=== PATIENT | male | born 1925 | race Caucasian/White ===

== ENCOUNTER 2016-12-26 11:50 | Inpatient (IN) | payer MEDICARE, OTHER ==
[2016-12-26] VITALS (29 sets, daily range): BP systolic 107–173; BP diastolic 56–147; PULSE 49–108; RESP 20; TEMP 93.5
[~2016-12-26] VITALS: Ht 157.5 cm; Wt 65.0 kg
[~2016-12-26 11:50] MED LIST: EPINEPHrine 0.1 MG/ML SYG ONE
[2016-12-26] MEDS ORDERED: VECURONIUM 100 MG in DEXTROSE 5% 100 ML IV ONE (11:54)
[2016-12-26] MEDS ORDERED: SODIUM CHLORIDE 0.9% 500 ML BAG IV* STA (11:54)
[2016-12-26] MEDS ORDERED: SOD CHLORIDE 0.9% 1,000 ML IV STA ×2 (11:54)
[2016-12-26] MEDS ORDERED: CEFEPIME 2GM/50 ML (PMX) 50 ML IVPB STA (11:54)
[2016-12-26] MEDS ORDERED: PROPOFOL 100 ML IV STA (11:54)
[2016-12-26] MEDS ORDERED: VECURONIUM 10 MG VIAL IV ONE (12:00)
[2016-12-26] MEDS ORDERED: VANCOMYCIN 1 GM (PMX) 250 ML IVPB ONE (12:00)
[2016-12-26] MEDS ORDERED: ASPIRIN 300 MG SUPP PR ONE (12:30)
[2016-12-26 12:36] LABS: WHITE BLOOD COUNT 13.1 10^3/ul (4.8-10.8)
[2016-12-26 12:37] LABS: ABNORMAL IP MESSAGE 1; BASOPHILS % 0.2 % (0.0-2.0); EOSINOPHILS # 0.2 10^3/ul (0.0-0.5); EOSINOPHILS % 1.3 % (0.0-7.0); HEMATOCRIT 36.7 % (42.0-52.0); HEMOGLOBIN 10.7 g/dl (14.0-18.0); LYMPHOCYTES % 30.5 % (15.0-51.0); MEAN CORPUSCULAR HEMOGLOBIN 29.6 pg (29.0-33.0); MEAN CORPUSCULAR HGB CONC 29.2 g/dl (32.0-37.0); MEAN CORPUSCULAR VOLUME 101.7 fl (82.0-101.0); MEAN PLATELET VOLUME 11.5 fl (7.4-10.4); MONOCYTE # 0.6 10^3/ul (0.3-0.9); MONOCYTES % 4.4 % (0.0-11.0); NEUTROPHIL # 7.5 10^3/ul (1.6-7.5); PLATELET COUNT 179 10^3/UL (140-415); POSITIVE DIFF @See below; RED BLOOD COUNT 3.61 10^6/ul (4.70-6.10)
[2016-12-26 12:52] LABS: INR 1.14; PROTIME 14.6 Sec (12.2-14.2); PT RATIO 1.1
[2016-12-26 12:53] LABS: PARTIAL THROMBOPLASTIN TIME 30.9 Sec (25.0-35.0)
[2016-12-26 12:57] LABS: ALANINE AMINOTRANSFERASE 55 IU/L (13-69); ALKALINE PHOSPHATASE 120 IU/L (42-121); ANION GAP 21 (8-16); ASPARTATE AMINO TRANSFERASE 71 IU/L (15-46); BILIRUBIN,INDIRECT 0.3 mg/dl (0-1.1); BILIRUBIN,TOTAL 0.3 mg/dl (0.2-1.3); BLOOD UREA NITROGEN 18 mg/dl (7-20); CALCIUM 8.1 mg/dl (8.4-10.2); CARBON DIOXIDE 22 mmol/L (21-31); CHLORIDE 104 mmol/L (97-110); CREATININE 1.07 mg/dl (0.61-1.24); GLUCOSE 270 mg/dl (70-220); PHOSPHORUS 7.6 mg/dl (2.5-4.9); SODIUM 143 mmol/L (135-144)
--- NOTE | 2016-12-26 13:00 | RADRPT ---
PROCEDURE: XR Chest 1 View. CLINICAL INDICATION: Chest pain, status post cardiac arrest. TECHNIQUE: AP view of the chest was obtained. COMPARISON: None. FINDINGS: The heart size is within normal limits. Calcified atherosclerosis is noted in the aorta. Endotrache al tube has its tip approximately 4.4 cm above the june. Mild central pulmonary vascular congestio n and interstitial prominence is seen in both lungs. Scattered atelectasis is noted in the bilateral lower lungs. No consolidations are identified. No pneumothorax is seen. Skin folds are seen over t he lateral left mid chest. The osseous structures appear grossly intact. IMPRESSION: Calcified atherosclerosis in the aorta. Endotracheal tube with its tip approximately 4.4 cm above the june. Mild central pulmonary vascular congestion and interstitial prominence in both lungs. Scattered atelectasis in the bilateral lower lungs. RPTAT: AA .Jr Andrade MD, Date Time Electronically viewed and signed by .Jr Andrade MD, on 12/26/2016 12:59 .P/
[2016-12-26 13:08] LABS: TROPONIN-I < 0.012 ng/ml (0.00-0.12)
--- NOTE | 2016-12-26 13:56 | ERD ---
ER Documentation Chief Complaint Chief Complaint cardiac arrest PEA in route, epi x2 given HPI Patient is an 89-year-old male who was brought in in full cardiac arrest. Please note the history and physical exam is limited given the patient's mental status. The patient was brought in by ambulance. He had a cardiac arrest at a nursing facility. He was given 2 epinephrine and was intubated in the field. End-tidal CO2 was within normal limits. When he arrived he was still receiving CPR by paramedics. I cannot obtain history otherwise. ROS All systems reviewed and are negative except as per history of present illness. Medications Home Meds Unable to Obtain Active Prescriptions or Reported Meds Allergies Allergies: Coded Allergies: Unknown: Unable to obtain (Unverified , 12/26/16) PMhx/Soc Medical and Surgical Hx: Unable to obtain Hx Alcohol Use: No Hx Substance Use: No Hx Tobacco Use: No Smoking Status: Unknown if ever smoked FmHx Unable to obtain Physical Exam Vitals Vital Signs Date Time Temp Pulse Resp B/P Pulse Ox O2 Delivery O2 Flow Rate FiO2 12/26/16 13:29 93.6 100 20 120/80 100 Room Air 12/26/16 12:26 20 100 100 12/26/16 12:09 96.4 12/26/16 11:54 96.4 45 19 92/58 97 Mechanical Ventilator 15.0 Physical Exam Const: [] Head: Atraumatic Eyes: Normal Conjunctiva ENT: Normal External Ears, Nose and Mouth. Neck: Full range of motion..~ No meningismus. Resp: Clear to auscultation bilaterally Cardio: Regular rate and rhythm, no murmurs Abd: Soft, non tender, non distended. Normal bowel sounds Skin: No petechiae or rashes Back: No midline or flank tenderness Ext: No cyanosis, or edema Neur: Awake and alert Psych: Normal Mood and Affect Result Diagram: 12/26/16 1220 12/26/16 1220 Results 24 hrs Laboratory Tests Test 12/26/16 12:20 White Blood Count 13.110^3/ul Red Blood Count 3.6110^6/ul Hemoglobin 10.7g/dl Hematocrit 36.7% Mean Corpuscular Volume 101.7fl Mean Corpuscular Hemoglobin 29.6pg Mean Corpuscular Hemoglobin Concent 29.2g/dl Red Cell Distribution Width 14.0% Platelet Count 12472^3/UL Mean Platelet Volume 11.5fl Neutrophils % 57.0% Lymphocytes % 30.5% Monocytes % 4.4% Eosinophils % 1.3% Basophils % 0.2% Nucleated Red Blood Cells % 0.0/100WBC Neutrophils # 7.510^3/ul Lymphocytes # 4.010^3/ul Monocytes # 0.610^3/ul Eosinophils # 0.210^3/ul Basophils # 0.010^3/ul Nucleated Red Blood Cells # 0.010^3/ul Prothrombin Time 14.6Sec Prothrombin Time Ratio 1.1 INR International Normalized Ratio 1.14 Activated Partial Thromboplast Time 30.9Sec Sodium Level 143mmol/L Potassium Level 4.0mmol/L Chloride Level 104mmol/L Carbon Dioxide Level 22mmol/L Anion Gap 21 Blood Urea Nitrogen 18mg/dl Creatinine 1.07mg/dl Glucose Level 270mg/dl Lactic Acid Level 9.5mmol/L Calcium Level 8.1mg/dl Phosphorus Level 7.6mg/dl Magnesium Level 2.0mg/dl Total Bilirubin 0.3mg/dl Direct Bilirubin 0.00mg/dl Indirect Bilirubin 0.3mg/dl Aspartate Amino Transf (AST/SGOT) 71IU/L Alanine Aminotransferase (ALT/SGPT) 55IU/L Alkaline Phosphatase 120IU/L Troponin I < 0.012ng/ml Total Protein 6.0g/dl Albumin 3.0g/dl Globulin 3.00g/dl Albumin/Globulin Ratio 1.00 Current Medications Medications (Trade) Dose Ordered Sig/[place] Route PRN Reason Start Time Stop Time Status Last Admin Dose Admin Cefepime HCl 50 ml @ 100 mls/hr ONCE STAT IVPB 12/26/16 11:54 12/26/16 12:23 DC Vancomycin HCl 250 ml @ 125 mls/hr ONCE ONCE IVPB 12/26/16 12:00 12/26/16 13:59 Sodium Chloride 1,000 ml @ 1,000 mls/hr Q1H STAT IV 12/26/16 11:54 12/26/16 12:53 DC 12/26/16 11:54 Sodium Chloride (NS) 1,000 ml @ 1,000 mls/hr Q1H STAT IV 12/26/16 11:54 12/26/16 12:53 DC 12/26/16 12:10 Sodium Chloride 500 ml 500 ml ONCE STAT IV* 12/26/16 11:54 12/26/16 11:58 DC 12/26/16 12:30 Propofol (Diprivan) 100 ml @ 0 mls/hr ONCE STAT IV 12/26/16 11:54 12/26/16 11:58 DC 12/26/16 12:15 Vecuronium [place] 10 mg 10 mg ONCE ONCE IV 12/26/16 12:00 12/26/16 12:01 DC 12/26/16 13:26 Vecuronium [place]/Dextrose (Norcuron/D5W) 100 ml @ 0 mls/hr Q0M ONCE IV 12/26/16 11:54 12/26/16 11:58 DC Aspirin (Aspirin) 300 mg ONCE ONCE [place] 12/26/16 12:30 12/26/16 12:31 DC 12/26/16 13:26 Procedures/MDM CT brain/chest/abdomen/pelvis pending at this time. EKG #1 read by me: Rate/Rhythm: Atrial fibrillation Intervals: Normal Impression: Atrial fibrillation without ST elevations or depressions EKG #2 read by me: Rate/Rhythm: Atrial fibrillation Intervals: Normal Impression: Atrial fibrillation without ST elevations or depressions Central Line Placement by me: Consent implied, sterilely draped, full prep, gown, glove, mask, time out performed. Anesthesia: 1% lidocaine locally Location: I initially tried left subclavian and was unsuccessful in placing the central line as I felt resistance, switched to right femoral Device: Multiple lumen Technique: Seldinger technique. Secured with suture. Results: Venous return from all ports with easy saline flush. No complications. Guide wire retrieved and disposed of. Chest x-ray post subclavian central line attempt shows no pneumothorax per radiology. ED Ultrasound: Central line placed by me using concurrent ultrasound guidance. Real time image archived in the medical record confirms vascular anatomy. PROCEDURE: XR Chest 1 View. CLINICAL INDICATION: Chest pain, status post cardiac arrest. TECHNIQUE: AP view of the chest was obtained. COMPARISON: None. FINDINGS: The heart size is within normal limits. Calcified atherosclerosis is noted in the aorta. Endotracheal tube has its tip approximately 4.4 cm above the june. Mild central pulmonary vascular congestion and interstitial prominence is seen in both lungs. Scattered atelectasis is noted in the bilateral lower lungs. No consolidations are identified. No pneumothorax is seen. Skin folds are seen over the lateral left mid chest. The osseous structures appear grossly intact. IMPRESSION: Calcified atherosclerosis in the aorta. Endotracheal tube with its tip approximately 4.4 cm above the june. Mild central pulmonary vascular congestion and interstitial prominence in both lungs. Scattered atelectasis in the bilateral lower lungs. RPTAT: AA .Jr Andrade MD, MD Date Time Electronically viewed and signed by .Jr Andrade MD, on 12/26/2016 12:59 Admit MDM: Patient's infectious symptoms have not stabilized and the patient is at risk of rapid decompensation. The patient will be admitted for careful hydration, antibiotic therapy, and infectious source control. Severe Sepsis criteria: Infectious source: Unclear source at this time End organ damage indicated by: Lactate greater than 2 Sepsis Management: Time of recognition of sepsis: 1220 Within 3 hours of recognition: Blood cultures x 2 before broad-spectrum antibiotics: Yes 30 ml/kg NS bolus Completed Initial lactate 9.5 Repeat lactate pending Time of recognition of septic shock: 1220 Septic Shock Assessment: Any lactic acid > 4.0 yes Persistent hypotension (SBP < 90 or 40 mmHg drop, MAP < 65) despite 30 mL/kg IV fluid bolus No Volume Re-assessment for Septic Shock (post 30 ml/kg bolus): Temp 93.6, BP 120/80, HR 100, RR 20, Pox 100% Heart tachycardic rate Lungs No crackles Skin Warm & dry Cap Refill Less than 2 seconds Peripheral pulses Radially present Persistent Hypotension Treatment: Comfort care No Central line right femoral line placed Vasopressor started Not required I considered further perfusion assessment with CVP measurement, SCVO2, bedside ultrasound volume assessment, passive leg raise, trial of further fluid bolus. And proceeded with 30 ml/kg fluid bolus of NSS, broad spectrum antibiotics, and admission. Hypothermia protocol was started as well as the patient had a cardiac arrest in the field and is still comatose. The patient was given aspirin per rectum given the cardiac arrest. At this point there was no sign of ventricular fibrillation or ventricular tachycardia. There was no ST elevations on the EKGs that were done. The patient's prognosis is poor given his age and discussion with family regarding goals of care may be appropriate. CT scans are pending at this time. Accepting Care Team Current data and ongoing care discussed. Admitting Physician: Dr. Bentley from the panel team for admission to the ICU Drill Press Operator Helper(s): Dr. Lopez from cardiology was called at 1154 and came to the bedside at approximately 1210 and decided that the patient would not be a candidate for cardiac catheterization emergently Outstanding Data: Culture results and repeat lactic acid Critical Care: Critical care time 55 minutes excluding all billable procedures Emergent fluid management while maintaining close respiratory support. Provision of immediate and broad-spectrum antibiotic therapy. Simultaneous assessment for possible sources in order to direct targeted therapy. Consideration for invasive and chemical support to prevent cardiopulmonary collapse. Departure Diagnosis: Primary Impression: Septic shock Additional Impressions: Cardiac arrest Anemia Anemia type: unspecified type Qualified Code: D64.9 - Anemia, unspecified type Hyperglycemia Condition: Critical MAJOR ROBIN MD Dec 26, 2016 13:56
[2016-12-26] MEDS ORDERED: SOD CHLORIDE 0.9% 100 ML ONE (14:00)
[2016-12-26] MEDS ORDERED: IOHEXOL 350MG/ML 50 ML BTL ONE (14:00)
[2016-12-26] MEDS ORDERED: IOHEXOL 100 ML ONE (14:00)
[2016-12-26 14:15] LABS: AADO2 Arterial 204.8 mmHg (7.0-24.0); Allen Test ACCEPTAB; Arterial Base Excess -8.8 mmol/L (-3.0-3); Arterial COHb 0.3 % (0.0-3.0); Arterial Fraction of Oxyhgb 98.9 % (93.0-99.0); Arterial HCO3 20.4 mmol/L (22.0-26.0); Arterial MetHb 0.4 % (0.0-1.5); Arterial Total Hemglobin 13.2 g/dl (12.0-18.0); MODE VENT - AC
--- NOTE | 2016-12-26 14:20 | RADRPT ---
PROCEDURE: CT HEAD NON CONTRAST CLINICAL INDICATION: Sepsis TECHNIQUE: Utilizing the multi-slice spiral CT scanner, multiple images were obtained through the b rain without intravenous contrast. Automatic exposure control was utilized as dose lowering techniqu e One of more of the following dose reduction techniques were utilized: -automatic exposure control.-a djustment of the mA and/or kV according to patient size. -Use of iterative reconstruction technique. Radiation Dose: CTDI is 43.05 mGy. DLP is 720.23 mGy-cm. COMPARISON: None FINDINGS: Ventricular system demonstrates dilated body of lateral ventricles, frontal and occipital horns. The temporal horns and fourth ventricle are small in size. Third ventricle is also enlarged. Minimal pe riventricular low density area suggestive of deep white matter ischemic changes. Proportionate overl norberto brain atrophy noted. No abnormal calcifications noted. Opacification of the ethmoid air cells n oted. The globe, retrobulbar area appears unremarkable. Calcification intracranial ICA noted at the level of cavernous sinus. Decreased aeration right mastoid air cells noted. IMPRESSION: Dilated lateral ventricles with occipital horns, rule out aqueductal stenosis. NO ACUTE INTRACRANIAL BLEED NOTED. RPTAT: AAOO Physician Rubens Date Time Electronically viewed and signed by Physician Rubens on 12/26/2016 14:20 MB/
--- NOTE | 2016-12-26 15:00 | RADRPT ---
PROCEDURE: CTA Chest and abdomen/pelvis. CLINICAL INDICATION: Chest pain and shortness of breath. TECHNIQUE: CT scan of the chest and CT pulmonary angiogram was performed on a multidetector high-r esolution CT scanner. High-resolution thin slice coronal and sagittal imaging was obtained from the axial source images. 3-D volumetric rendered post processing was performed as well. The images wer e reviewed on a PACS workstation. The total exam CTDI equals 57 mGy, and the total exam DLP equals 8 50 mGy-cm. One or more of the following dose reduction techniques were used: Automated exposure control. Adjustment of the mA and/or kV according to patient size. Use of iterative reconstruction technique. COMPARISON: No priors for comparison FINDINGS: CT chest: The trachea is midline. Tracheostomy tube in situ. No significant axillary lymphadenopathy. The thyr oid gland is unremarkable. No significant axillary lymphadenopathy. No significant mediastinal lymph adenopathy. The aorta is within limits. No aneurysmal dilatation or dissection. Pulmonary arterial trunk is norm al size. No abnormal enhancement artery and its segmental branches. Heart size is enlarged. There is no significant pericardial effusion. Right upper lobe focal opacification and left upper lobe apical focal opacification is noted. There are bilateral ground-glass opacities. There is a small right middle and lower lobe pneumothorax, wit h pleural separation measuring up to 1.6 cm. Airways are patent. Hepatic morphology is within limits. No gross masses or lesions. Gallbladder is unremarkable. No yuniel dence of intrahepatic or extrahepatic biliary dilatation. The spleen is decreased in size. Pancreas is within normal limits. Both adrenal glands are within normal limits. There is a horseshoe kidney. No evidence of obstruction or hydronephrosis. The visualized GI tract demonstrates distension fluid-filled of the stomach. Fluid-filled loops of s mall bowel identified, which a mildly dilated without gross transition point. No obstruction. The ap pendix is within limits. Fluid-filled loops of large bowel noted as well. The aorta demonstrates atherosclerotic calcification and tortuosity. No aneurysmal dilatation or dis section. CT pelvis: A Mares catheters noted within the bladder. Prostate was normal size. The rectosigmoid colon demonst rate diverticulosis. No significant free fluid. No significant pelvic lymphadenopathy. There are fat -containing bilateral inguinal hernias. A right-sided central venous catheter is identified distal t ip within the right internal iliac vein. The visualized osseous structures demonstrates multilevel degenerative disease of the spine. IMPRESSION: 1. No evidence of aortic aneurysm or dissection. No evidence of acute pulmonary emboli. 2. SMALL RIGHT-SIDED PNEUMOTHORAX DOWN WITHIN THE RIGHT MIDDLE AND LOWER LOBE ANTERIORLY, WITH PLEUR AL SEPARATION MEASURING UP TO 1.6 CM. 3. Nonspecific mediastinal lymph nodes. 4. Bilateral ground-glass opacities probably edema. 5. Focal right upper lobe and left lower lobe opacities, probably focal atelectasis. 6. No evidence of bowel obstruction. Multiple fluid-filled loops of small bowel, which are mildly di stended and fluid filled stomach which is distended. No evidence of transition point. Findings are s uggestive of ileus and gastroparesis. 7. The appendix is within normal limits. 8. No evidence of intra-abdominal/pelvic aorta dissection or periaortic fluid. 9. Sigmoid colon diverticulosis. 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 No obstruction hydronephrosis. Findings were discussed with Dr. Hinton on December 26, 2016 at 3 o'clock p.m. RPTAT: AAPP Physician Amalia Date Time Electronically viewed and signed by Physician Amalia on 12/26/2016 15:00 CINDY/
[2016-12-26] MEDS ORDERED: SOD CHLORIDE 0.9% 1,000 ML IV ONE ×2 (15:30)
--- NOTE | 2016-12-26 17:16 | RADRPT ---
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 Physician: MAJOR ROBIN Quality: Technically Difficult Study Procedures: Transthoracic echocardiogram with complete 2D, M-Mode, and doppler examination. Indications: Cardiac Arrest. 2D/M Mode Doppler Measurement Value Normal Ranges Measurement Value Normal Ranges LVIDd 2D 3.6 3.5 - 5.6 cm AV Peak Mark 0.9 m/sec LVIDs 2D 3.0 2.1 - 4.1 cm AV Peak PG 3.1 mmHg LVPWd 2D 1.5 0.6 - 1.1 cm AI Peak PG 31.0 mmHg IVSd 2D 1.5 0.6 - 1.1 cm AI Peak Mark 2.8 m/sec AoR Diam 2D 3.2 2.0 - 3.7 cm AI PHT 555.9 msec EDV 2D 53.1 cm3 LVOT Peak Mark 0.7 m/sec ESV 2D 26.4 cm3 LVOT Peak PG 2.0 mmHg LA Dimen 2D 2.9 2.3 - 4.0 cm MV E Peak Mark 0.4 m/sec MV A Peak Mark 0.7 m/sec MV E/A 0.6 MV Decel Time 244 msec MV Decel [place] 2 MV E/A 0.6 TR Peak Mark 3.3 m/sec TR Peak PG 43.0 mmHg RVSP 53.0 mmHg Findings Left Ventricle: Lower limits of normal systolic function. Normal left ventricular cavity size. Moderate concentric left ventricular hypertrophy. Paradoxical septal motion consistent with IVCD or bundle branch block. Ejection fraction is visually estimated at 50 %. Tissue Doppler/Mitral Doppler indices are consistent with impaired relaxation (Stage I diastolic dysfunction). Multiple segmental wall motion abnormalities. Right Ventricle: Normal right ventricular size. Normal right ventricular systolic function. Left Atrium: The left atrium is normal in size. Right Atrium: The right atrium is normal in size. Mitral Valve: Mild mitral leaflet calcification. Mild mitral annular calcification. Trace mitral regurgitation. Aortic Valve: Normal appearance of the aortic valve. No significant aortic stenosis or insufficiency. Aortic cusps appear mildly calcified. Mild to moderate aortic valve regurgitation. Tricuspid Valve: Normal appearance of the tricuspid valve. Estimated peak PA systolic pressure 53 mmHg. There is mild tricuspid regurgitation. Pulmonic Valve: Pulmonic valve not well visualized. There is trace pulmonic regurgitation. Pericardium: Normal pericardium with no significant pericardial effusion. Aorta: Normal aortic root. IVC: Normal IVC with poor respiratory collapse, however patient on ventilator. Conclusions 1.Lower limits of normal systolic function. Normal left ventricular cavity size. Moderate concentric left ventricular hypertrophy. Paradoxical septal motion consistent with IVCD or bundle branch block. Ejection fraction is visually estimated at 50 %. Tissue Doppler/Mitral Doppler indices are consistent with impaired relaxation (Stage I diastolic dysfunction). Multiple segmental wall motion abnormalities. 2.Mild mitral leaflet calcification. Mild mitral annular calcification. Trace mitral regurgitation. 3.Normal appearance of the aortic valve. No significant aortic stenosis or insufficiency. Aortic cusps appear mildly calcified. Mild to moderate aortic valve regurgitation. 4.Normal IVC with poor respiratory collapse, however patient on ventilator. Electronically Signed By: Ar Lopez 26-Dec-2016 17:15:39 -0700 Patient Name: JAYCEE BUI Study Date: 26-Dec-2016 [id number]
[2016-12-26] MEDS ORDERED: VANCOMYCIN IV PER PHARMACY XX SCH (17:30)
--- NOTE | 2016-12-26 17:37 | HP ---
Date/Time of Note Date/Time of Note DATE: 12/26/16 TIME: 17:21 Assessment/Plan VTE Prophylaxis VTE Prophylaxis Intervention: LMWH Assessment/Plan Chief Complaint/Hosp Course 89 yo male with unknown medical history preventing after PEA arrest, now with ROSC undergoing hypothermia protocol, small pneumothorax also present s/p PEA arrest: - Hypothermia protocol - Will work to obtain collateral regarding possible advanced directives Respiratory failure: - Continue mechanical ventilation via ETT Pneumothorax: - Likely from attempted IJ CVL, serial XR to ICU 40 minutes ICU time Problems: HPI/ROS Admit Date/Time Admit Date/Time Hx of Present Illness 89 yo male long term resident with unclear medical history who presented after found with PEA arrest at CT. EMS there initiated ACLS. Intubated in field. Received 2 rounds of epinephrine in the field. Available strips show junctional rhythm, here patient in NSR. He has been started on hypothermia protocol. No further history able to be obtained PMH/Family/Social Past Medical History Medical History: no pertinent history Social History Smoking Status: Unknown if ever smoked Exam/Review of Systems Vital Signs Vitals Vital Signs Date Time Temp Pulse Resp B/P Pulse Ox O2 Delivery O2 Flow Rate FiO2 12/26/16 16:45 92.7 68 20 148/97 100 12/26/16 15:45 Mechanical Ventilator 12/26/16 14:51 100 12/26/16 11:54 15.0 Exam Exam Intubated, sedated No pupillary response. No gag No response to noxious stimuli throughout Heart sounds regular Lungs clear No edema Constitutional: alert, distress, frail, non-verbal, oriented, other, well developed Psych: nl mood/affect, no complaints Head: atraumatic, normocephalic Eyes: EOMI, PERRL, nl conjunctiva, nl lids, nl sclera ENMT: nl external ears & nose, nl lips & teeth, nl nasal mucosa & septum Neck: non-tender, supple Respiratory: clear to auscultation, normal air movement Cardiovascular: nl pulses, regular rate and rhythm Gastrointestinal: nl liver, spleen, non-tender, soft Musculoskeletal: nl extremities to inspection Extremities: normal pulses Neurological: HOME DAY CARE PROVIDER II-XII intact, nl mental status, nl speech, nl strength Skin: nl turgor, No rash or lesions Lymph: nl lymph nodes Labs Result Diagram: 12/26/16 1220 12/26/16 1220 Medications Medications Current Medications Cefepime HCl (Maxipime 2gm/50 ml (Pmx)) 50 ml @ 100 mls/hr Q12 IVPB ; Start at 21:00; Status MIGUEL ANGEL BURTON MD Dec 26, 2016 17:31
[2016-12-26] MEDS ORDERED: ACETAMINOPHEN 650 MG SUPP PR PRN (18:00)
[2016-12-26] MEDS: OCULAR LUBRICANT 3.5 GM OPH OINT BOTH EYES SCH (18:00)
[2016-12-26] MEDS ORDERED: MEPERIDINE 25 MG INJ IV PRN ×2 (18:00)
[2016-12-26] MEDS: ARTIFICIAL TEARS 15 ML OPH BOTH EYES SCH (18:00)
[2016-12-26] MEDS ORDERED: ACETAMINOPHEN 650MG/20.3ML CUP PO PRN (18:00)
--- NOTE | 2016-12-26 19:34 | CONS ---
Date/Time of Note Date/Time of Note DATE: 12/26/16 TIME: 19:23 Assessment/Plan Assessment/Plan Chief Complaint/Hosp Course 1. cardiopulmonary arrest: appears probably related to pulm arrest 2. abnormal ECG 3. Likely anoxic brain injury 4. sepsis 5. severe lactic acidosis 6. hx dementia. 7. short P afib post arrest 8. small pneumothorax 9. hypoxemic resp failure: intubated now. Recommendations: Patient has been placed on hypothermia protocol. We will continue and complete the hypothermia protocol. IV fluid has been given. Lactate is decreasing. Patient will be admitted to ICU for close monitoring. CODE STATUS discussed with the patient daughter and ex-. At this point at least they want the patient to be full code. It was explained to them the poor prognosis. Especially neurological recovery At this point I do not believe the patient would be benefited from emergent cardiac catheterization. His EF is preserved there was no report of chest pain. Troponin is negative already. And patient has severe neurological unresponsiveness. We will repeat the cardiac enzymes tomorrow morning to monitor. When support respiratory care will be continued as well. Pulmonary has been already been consulted to evaluate the patient. Continue with ICU care. More than 45 minutes of critical care time was spent management treatment on this critically ill patient excluding any procedures. Thank you for his referral. We will continue to follow along with you. MARYA SAUER MD [facility] Problems: Consultation Date/Type/Reason Admit Date/Time Date of Consultation: Dec 26, 2016 Type of Consultation: interventional cardiology Reason for Consultation cardiac arrest. Referring Provider: MAJOR ROBIN MD Hx of Present Illness Emergent Interventional cardiology consultation CC: cardiac arrest HPI: Given his referral. History was obtained from discussion multiple physicians including ER physician as well as discussion with the family patient's daughter and patient's ex-. Patient apparently has history of dementia. He lives in a [facility]. The patient was brought in by ambulance. He had a cardiac arrest at [facility]. He was given 2 epinephrine and was intubated in the field. When he arrived he was still receiving CPR by paramedics since then he has regained his pulse and blood pressure. Patient remained unresponsive and had to be placed on hypothermia protocol. Eligibility Consultant EKG during the cold has shown idioventricular rhythm. Rhythm strip now shows normal sinus rhythm. According to the family patient has had bronchitis over the past few days. Family says that the patient has never had any cardiac history. Past medical history only dementia according to the family Allergies: No known drug allergies Medications were reviewed Social history patient lives in a boarding care. He has 1 daughter. He has ex- who is currently at the bedside. Family history: No reported early coronary artery disease. Review of system: As above only the basic was obtained. Psychological: nl mood/affect, no complaints Past Medical History Medical History: no pertinent history Social History Smoking Status: Unknown if ever smoked Exam/Review of Systems Vital Signs Vitals Vital Signs Date Time Temp Pulse Resp B/P Pulse Ox O2 Delivery O2 Flow Rate FiO2 12/26/16 18:30 91.0 51 20 151/93 100 12/26/16 18:19 100 12/26/16 15:45 Mechanical Ventilator 12/26/16 11:54 15.0 Exam General: s/p intubation on vent and non responsive. HEENT: NC/AT. pupils are . round. NECK: no stridor. CV: RRR. systolic murmur; no gallop or rubs. PULM: + diffuse rhonchi. GI: SOFT, NT, ND, no rebound or guarding Extremity: trace B/L LE edema. no clubbing. neuro: non responsive Psych: unable to assess rectal: deferred : normal male ECG as above echo personally reviewed: 1. Lower limits of normal systolic function. Normal left ventricular cavity size. Moderate concentric left ventricular hypertrophy. Paradoxical septal motion consistent with IVCD or bundle branch block. Ejection fraction is visually estimated at 50 %. Tissue Doppler/Mitral Doppler indices are consistent with impaired relaxation (Stage I diastolic dysfunction). Multiple segmental wall motion abnormalities. 2. Mild mitral leaflet calcification. Mild mitral annular calcification. Trace mitral regurgitation. 3. Normal appearance of the aortic valve. No significant aortic stenosis or insufficiency. Aortic cusps appear mildly calcified. Mild to moderate aortic valve regurgitation. 4. Normal IVC with poor respiratory collapse, however patient on ventilator. CT Chest results reviewed. CXR reviewed. Results Result Diagram: 12/26/16 1220 12/26/16 1220 Results 24 hrs Laboratory Tests Test 12/26/16 11:54 12/26/16 12:20 12/26/16 14:02 12/26/16 16:43 Blood Gas Specimen Source Blood arterial Arterial Blood Date Drawn 12/26/2016 2:00:45 PM Arterial Blood pH (Temp corrected) 7.161 *L Arterial Blood pCO2 (Temp correct) 58.4 H Arterial Blood pO2 (Temp corrected) 449.8 H Arterial Blood HCO3 20.4 L Arterial Blood Base Excess -8.8 L Arterial Blood Oxygen Saturation 99.6 Abdoulaye Test ACCEPTAB Arterial Blood Gas Puncture Site Right Radial Arterial Blood Carboxyhemoglobin 0.3 Arterial Blood Methemoglobin 0.4 Blood Gas A-a O2 Differential 204.8 H Oxyhemoglobin Percent 98.9 Total Hemoglobin 13.2 Blood Gas Temperature 37.0 Blood Gas Respiration Rate 20.0 Blood Gas Actual Respiration Rate 20 Blood Gas Modality VENT - AC FiO2 100.0 Blood Gas Tidal Volume 450.0 Blood Gas Low PEEP Setting 5.0 Blood Gas Critical Value Read Back DR LOBITO Rod Blood Gas Notified Whom CINDYD Blood Gas Notified Time 12/26/2016 2:15:36 PM White Blood Count 13.1 H Red Blood Count 3.61 L Hemoglobin 10.7 L Hematocrit 36.7 L Mean Corpuscular Volume 101.7 H Mean Corpuscular Hemoglobin 29.6 Mean Corpuscular Hemoglobin Concent 29.2 L Red Cell Distribution Width 14.0 Platelet Count 179 Mean Platelet Volume 11.5 H Neutrophils % 57.0 Lymphocytes % 30.5 Monocytes % 4.4 Eosinophils % 1.3 Basophils % 0.2 Nucleated Red Blood Cells % 0.0 Neutrophils # 7.5 Lymphocytes # 4.0 H Monocytes # 0.6 Eosinophils # 0.2 Basophils # 0.0 Nucleated Red Blood Cells # 0.0 Prothrombin Time 14.6 H Prothrombin Time Ratio 1.1 INR International Normalized Ratio 1.14 Activated Partial Thromboplast Time 30.9 Sodium Level 143 Potassium Level 4.0 Chloride Level 104 Carbon Dioxide Level 22 Anion Gap 21 H Blood Urea Nitrogen 18 Creatinine 1.07 Glucose Level 270 H Lactic Acid Level 9.5 *H 4.6 *H 3.8 *H Calcium Level 8.1 L Phosphorus Level 7.6 H Magnesium Level 2.0 Total Bilirubin 0.3 Direct Bilirubin 0.00 Indirect Bilirubin 0.3 Aspartate Amino Transf (AST/SGOT) 71 H Alanine Aminotransferase (ALT/SGPT) 55 Alkaline Phosphatase 120 Troponin I < 0.012 Total Protein 6.0 L Albumin 3.0 L Globulin 3.00 Albumin/Globulin Ratio 1.00 Medications Medications Current Medications Acetaminophen (Tylenol Supp) 650 mg Q4H PRN [place] TEMP > 37C; Start 12/26/16 at 18 :00 Acetaminophen (Tylenol Liquid) 650 mg Q4H PRN PO TEMP > 37C; Start 12/26/16 at 18:00 Acetaminophen (Tylenol Supp) 500 mg Q6H [place] ; Start 12/27/16 at 18:00 Acetaminophen (Tylenol Liquid) 500 mg Q6H PO ; Start 12/27/16 at 18:00 Meperidine HCl (Demerol) 12.5 mg Q4H PRN IV POST OPERATIVE SHIVERING; Start at 18:00 Meperidine HCl (Demerol) 25 mg Q4H PRN IV POST OPERATIVE SHIVERING; Start 12/26 at 18:00 Eye Lubricant (Akwa Oint) 1 applic Q6 BOTH EYES ; Start 12/26/16 at 18:00 Eye Lubricant 2 drop 2 drop Q6 BOTH EYES ; Start 12/26/16 at 18:00 Dextrose/Sodium Chloride (D5-1/2ns) 1,000 ml @ 100 mls/hr Q10H IV ; Start 12/26 at 18:00 MARYA SAUER MD Dec 26, 2016 19:34
[2016-12-26 20:17] LABS: CK-MB 4.47 ng/ml (0.0-2.4)
[2016-12-26 20:19] LABS: TROPONIN-I 0.129 ng/ml (0.00-0.12)
[2016-12-26 20:27] LABS: AADO2 Arterial 596.5 mmHg (7.0-24.0); Allen Test ACCEPTAB; Arterial Base Excess -6.1 mmol/L (-3.0-3); Arterial COHb 0.3 % (0.0-3.0); Arterial Fraction of Oxyhgb 92.9 % (93.0-99.0); Arterial HCO3 20.7 mmol/L (22.0-26.0); Arterial MetHb 0.2 % (0.0-1.5); Arterial Total Hemglobin 13.8 g/dl (12.0-18.0); MODE VENT - AC
[2016-12-26] MEDS ORDERED: CEFEPIME 2GM/50 ML (PMX) 50 ML IVPB SCH (21:00)
[2016-12-26 21:41] LABS: ABNORMAL IP MESSAGE 1; HEMATOCRIT 40.6 % (42.0-52.0); HEMOGLOBIN 12.7 g/dl (14.0-18.0); MEAN CORPUSCULAR HEMOGLOBIN 30.5 pg (29.0-33.0); MEAN CORPUSCULAR HGB CONC 31.3 g/dl (32.0-37.0); MEAN CORPUSCULAR VOLUME 97.6 fl (82.0-101.0); MEAN PLATELET VOLUME 10.9 fl (7.4-10.4); PLATELET COUNT 160 10^3/UL (140-415); POSITIVE DIFF @See below; RED BLOOD COUNT 4.16 10^6/ul (4.70-6.10); RED CELL DISTRIBUTION WIDTH 13.8 % (11.5-14.5); WHITE BLOOD COUNT 5.6 10^3/ul (4.8-10.8)
[2016-12-26] MEDS ORDERED: ATROPINE 1 MG/10 ML SYRINGE IV PRN (22:00)
[2016-12-26 22:13] LABS: INR 1.11; PARTIAL THROMBOPLASTIN TIME 29.5 Sec (25.0-35.0); PROTIME 14.3 Sec (12.2-14.2); PT RATIO 1.1
[2016-12-26 22:24] LABS: CALCIUM 7.9 mg/dl (8.4-10.2); MAGNESIUM 1.7 mg/dl (1.7-2.5); PHOSPHORUS 3.2 mg/dl (2.5-4.9)
[2016-12-26] MEDS ORDERED: PROPOFOL 100 ML ONE (23:06)
[2016-12-26 23:18] LABS: LYMPHOCYTES # 0.6 10^3/ul (0.8-2.9); MONOCYTE # 0.3 10^3/ul (0.3-0.9); MONOCYTES % (M) 6 % (0-11)
[2016-12-26 23:19] LABS: BURR CELLS 2+
[2016-12-26] MEDS ORDERED: VECURONIUM 100 MG in DEXTROSE 5% 100 ML IV SCH (23:30)
[2016-12-26] MEDS ORDERED: DEXTROSE 50% 50 ML SYRINGE IV PRN ×2 (23:30)
[2016-12-26] MEDS: PROPOFOL 100 ML IV SCH (23:47)
[2016-12-26] MEDS: ACCU-CHEK XX SCH (23:48)
[2016-12-26] MEDS: DEXTROSE 5%-0.45% NACL 1,000 ML IV SCH (23:48)
[2016-12-27] VITALS (85 sets, daily range): BP systolic 90–145; BP diastolic 51–87; PULSE 57–96; RESP 17–30; Ht 157.5 cm; Wt 65.0 kg
[2016-12-27] MEDS: ACCU-CHEK XX SCH ×22 (00:48→23:13)
[2016-12-27] MEDS: INSULIN HUMAN REGULAR 100 UNIT in SOD CHLORIDE 0.9% 99 ML IV SCH (00:53)
[2016-12-27] MEDS: OCULAR LUBRICANT 3.5 GM OPH OINT BOTH EYES SCH ×4 (00:56→17:47)
[2016-12-27] MEDS: ARTIFICIAL TEARS 15 ML OPH BOTH EYES SCH ×4 (00:56→17:47)
[2016-12-27 01:25] LABS: INR 1.11; PROTIME 14.3 Sec (12.2-14.2); PT RATIO 1.1
[2016-12-27 01:32] LABS: CALCIUM 7.9 mg/dl (8.4-10.2); CREATININE 0.63 mg/dl (0.61-1.24); POTASSIUM 3.4 mmol/L (3.5-5.1)
[2016-12-27 01:41] LABS: BILIRUBIN,INDIRECT 0.1 mg/dl (0-1.1); CALCIUM 7.9 mg/dl (8.4-10.2); CREATININE 0.64 mg/dl (0.61-1.24); MAGNESIUM 1.7 mg/dl (1.7-2.5); POTASSIUM 3.2 mmol/L (3.5-5.1)
[2016-12-27 01:42] LABS: ALBUMIN 3.2 g/dl (3.3-4.9); ALBUMIN/GLOBULIN RATIO 0.94; BILIRUBIN,TOTAL 0.1 mg/dl (0.2-1.3); TOTAL PROTEIN 6.6 g/dl (6.1-8.1)
[2016-12-27 01:49] LABS: TROPONIN-I 0.118 ng/ml (0.00-0.12)
[2016-12-27 02:45] LABS: AADO2 Arterial 214.6 mmHg (7.0-24.0); Allen Test ACCEPTAB; Arterial Base Excess -11.4 mmol/L (-3.0-3); Arterial COHb 0 % (0.0-3.0); Arterial Fraction of Oxyhgb 96.1 % (93.0-99.0); Arterial HCO3 15.9 mmol/L (22.0-26.0); Arterial MetHb 0.2 % (0.0-1.5); Arterial Total Hemglobin 12.6 g/dl (12.0-18.0); MODE VENT - AC
[2016-12-27] MEDS ORDERED: VANCOMYCIN IV PER PHARMACY XX SCH ×2 (03:00)
[2016-12-27 03:53] LABS: AADO2 Arterial 239.6 mmHg (7.0-24.0); Allen Test ACCEPTAB; Arterial Base Excess -7.3 mmol/L (-3.0-3); Arterial COHb 0.1 % (0.0-3.0); Arterial Fraction of Oxyhgb 96.3 % (93.0-99.0); Arterial HCO3 20.2 mmol/L (22.0-26.0); Arterial MetHb 0.3 % (0.0-1.5); Arterial Total Hemglobin 14.3 g/dl (12.0-18.0); MODE VENT - AC
[2016-12-27] MEDS: DEXTROSE 5%-0.45% NACL 1,000 ML IV SCH ×3 (04:00→23:11)
--- NOTE | 2016-12-27 04:09 | CONS ---
DATE OF ADMISSION: 12/26/2016 DATE OF CONSULTATION: TYPE OF CONSULTATION: Pulmonary. REASON FOR CONSULTATION: Cardiac arrest and hypothermia protocol. HISTORY OF PRESENT ILLNESS: This is an 89-year-old gentleman transferred [facility] where he was found unresponsive in full arrest, received ACLS protocol with return of circulatio n, brought to the emergency room on mechanical ventilation requiring initiation of hypothermia elsie col. Few further details are available. At this point, no family members are present. PAST MEDICAL HISTORY: Unknown. MEDICATIONS PRIOR TO ADMISSION: Unknown. PHYSICAL EXAMINATION: GENERAL: Elderly-appearing gentleman, intubated on mechanical ventilation, appears comfortable at r est following hypothermia protocol. VITAL SIGNS: Temperature is 92, pulse 68, blood pressure 148/97, O2 saturation 96% on FiO2 of 100%, orally intubated. HEENT: Dry mucous membranes. Pupils are sluggish. CARDIAC: S1, S2, no added sounds or murmurs. CHEST: Diminished air entry bilaterally. ABDOMEN: Soft, nontender. No guarding or rebound. EXTREMITIES: No cyanosis, clubbing, 1+ edema. NEUROLOGIC: Unable to assess. LABORATORY DATA: White count 13.1, hemoglobin 10.7, platelets 176. Lactic acid initially 9.5, now 4.6, BUN 18, creatinine 1.07. Initial arterial blood gas pH 7.16 with a bicarbonate of 20. Repeat blood gas is pending. DIAGNOSTIC DATA: Chest x-ray was reviewed, showed mild increased vascular congestion. CT angiogram was performed and demonstrated no aortic dissection, no pulmonary embolus, small right pneumothorax , likely iatrogenic following attempted subclavian line placement. Focal right upper lobe opacity n oted. IMPRESSION: 1. Cardiopulmonary arrest. 2. Possible aspiration pneumonia. 3. Likely iatrogenic right pneumothorax. 4. Hypoxemic respiratory failure. 5. Incomplete data. PLAN: 1. Continue hypothermia protocol. 2. Broad-spectrum antibiotics for possible aspiration pneumonia. 3. Fluid resuscitation. 4. Serial chest x-ray and chest tube placement if needed. 5. Obtain all records from [facility]. 6. Contact family. Discuss goals of care. Dictated By: REJI KWAN/MICHAEL Conf#: [id number] DID#: [id number]
[2016-12-27 04:35] LABS: HEMATOCRIT 41.7 % (42.0-52.0); HEMOGLOBIN 12.7 g/dl (14.0-18.0); MEAN CORPUSCULAR HEMOGLOBIN 29.9 pg (29.0-33.0); MEAN CORPUSCULAR VOLUME 98.1 fl (82.0-101.0); RED BLOOD COUNT 4.25 10^6/ul (4.70-6.10); WHITE BLOOD COUNT 3.8 10^3/ul (4.8-10.8)
[2016-12-27 04:36] LABS: MEAN CORPUSCULAR HGB CONC 30.5 g/dl (32.0-37.0); MEAN PLATELET VOLUME 11.2 fl (7.4-10.4); PLATELET COUNT 141 10^3/UL (140-440); RED CELL DISTRIBUTION WIDTH 14.2 % (11.5-14.5)
[2016-12-27 05:22] LABS: GIANT THROMBO% (M) 3 % (0-0); METAMYELOCYTES %M 3 % (0-0); MONOCYTES % (M) 2 % (0-11); MYELOCYTES % (M) 2 % (0-0); PLATELET ESTIMATE DECREASED; POIKILOCYTOSIS 3+ (0-0); PROMYELOCYTES % (M) 2 % (0-0); REACTIVE LYMPHOCYTES% (M) 1 % (0-0)
[2016-12-27 06:09] LABS: ABNORMAL IP MESSAGE 1; BASOPHILS % 0.3 % (0.0-2.0); HEMATOCRIT 41.8 % (42.0-52.0); HEMOGLOBIN 12.8 g/dl (14.0-18.0); LYMPHOCYTES # 0.3 10^3/ul (0.8-2.9); LYMPHOCYTES % 9.7 % (15.0-51.0); MEAN CORPUSCULAR HEMOGLOBIN 30.5 pg (29.0-33.0); MEAN CORPUSCULAR HGB CONC 30.6 g/dl (32.0-37.0); MEAN CORPUSCULAR VOLUME 99.5 fl (82.0-101.0); MEAN PLATELET VOLUME 10.7 fl (7.4-10.4); MONOCYTE # 0.2 10^3/ul (0.3-0.9); MONOCYTES % 6.6 % (0.0-11.0); NEUTROPHIL # 2.9 10^3/ul (1.6-7.5); NEUTROPHILS % 83.1 % (39.0-77.0); PLATELET COUNT 146 10^3/UL (140-415); POSITIVE DIFF @See below; RED CELL DISTRIBUTION WIDTH 13.9 % (11.5-14.5); WHITE BLOOD COUNT 3.5 10^3/ul (4.8-10.8)
[2016-12-27 06:15] LABS: AADO2 Arterial 233.9 mmHg (7.0-24.0); Allen Test ACCEPTAB; Arterial COHb 0.3 % (0.0-3.0); Arterial Fraction of Oxyhgb 96.7 % (93.0-99.0); Arterial MetHb 0.2 % (0.0-1.5); MODE VENT - AC
[2016-12-27 06:30] LABS: INR 1.13; PARTIAL THROMBOPLASTIN TIME 30.3 Sec (25.0-35.0); PROTIME 14.5 Sec (12.2-14.2); PT RATIO 1.1
[2016-12-27 06:42] LABS: ALBUMIN 2.7 g/dl (3.3-4.9); ALBUMIN/GLOBULIN RATIO 0.84; BILIRUBIN,INDIRECT 0.1 mg/dl (0-1.1); BILIRUBIN,TOTAL 0.1 mg/dl (0.2-1.3); CALCIUM 7.8 mg/dl (8.4-10.2); CREATININE 0.68 mg/dl (0.61-1.24); MAGNESIUM 1.6 mg/dl (1.7-2.5); PHOSPHORUS 2.4 mg/dl (2.5-4.9); TOTAL PROTEIN 5.9 g/dl (6.1-8.1)
[2016-12-27 06:50] LABS: TROPONIN-I 0.103 ng/ml (0.00-0.12)
[2016-12-27 06:51] LABS: POTASSIUM 2.7 mmol/L (3.5-5.1)
[2016-12-27 06:52] LABS: CK-MB 8.22 ng/ml (0.0-2.4); TROPONIN-I 0.119 ng/ml (0.00-0.12)
[2016-12-27] MEDS ORDERED: POTASSIUM CHLORIDE 250 ML ONE (06:55)
[2016-12-27] MEDS: POTASSIUM CHLORIDE 250 ML IVPB SCH ×2 (07:02→10:39)
--- NOTE | 2016-12-27 07:45 | RADRPT ---
PROCEDURE: XR Chest. CLINICAL INDICATION: resp failure TECHNIQUE: Single portable view of the chest was obtained COMPARISON: Chest plain film 12/26/2016, CTA chest 12/27/2016. FINDINGS: Endotracheal tube terminates 2.9 cm above the june. Nasogastric tube extends below the left hemidi aphragm. Cardiomediastinal silhouette is stable in size and configuration. Thoracic aortic degenerat jairon changes are present. A small right-sided pneumothorax demonstrated on CT chest of reference is n ot conspicuous. Again demonstrated are airspace opacities within the right upper and left mid lung. Healed right 6 posterior rib fracture is noted. IMPRESSION: 1. Known small right-sided pneumothorax per CTA chest of reference is not conspicuous. 2. Unchanged right upper and left mid lung airspace opacities. 3. Support lines and tubes in satisfactory position. RPTAT: HRSR Physician Raúl Date Time Electronically viewed and signed by Physician Raúl on 12/27/2016 07:44 RR/
[2016-12-27 09:39] LABS: ACANTHOCYTES 1+ (0-0); ANISOCYTOSIS 1+ (0-0); BURR CELLS 2+ (0-0); GIANT THROMBO% (M) 5 % (0-0); METAMYELOCYTES %M 1 % (0-0); MONOCYTES % (M) 6 % (0-11); MYELOCYTES % (M) 1 % (0-0); OVALOCYTES 1+ (0-0); PLASMAC%(M) 1 % (0); PLATELET ESTIMATE DECREASED; POIKILOCYTOSIS 3+ (0-0)
[2016-12-27] MEDS ORDERED: VECURONIUM 100 MG in DEXTROSE 5% 100 ML IV SCH ×2 (10:00→14:30)
[2016-12-27] MEDS: PROPOFOL 100 ML IV SCH ×3 (11:30→18:31)
[2016-12-27] MEDS: VANCOMYCIN 1 GM in NS 250 ML IVPB SCH (11:48)
--- NOTE | 2016-12-27 12:02 | CONS ---
Date/Time of Note Date/Time of Note DATE: 12/27/16 TIME: 11:57 Consult Date/Type/Reason Admit Date/Time Dec 26, 2016 at 12:45 Initial Consult Date 12/26/16 Type of Consultation: Pulm/CCM Ordering Provider: MAJOR ROBIN MD Subjective On hypothermia protocol. Sedated and on NMB. Objective Vital Signs Date Time Temp Pulse Resp B/P Pulse Ox O2 Delivery O2 Flow Rate FiO2 12/27/16 11:30 91.6 24 93/55 100 12/27/16 11:00 67 Mechanical Ventilator 12/27/16 08:00 50 12/26/16 11:54 15.0 Intake and Output 12/26/16 12/26/16 12/27/16 15:00 23:00 07:00 Intake Total 767.64 ml Output Total 370 ml Balance 397.64 ml Exam HEENT: ET Tube in place CARDIAC: S1, S2, no added sounds or murmurs. CHEST: Diminished air entry bilaterally. ABDOMEN: Soft, nontender. No guarding or rebound. EXTREMITIES: No cyanosis, clubbing, 1+ edema. NEUROLOGIC: Unable to assess. Results/Medications Result Diagram: 12/27/16 0455 12/27/16 0455 Results 24 hrs Laboratory Tests Test 12/26/16 12:20 12/26/16 14:02 12/26/16 16:43 12/26/16 18:00 White Blood Count 13.1 H Red Blood Count 3.61 L Hemoglobin 10.7 L Hematocrit 36.7 L Mean Corpuscular Volume 101.7 H Mean Corpuscular Hemoglobin 29.6 Mean Corpuscular Hemoglobin Concent 29.2 L Red Cell Distribution Width 14.0 Platelet Count 179 Mean Platelet Volume 11.5 H Neutrophils % 57.0 Lymphocytes % 30.5 Monocytes % 4.4 Eosinophils % 1.3 Basophils % 0.2 Nucleated Red Blood Cells % 0.0 Neutrophils # 7.5 Lymphocytes # 4.0 H Monocytes # 0.6 Eosinophils # 0.2 Basophils # 0.0 Nucleated Red Blood Cells # 0.0 Prothrombin Time 14.6 H Prothrombin Time Ratio 1.1 INR International Normalized Ratio 1.14 Activated Partial Thromboplast Time 30.9 Sodium Level 143 Potassium Level 4.0 Chloride Level 104 Carbon Dioxide Level 22 Anion Gap 21 H Blood Urea Nitrogen 18 Creatinine 1.07 Glucose Level 270 H Lactic Acid Level 9.5 *H 4.6 *H 3.8 *H Calcium Level 8.1 L Phosphorus Level 7.6 H Magnesium Level 2.0 Total Bilirubin 0.3 Direct Bilirubin 0.00 Indirect Bilirubin 0.3 Aspartate Amino Transf (AST/SGOT) 71 H Alanine Aminotransferase (ALT/SGPT) 55 Alkaline Phosphatase 120 Troponin I < 0.012 Total Protein 6.0 L Albumin 3.0 L Globulin 3.00 Albumin/Globulin Ratio 1.00 Blood Gas Specimen Source Blood arterial Arterial Blood Date Drawn 12/26/2016 8:10:54 PM Arterial Blood pH (Temp corrected) 7.274 *L Arterial Blood pCO2 (Temp correct) 45.8 H Arterial Blood pO2 (Temp corrected) 70.7 L Arterial Blood HCO3 20.7 L Arterial Blood Base Excess -6.1 L Arterial Blood Oxygen Saturation 93.4 L Abdoulaye Test ACCEPTAB Arterial Blood Gas Puncture Site Right Radial Arterial Blood Carboxyhemoglobin 0.3 Arterial Blood Methemoglobin 0.2 Blood Gas A-a O2 Differential 596.5 H Oxyhemoglobin Percent 92.9 L Total Hemoglobin 13.8 Blood Gas Temperature 37.0 Blood Gas Respiration Rate 20.0 Blood Gas Actual Respiration Rate 20 Blood Gas Modality VENT - AC FiO2 100.0 Blood Gas Tidal Volume 450.0 Blood Gas Low PEEP Setting 5.0 Blood Gas Critical Value Read Back MERLY VIVAR Blood Gas Notified Whom SUSHANT Blood Gas Notified Time 12/26/2016 8:26:57 PM Test 12/26/16 18:12 12/26/16 21:10 12/26/16 21:57 12/26/16 23:05 Creatine Kinase 102 Creatine Kinase Index 4.4 Creatinine Kinase MB (Mass) 4.47 H Troponin I 0.129 *H White Blood Count 5.6 # Red Blood Count 4.16 L Hemoglobin 12.7 L Hematocrit 40.6 L Mean Corpuscular Volume 97.6 Mean Corpuscular Hemoglobin 30.5 Mean Corpuscular Hemoglobin Concent 31.3 L Red Cell Distribution Width 13.8 Platelet Count 160 Mean Platelet Volume 10.9 H Neutrophils % Segmented Neutrophils % (Manual) 65 Band Neutrophils % (Manual) 19 H Lymphocytes % (Manual) 10 L Monocytes % (Manual) 6 Eosinophils % Nucleated Red Blood Cells % 0.0 Neutrophils # Neutrophils # (Manual) 3.7 Band Neutrophils # 1.0 H Absolute Lymphocytes (Manual) 0.5 L Lymphocytes # 0.6 L Monocytes # 0.3 Absolute Monocytes (Manual) 0.3 Eosinophils # Prothrombin Time 14.3 H Prothrombin Time Ratio 1.1 INR International Normalized Ratio 1.11 Activated Partial Thromboplast Time 29.5 Fibrinogen 533.0 H Calcium Level 7.9 L Phosphorus Level 3.2 # Magnesium Level 1.7 Amylase Level 191 H Lipase 38 Thyroid Stimulating Hormone (TSH) 0.784 Bedside Glucose 158 230 H Test 12/27/16 00:00 12/27/16 00:38 12/27/16 00:51 12/27/16 02:25 Blood Gas Specimen Source Blood arterial Arterial Blood Date Drawn 12/27/2016 12:20:06 AM Arterial Blood pH (Temp corrected) 7.208 *L Arterial Blood pCO2 (Temp correct) 40.8 Arterial Blood pO2 (Temp corrected) 96.0 H Arterial Blood HCO3 15.9 L Arterial Blood Base Excess -11.4 L Arterial Blood Oxygen Saturation 96.3 Abdoulaye Test ACCEPTAB Arterial Blood Gas Puncture Site Right Radial Arterial Blood Carboxyhemoglobin 0 Arterial Blood Methemoglobin 0.2 Blood Gas A-a O2 Differential 214.6 H Oxyhemoglobin Percent 96.1 Total Hemoglobin 12.6 Blood Gas Temperature 37.0 Blood Gas Respiration Rate 20.0 Blood Gas Actual Respiration Rate 20 Blood Gas Modality VENT - AC FiO2 50.0 Blood Gas Tidal Volume 450.0 Blood Gas Low PEEP Setting 5.0 Blood Gas Inspiratory Pressure 36.0 Blood Gas Critical Value Read Back IZABELLARN Blood Gas Notified Whom BR Blood Gas Notified Time 12/27/2016 12:28:56 AM White Blood Count 3.8 #L Red Blood Count 4.25 L Hemoglobin 12.7 L Hematocrit 41.7 L Mean Corpuscular Volume 98.1 Mean Corpuscular Hemoglobin 29.9 Mean Corpuscular Hemoglobin Concent 30.5 L Red Cell Distribution Width 14.2 Platelet Count 141 Mean Platelet Volume 11.2 H Segmented Neutrophils % (Manual) 42 Band Neutrophils % (Manual) 40 H Lymphocytes % (Manual) 8 L Reactive Lymphocytes % (Manual) 1 H Monocytes % (Manual) 2 Metamyelocytes % (manual) 3 H Myelocytes % (Manual) 2 H Promyelocytes % (Manual) 2 H Neutrophils # (Manual) 1.7 Band Neutrophils # 1.5 H Absolute Lymphocytes (Manual) 0.3 L Reactive Lymphocytes # 0.0 Absolute Monocytes (Manual) 0.0 L Metamyelocytes # 0.1 H Myelocytes # 0.0 Promyelocytes # 0.0 Platelet Estimate DECREASED Giant Platelets 3 H Poikilocytosis 3+ Prothrombin Time 14.3 H Prothrombin Time Ratio 1.1 INR International Normalized Ratio 1.11 Activated Partial Thromboplast Time 27.0 Fibrinogen 533.0 H Sodium Level 146 H Potassium Level 3.4 L Chloride Level 110 Carbon Dioxide Level 22 Anion Gap 17 H Blood Urea Nitrogen 21 H Creatinine 0.63 Glucose Level 210 Calcium Level 7.9 L Phosphorus Level 3.0 Magnesium Level 1.7 Total Bilirubin 0.1 L Direct Bilirubin 0.00 Indirect Bilirubin 0.1 Aspartate Amino Transf (AST/SGOT) 68 H Alanine Aminotransferase (ALT/SGPT) 65 Alkaline Phosphatase 154 H Troponin I 0.118 Total Protein 6.6 Albumin 3.2 L Globulin 3.40 H Albumin/Globulin Ratio 0.94 Amylase Level 230 H Lipase 25 Bedside Glucose 246 H 230 H Test 12/27/16 03:22 12/27/16 03:30 12/27/16 04:32 12/27/16 04:55 Bedside Glucose 187 167 Blood Gas Specimen Source Blood arterial Arterial Blood Date Drawn 12/27/2016 3:40:58 AM Arterial Blood pH (Temp corrected) 7.292 *L Arterial Blood pCO2 (Temp correct) 40.8 Arterial Blood pO2 (Temp corrected) 75.5 L Arterial Blood HCO3 20.2 L Arterial Blood Base Excess -7.3 L Arterial Blood Oxygen Saturation 96.7 Abdoulaye Test ACCEPTAB Arterial Blood Gas Puncture Site Right Radial Arterial Blood Carboxyhemoglobin 0.1 Arterial Blood Methemoglobin 0.3 Blood Gas A-a O2 Differential 239.6 H Oxyhemoglobin Percent 96.3 Total Hemoglobin 14.3 Blood Gas Temperature 33.2 Blood Gas Respiration Rate 24.0 Blood Gas Actual Respiration Rate 24 Blood Gas Modality VENT - AC FiO2 50.0 Blood Gas Tidal Volume 450.0 Blood Gas Low PEEP Setting 5.0 Blood Gas Inspiratory Pressure 36.0 Blood Gas Critical Value Read Back Kiran MARTIN RN Blood Gas Notified Whom MG Blood Gas Notified Time 12/27/2016 3:52:52 AM White Blood Count 3.5 L Red Blood Count 4.20 L Hemoglobin 12.8 L Hematocrit 41.8 L Mean Corpuscular Volume 99.5 Mean Corpuscular Hemoglobin 30.5 Mean Corpuscular Hemoglobin Concent 30.6 L Red Cell Distribution Width 13.9 Platelet Count 146 Mean Platelet Volume 10.7 H Neutrophils % 83.1 H Segmented Neutrophils % (Manual) 34 L Band Neutrophils % (Manual) 44 H Lymphocytes % 9.7 L Lymphocytes % (Manual) 13 L Monocytes % 6.6 Monocytes % (Manual) 6 Eosinophils % 0.0 Basophils % 0.3 Metamyelocytes % (manual) 1 H Myelocytes % (Manual) 1 H Plasma Cells % (manual) 1 Nucleated Red Blood Cells % 0.0 Neutrophils # 2.9 Neutrophils # (Manual) 1.2 L Band Neutrophils # 1.5 H Absolute Lymphocytes (Manual) 0.4 L Lymphocytes # 0.3 L Monocytes # 0.2 L Absolute Monocytes (Manual) 0.2 L Eosinophils # 0.0 Basophils # 0.0 Metamyelocytes # 0.0 Myelocytes # 0.0 Plasma Cells # (manual) 0.0 Nucleated Red Blood Cells # 0.0 Platelet Estimate DECREASED Giant Platelets 5 H Platelet Morphology Comment @See below Poikilocytosis 3+ Anisocytosis 1+ Macrocytosis 1+ Ovalocytes 1+ Acanthocytes 1+ Prothrombin Time 14.5 H Prothrombin Time Ratio 1.1 INR International Normalized Ratio 1.13 Activated Partial Thromboplast Time 30.3 Fibrinogen 556.0 #H Sodium Level 146 H Potassium Level 2.7 *L Chloride Level 111 H Carbon Dioxide Level 24 Anion Gap 14 Blood Urea Nitrogen 20 Creatinine 0.68 Glucose Level 137 # Calcium Level 7.8 L Phosphorus Level 2.4 L Magnesium Level 1.6 L Total Bilirubin 0.1 L Direct Bilirubin 0.00 Indirect Bilirubin 0.1 Aspartate Amino Transf (AST/SGOT) 57 H Alanine Aminotransferase (ALT/SGPT) 65 Alkaline Phosphatase 139 H Creatine Kinase 121 Creatine Kinase Index 6.8 Creatinine Kinase MB (Mass) 8.22 H Troponin I 0.103 Total Protein 5.9 L Albumin 2.7 L Globulin 3.20 Albumin/Globulin Ratio 0.84 Amylase Level 383 #H Lipase 37 Test 12/27/16 06:00 12/27/16 06:10 12/27/16 07:14 12/27/16 08:17 Blood Gas Specimen Source Blood arterial Arterial Blood Date Drawn 12/27/2016 6:00:10 AM Arterial Blood pH (Temp corrected) 7.254 *L Arterial Blood pCO2 (Temp correct) 39.4 Arterial Blood pO2 (Temp corrected) 83.0 Arterial Blood HCO3 18.0 L Arterial Blood Base Excess -10.0 L Arterial Blood Oxygen Saturation 97.2 Abdoulaye Test ACCEPTAB Arterial Blood Gas Puncture Site Left Radial Arterial Blood Carboxyhemoglobin 0.3 Arterial Blood Methemoglobin 0.2 Blood Gas A-a O2 Differential 233.9 H Oxyhemoglobin Percent 96.7 Total Hemoglobin 14.0 Blood Gas Temperature 32.9 Blood Gas Respiration Rate 24.0 Blood Gas Actual Respiration Rate 24 Blood Gas Modality VENT - AC FiO2 50.0 Blood Gas Tidal Volume 550.0 Blood Gas Low PEEP Setting 5.0 Blood Gas Critical Value Read Back JACKSON VIVAR Blood Gas Notified Whom MA Blood Gas Notified Time 12/27/2016 6:15:41 AM Bedside Glucose 133 181 154 Test 12/27/16 09:01 12/27/16 10:54 Bedside Glucose 239 H 130 Medications Current Medications Acetaminophen (Tylenol Supp) 650 mg Q4H PRN [place] TEMP > 37C; Start 12/26/16 at 18 :00 Acetaminophen (Tylenol Liquid) 650 mg Q4H PRN PO TEMP > 37C; Start 12/26/16 at 18:00 Acetaminophen (Tylenol Supp) 500 mg Q6H [place] ; Start 12/27/16 at 18:00 Acetaminophen (Tylenol Liquid) 500 mg Q6H PO ; Start 12/27/16 at 18:00 Meperidine HCl (Demerol) 12.5 mg Q4H PRN IV POST OPERATIVE SHIVERING; Start at 18:00 Meperidine HCl (Demerol) 25 mg Q4H PRN IV POST OPERATIVE SHIVERING; Start 12/26 at 18:00 Eye Lubricant (Akwa Oint) 1 applic Q6 BOTH EYES Last administered on 12/27/16 11:44; Admin Dose 1 APPLIC; Start 12/26/16 at 18:00 Eye Lubricant 2 drop 2 drop Q6 BOTH EYES Last administered on 12/27/16 11:44; Admin Dose 2 DROP; Start 12/26/16 at 18:00 Dextrose/Sodium Chloride (D5-1/2ns) 1,000 ml @ 100 mls/hr Q10H IV Last administered on 12/27/16 10:27; Admin Dose 100 MLS/HR; Start 12/26/16 at 18:00 Atropine Sulfate 0.5 mg 0.5 mg PRN PRN IV DECREASED HEART RATE; Start 12/26/16 at 22:00 Propofol 100 ml @ 1.86 mls/hr Q12H IV Last administered on 12/26/16 23:47; Admin Dose 7.44 MLS/HR; Start 12/26/16 at 23:30 Vecuronium Frederica/Dextrose (Norcuron/D5W) 100 ml @ 3.1 mls/hr TITRATE IV ; Start 12/26/16 at 23:30 Diagnostic Test (Pha) (Accu-Chek) 1 ea Q1H XX Last administered on 12/27/16 11 :42; Admin Dose 1 EA; Start 12/26/16 at 23:30 Dextrose (D50w Syringe) 25 ml Q15M PRN IV Till BS 80 mg/dL or above x2; Start 12/26/16 at 23:30 Dextrose 50 ml 50 ml Q15M PRN IV Till BS 80 mg/dL or above x2; Start 12/26/16 at 23:30 Vancomycin HCl 250 ml @ 125 mls/hr Q24H IVPB Last administered on 12/27/16 11 :48; Admin Dose 125 MLS/HR; Start 12/27/16 at 12:00 Potassium Chloride (KCl 40 MEQ/250 ML NS) 250 ml @ 62.5 mls/hr Q4H IVPB Last administered on 12/27/16 10:39; Admin Dose 62.5 MLS/HR; Start 12/27/16 at 07:00 ; Stop 12/27/16 at 14:59 Assessment/Plan Additional Assessment/Plan IMP: 1. s/p Cardiopulmonary arrest. 2. Possible aspiration pneumonia/mucus plugging 3. Small right PTX 4. Hypoxemic respiratory failure. 5. HypoK+ PLAN: 1. Continue hypothermia protocol 2. Broad-spectrum antibiotics 3. Fluid resuscitation. 4. Serial chest x-ray and chest tube placement if needed. 5. Will need to discuss goals of care with family 6. Will reassess neuro status once off hypothermia protocol 7. Replete K+ and Mg 35 min cc time NAIDA RODRIGUEZ MD Dec 27, 2016 12:02
[2016-12-27 12:35] LABS: ABNORMAL IP MESSAGE 1; HEMATOCRIT 39.2 % (42.0-52.0); HEMOGLOBIN 12.2 g/dl (14.0-18.0); MEAN CORPUSCULAR HGB CONC 31.1 g/dl (32.0-37.0); MEAN CORPUSCULAR VOLUME 99.5 fl (82.0-101.0); MEAN PLATELET VOLUME 11.4 fl (7.4-10.4); PLATELET COUNT 151 10^3/UL (140-415); POSITIVE DIFF @See below; RED BLOOD COUNT 3.94 10^6/ul (4.70-6.10); RED CELL DISTRIBUTION WIDTH 13.9 % (11.5-14.5)
--- NOTE | 2016-12-27 12:49 | PN ---
Date/Time of Note Date/Time of Note DATE: 12/27/16 TIME: 12:48 Assessment/Plan VTE Prophylaxis VTE Prophylaxis Intervention: LMWH Lines/Catheters IV Catheter Type (from Nrs): Saline Lock Urinary Cath still in place: Yes Reason Cath still needed: urinary retention Assessment/Plan Chief Complaint/Hosp Course 89 yo male with unknown medical history preventing after PEA arrest, now with ROSC undergoing hypothermia protocol, small pneumothorax also present s/p PEA arrest: - Hypothermia protocol - Will work to obtain collateral regarding possible advanced directives, left message this AM for daughter to call me Respiratory failure: - Continue mechanical ventilation via ETT - Abx for possible pneumonia Pneumothorax: - Likely from attempted IJ CVL, serial XR 35 minutes ICU time Problems: Subjective 24 Hr Interval Summary Free Text/Dictation Continuing hypothermia protocol. Attempted to discuss [facility] marco bueno, I left her a voicemail Exam/Review of Systems Vital Signs Vitals Vital Signs Date Time Temp Pulse Resp B/P Pulse Ox O2 Delivery O2 Flow Rate FiO2 12/27/16 12:30 91.6 24 110/65 100 12/27/16 12:00 69 Mechanical Ventilator 12/27/16 08:00 50 12/26/16 11:54 15.0 Intake and Output 12/26/16 12/26/16 12/27/16 15:00 23:00 07:00 Intake Total 767.64 ml Output Total 370 ml Balance 397.64 ml Results Result Diagram: 12/27/16 1154 12/27/16 0455 Results 24 hrs Laboratory Tests Test 12/26/16 14:02 12/26/16 16:43 12/26/16 18:00 12/26/16 18:12 Lactic Acid Level 4.6 *H 3.8 *H Blood Gas Specimen Source Blood arterial Arterial Blood Date Drawn 12/26/2016 8:10:54 PM Arterial Blood pH (Temp corrected) 7.274 *L Arterial Blood pCO2 (Temp correct) 45.8 H Arterial Blood pO2 (Temp corrected) 70.7 L Arterial Blood HCO3 20.7 L Arterial Blood Base Excess -6.1 L Arterial Blood Oxygen Saturation 93.4 L Abdoulaye Test ACCEPTAB Arterial Blood Gas Puncture Site Right Radial Arterial Blood Carboxyhemoglobin 0.3 Arterial Blood Methemoglobin 0.2 Blood Gas A-a O2 Differential 596.5 H Oxyhemoglobin Percent 92.9 L Total Hemoglobin 13.8 Blood Gas Temperature 37.0 Blood Gas Respiration Rate 20.0 Blood Gas Actual Respiration Rate 20 Blood Gas Modality VENT - AC FiO2 100.0 Blood Gas Tidal Volume 450.0 Blood Gas Low PEEP Setting 5.0 Blood Gas Critical Value Read Back MERLY VIVAR Blood Gas Notified Whom SUSHANT Blood Gas Notified Time 12/26/2016 8:26:57 PM Creatine Kinase 102 Creatine Kinase Index 4.4 Creatinine Kinase MB (Mass) 4.47 H Troponin I 0.129 *H Test 12/26/16 21:10 12/26/16 21:57 12/26/16 23:05 12/27/16 00:00 White Blood Count 5.6 # Red Blood Count 4.16 L Hemoglobin 12.7 L Hematocrit 40.6 L Mean Corpuscular Volume 97.6 Mean Corpuscular Hemoglobin 30.5 Mean Corpuscular Hemoglobin Concent 31.3 L Red Cell Distribution Width 13.8 Platelet Count 160 Mean Platelet Volume 10.9 H Neutrophils % Segmented Neutrophils % (Manual) 65 Band Neutrophils % (Manual) 19 H Lymphocytes % (Manual) 10 L Monocytes % (Manual) 6 Eosinophils % Nucleated Red Blood Cells % 0.0 Neutrophils # Neutrophils # (Manual) 3.7 Band Neutrophils # 1.0 H Absolute Lymphocytes (Manual) 0.5 L Lymphocytes # 0.6 L Monocytes # 0.3 Absolute Monocytes (Manual) 0.3 Eosinophils # Prothrombin Time 14.3 H Prothrombin Time Ratio 1.1 INR International Normalized Ratio 1.11 Activated Partial Thromboplast Time 29.5 Fibrinogen 533.0 H Calcium Level 7.9 L Phosphorus Level 3.2 # Magnesium Level 1.7 Amylase Level 191 H Lipase 38 Thyroid Stimulating Hormone (TSH) 0.784 Bedside Glucose 158 230 H Blood Gas Specimen Source Blood arterial Arterial Blood Date Drawn 12/27/2016 12:20:06 AM Arterial Blood pH (Temp corrected) 7.208 *L Arterial Blood pCO2 (Temp correct) 40.8 Arterial Blood pO2 (Temp corrected) 96.0 H Arterial Blood HCO3 15.9 L Arterial Blood Base Excess -11.4 L Arterial Blood Oxygen Saturation 96.3 Abdoulaye Test ACCEPTAB Arterial Blood Gas Puncture Site Right Radial Arterial Blood Carboxyhemoglobin 0 Arterial Blood Methemoglobin 0.2 Blood Gas A-a O2 Differential 214.6 H Oxyhemoglobin Percent 96.1 Total Hemoglobin 12.6 Blood Gas Temperature 37.0 Blood Gas Respiration Rate 20.0 Blood Gas Actual Respiration Rate 20 Blood Gas Modality VENT - AC FiO2 50.0 Blood Gas Tidal Volume 450.0 Blood Gas Low PEEP Setting 5.0 Blood Gas Inspiratory Pressure 36.0 Blood Gas Critical Value Read Back CB PAREKH Blood Gas Notified Whom BR Blood Gas Notified Time 12/27/2016 12:28:56 AM Test 12/27/16 00:38 12/27/16 00:51 12/27/16 02:25 12/27/16 03:22 White Blood Count 3.8 #L Red Blood Count 4.25 L Hemoglobin 12.7 L Hematocrit 41.7 L Mean Corpuscular Volume 98.1 Mean Corpuscular Hemoglobin 29.9 Mean Corpuscular Hemoglobin Concent 30.5 L Red Cell Distribution Width 14.2 Platelet Count 141 Mean Platelet Volume 11.2 H Segmented Neutrophils % (Manual) 42 Band Neutrophils % (Manual) 40 H Lymphocytes % (Manual) 8 L Reactive Lymphocytes % (Manual) 1 H Monocytes % (Manual) 2 Metamyelocytes % (manual) 3 H Myelocytes % (Manual) 2 H Promyelocytes % (Manual) 2 H Neutrophils # (Manual) 1.7 Band Neutrophils # 1.5 H Absolute Lymphocytes (Manual) 0.3 L Reactive Lymphocytes # 0.0 Absolute Monocytes (Manual) 0.0 L Metamyelocytes # 0.1 H Myelocytes # 0.0 Promyelocytes # 0.0 Platelet Estimate DECREASED Giant Platelets 3 H Poikilocytosis 3+ Prothrombin Time 14.3 H Prothrombin Time Ratio 1.1 INR International Normalized Ratio 1.11 Activated Partial Thromboplast Time 27.0 Fibrinogen 533.0 H Sodium Level 146 H Potassium Level 3.4 L Chloride Level 110 Carbon Dioxide Level 22 Anion Gap 17 H Blood Urea Nitrogen 21 H Creatinine 0.63 Glucose Level 210 Calcium Level 7.9 L Phosphorus Level 3.0 Magnesium Level 1.7 Total Bilirubin 0.1 L Direct Bilirubin 0.00 Indirect Bilirubin 0.1 Aspartate Amino Transf (AST/SGOT) 68 H Alanine Aminotransferase (ALT/SGPT) 65 Alkaline Phosphatase 154 H Troponin I 0.118 Total Protein 6.6 Albumin 3.2 L Globulin 3.40 H Albumin/Globulin Ratio 0.94 Amylase Level 230 H Lipase 25 Bedside Glucose 246 H 230 H 187 Test 12/27/16 03:30 12/27/16 04:32 12/27/16 04:55 12/27/16 06:00 Blood Gas Specimen Source Blood arterial Blood arterial Arterial Blood Date Drawn 12/27/2016 3:40:58 AM 12/27/2016 6:00:10 AM Arterial Blood pH (Temp corrected) 7.292 *L 7.254 *L Arterial Blood pCO2 (Temp correct) 40.8 39.4 Arterial Blood pO2 (Temp corrected) 75.5 L 83.0 Arterial Blood HCO3 20.2 L 18.0 L Arterial Blood Base Excess -7.3 L -10.0 L Arterial Blood Oxygen Saturation 96.7 97.2 Abdoulaye Test ACCEPTAB ACCEPTAB Arterial Blood Gas Puncture Site Right Radial Left Radial Arterial Blood Carboxyhemoglobin 0.1 0.3 Arterial Blood Methemoglobin 0.3 0.2 Blood Gas A-a O2 Differential 239.6 H 233.9 H Oxyhemoglobin Percent 96.3 96.7 Total Hemoglobin 14.3 14.0 Blood Gas Temperature 33.2 32.9 Blood Gas Respiration Rate 24.0 24.0 Blood Gas Actual Respiration Rate 24 24 Blood Gas Modality VENT - AC VENT - AC FiO2 50.0 50.0 Blood Gas Tidal Volume 450.0 550.0 Blood Gas Low PEEP Setting 5.0 5.0 Blood Gas Inspiratory Pressure 36.0 Blood Gas Critical Value Read Back CB LUCAS RN Blood Gas Notified Whom MG MA Blood Gas Notified Time 12/27/2016 3:52:52 AM 12/27/2016 6:15:41 AM Bedside Glucose 167 White Blood Count 3.5 L Red Blood Count 4.20 L Hemoglobin 12.8 L Hematocrit 41.8 L Mean Corpuscular Volume 99.5 Mean Corpuscular Hemoglobin 30.5 Mean Corpuscular Hemoglobin Concent 30.6 L Red Cell Distribution Width 13.9 Platelet Count 146 Mean Platelet Volume 10.7 H Neutrophils % 83.1 H Segmented Neutrophils % (Manual) 34 L Band Neutrophils % (Manual) 44 H Lymphocytes % 9.7 L Lymphocytes % (Manual) 13 L Monocytes % 6.6 Monocytes % (Manual) 6 Eosinophils % 0.0 Basophils % 0.3 Metamyelocytes % (manual) 1 H Myelocytes % (Manual) 1 H Plasma Cells % (manual) 1 Nucleated Red Blood Cells % 0.0 Neutrophils # 2.9 Neutrophils # (Manual) 1.2 L Band Neutrophils # 1.5 H Absolute Lymphocytes (Manual) 0.4 L Lymphocytes # 0.3 L Monocytes # 0.2 L Absolute Monocytes (Manual) 0.2 L Eosinophils # 0.0 Basophils # 0.0 Metamyelocytes # 0.0 Myelocytes # 0.0 Plasma Cells # (manual) 0.0 Nucleated Red Blood Cells # 0.0 Platelet Estimate DECREASED Giant Platelets 5 H Platelet Morphology Comment @See below Poikilocytosis 3+ Anisocytosis 1+ Macrocytosis 1+ Ovalocytes 1+ Acanthocytes 1+ Prothrombin Time 14.5 H Prothrombin Time Ratio 1.1 INR International Normalized Ratio 1.13 Activated Partial Thromboplast Time 30.3 Fibrinogen 556.0 #H Sodium Level 146 H Potassium Level 2.7 *L Chloride Level 111 H Carbon Dioxide Level 24 Anion Gap 14 Blood Urea Nitrogen 20 Creatinine 0.68 Glucose Level 137 # Calcium Level 7.8 L Phosphorus Level 2.4 L Magnesium Level 1.6 L Total Bilirubin 0.1 L Direct Bilirubin 0.00 Indirect Bilirubin 0.1 Aspartate Amino Transf (AST/SGOT) 57 H Alanine Aminotransferase (ALT/SGPT) 65 Alkaline Phosphatase 139 H Creatine Kinase 121 Creatine Kinase Index 6.8 Creatinine Kinase MB (Mass) 8.22 H Troponin I 0.103 Total Protein 5.9 L Albumin 2.7 L Globulin 3.20 Albumin/Globulin Ratio 0.84 Amylase Level 383 #H Lipase 37 Test 12/27/16 06:10 12/27/16 07:14 12/27/16 08:17 12/27/16 09:01 Bedside Glucose 133 181 154 239 H Test 12/27/16 10:54 12/27/16 11:54 12/27/16 12:02 Bedside Glucose 130 73 White Blood Count 5.0 # Red Blood Count 3.94 L Hemoglobin 12.2 L Hematocrit 39.2 L Mean Corpuscular Volume 99.5 Mean Corpuscular Hemoglobin 31.0 Mean Corpuscular Hemoglobin Concent 31.1 L Red Cell Distribution Width 13.9 Platelet Count 151 Mean Platelet Volume 11.4 H Neutrophils % Lymphocytes % Monocytes % Eosinophils % Basophils % Nucleated Red Blood Cells % 0.0 Neutrophils # Lymphocytes # Monocytes # Eosinophils # Basophils # Nucleated Red Blood Cells # Medications Medications Current Medications Acetaminophen (Tylenol Supp) 650 mg Q4H PRN AL TEMP > 37C; Start 12/26/16 at 18 :00 Acetaminophen (Tylenol Liquid) 650 mg Q4H PRN PO TEMP > 37C; Start 12/26/16 at 18:00 Acetaminophen (Tylenol Supp) 500 mg Q6H AL ; Start 12/27/16 at 18:00 Acetaminophen (Tylenol Liquid) 500 mg Q6H PO ; Start 12/27/16 at 18:00 Meperidine HCl (Demerol) 12.5 mg Q4H PRN IV POST OPERATIVE SHIVERING; Start at 18:00 Meperidine HCl (Demerol) 25 mg Q4H PRN IV POST OPERATIVE SHIVERING; Start 12/26 at 18:00 Eye Lubricant (Akwa Oint) 1 applic Q6 BOTH EYES Last administered on 12/27/16 11:44; Admin Dose 1 APPLIC; Start 12/26/16 at 18:00 Eye Lubricant 2 drop 2 drop Q6 BOTH EYES Last administered on 12/27/16 11:44; Admin Dose 2 DROP; Start 12/26/16 at 18:00 Dextrose/Sodium Chloride (D5-1/2ns) 1,000 ml @ 100 mls/hr Q10H IV Last administered on 12/27/16 10:27; Admin Dose 100 MLS/HR; Start 12/26/16 at 18:00 Atropine Sulfate 0.5 mg 0.5 mg PRN PRN IV DECREASED HEART RATE; Start 12/26/16 at 22:00 Propofol 100 ml @ 1.86 mls/hr Q12H IV Last administered on 12/26/16 23:47; Admin Dose 7.44 MLS/HR; Start 12/26/16 at 23:30 Vecuronium Jackson/Dextrose (Norcuron/D5W) 100 ml @ 3.1 mls/hr TITRATE IV ; Start 12/26/16 at 23:30 Diagnostic Test (Pha) (Accu-Chek) 1 ea Q1H XX Last administered on 12/27/16 12 :03; Admin Dose 1 EA; Start 12/26/16 at 23:30 Dextrose (D50w Syringe) 25 ml Q15M PRN IV Till BS 80 mg/dL or above x2; Start 12/26/16 at 23:30 Dextrose 50 ml 50 ml Q15M PRN IV Till BS 80 mg/dL or above x2; Start 12/26/16 at 23:30 Vancomycin HCl 250 ml @ 125 mls/hr Q24H IVPB Last administered on 12/27/16 11 :48; Admin Dose 125 MLS/HR; Start 12/27/16 at 12:00 Potassium Chloride (KCl 40 MEQ/250 ML NS) 250 ml @ 62.5 mls/hr Q4H IVPB Last administered on 12/27/16 10:39; Admin Dose 62.5 MLS/HR; Start 12/27/16 at 07:00 ; Stop 12/27/16 at 14:59 MIGUEL ANGEL GARSIA MD Dec 27, 2016 12:49
[2016-12-27 12:59] LABS: INR 1.14; PROTIME 14.6 Sec (12.2-14.2); PT RATIO 1.1
[2016-12-27 13:00] LABS: PARTIAL THROMBOPLASTIN TIME 30.3 Sec (25.0-35.0)
[2016-12-27 13:09] LABS: AADO2 Arterial 229.4 mmHg (7.0-24.0); Allen Test ACCEPTAB; Arterial Base Excess -12.1 mmol/L (-3.0-3); Arterial COHb 0.3 % (0.0-3.0); Arterial Fraction of Oxyhgb 96.9 % (93.0-99.0); Arterial HCO3 16.3 mmol/L (22.0-26.0); Arterial MetHb 0.2 % (0.0-1.5); Arterial Total Hemglobin 13.6 g/dl (12.0-18.0); MODE VENT - AC
[2016-12-27 13:18] LABS: ALBUMIN 2.8 g/dl (3.3-4.9); ALBUMIN/GLOBULIN RATIO 0.87; BILIRUBIN,INDIRECT 0.1 mg/dl (0-1.1); BILIRUBIN,TOTAL 0.1 mg/dl (0.2-1.3); CALCIUM 7.7 mg/dl (8.4-10.2); CREATININE 0.63 mg/dl (0.61-1.24); MAGNESIUM 1.7 mg/dl (1.7-2.5); PHOSPHORUS 2.1 mg/dl (2.5-4.9); POTASSIUM 3.4 mmol/L (3.5-5.1)
[2016-12-27 13:20] LABS: CALCIUM 7.7 mg/dl (8.4-10.2); CREATININE 0.6 mg/dl (0.61-1.24); POTASSIUM 3.4 mmol/L (3.5-5.1)
[2016-12-27 13:23] LABS: ACANTHOCYTES 1+ (0-0); ANISOCYTOSIS 1+ (0-0); BURR CELLS 2+ (0-0); EOSINOPHILS % (M) 2 % (0-7); GIANT THROMBO% (M) 2 % (0-0); METAMYELOCYTES %M 3 % (0-0); MONOCYTES % (M) 9 % (0-11); MYELOCYTES % (M) 2 % (0-0); PLATELET ESTIMATE NORMAL; POIKILOCYTOSIS 3+ (0-0); REACTIVE LYMPHOCYTES% (M) 2 % (0-0)
[2016-12-27 13:28] LABS: TROPONIN-I 0.072 ng/ml (0.00-0.12)
[2016-12-27 14:22] LABS: AADO2 Arterial 229.4 mmHg (7.0-24.0); Allen Test ACCEPTAB; Arterial Base Excess -12.1 mmol/L (-3.0-3); Arterial COHb 0.3 % (0.0-3.0); Arterial Fraction of Oxyhgb 96.9 % (93.0-99.0); Arterial HCO3 16.3 mmol/L (22.0-26.0); Arterial MetHb 0.2 % (0.0-1.5); Arterial Total Hemglobin 13.6 g/dl (12.0-18.0); MODE VENT - AC
--- NOTE | 2016-12-27 15:37 | PN ---
Date/Time of Note Date/Time of Note DATE: 12/27/16 TIME: 15:35 Assessment/Plan VTE Prophylaxis VTE Prophylaxis Intervention: SCD's Lines/Catheters IV Catheter Type (from Nrs): Saline Lock Urinary Cath still in place: Yes Reason Cath still needed: urinary retention Assessment/Plan Assessment/Plan 1. cardiopulmonary arrest: appears probably related to pulm arrest 2. abnormal ECG 3. Likely anoxic brain injury 4. sepsis 5. severe lactic acidosis 6. hx dementia. 7. short P afib post arrest 8. small pneumothorax 9. hypoxemic resp failure: intubated now. Recommendations: Patient has been placed on hypothermia protocol. We will continue and complete the hypothermia protocol. IV fluid has been given. Lactate is decreasing. ICU for close monitoring. Normal EF When support respiratory care will be continued as well. Pulmonary has been already been consulted to evaluate the patient. Subjective 24 Hr Interval Summary Free Text/Dictation The patient with no cahnge Exam/Review of Systems Vital Signs Vitals Vital Signs Date Time Temp Pulse Resp B/P Pulse Ox O2 Delivery O2 Flow Rate FiO2 12/27/16 15:15 91.3 28 93/54 100 12/27/16 15:00 62 12/27/16 14:00 Mechanical Ventilator 12/27/16 13:30 50 12/26/16 11:54 15.0 Intake and Output 12/26/16 12/26/16 12/27/16 15:00 23:00 07:00 Intake Total 767.64 ml Output Total 370 ml Balance 397.64 ml Results Result Diagram: 12/27/16 1154 12/27/16 1154 Results 24 hrs Laboratory Tests Test 12/26/16 16:43 12/26/16 18:00 12/26/16 18:12 12/26/16 21:10 Lactic Acid Level 3.8 *H Blood Gas Specimen Source Blood arterial Arterial Blood Date Drawn 12/26/2016 8:10:54 PM Arterial Blood pH (Temp corrected) 7.274 *L Arterial Blood pCO2 (Temp correct) 45.8 H Arterial Blood pO2 (Temp corrected) 70.7 L Arterial Blood HCO3 20.7 L Arterial Blood Base Excess -6.1 L Arterial Blood Oxygen Saturation 93.4 L Abdoulaye Test ACCEPTAB Arterial Blood Gas Puncture Site Right Radial Arterial Blood Carboxyhemoglobin 0.3 Arterial Blood Methemoglobin 0.2 Blood Gas A-a O2 Differential 596.5 H Oxyhemoglobin Percent 92.9 L Total Hemoglobin 13.8 Blood Gas Temperature 37.0 Blood Gas Respiration Rate 20.0 Blood Gas Actual Respiration Rate 20 Blood Gas Modality VENT - AC FiO2 100.0 Blood Gas Tidal Volume 450.0 Blood Gas Low PEEP Setting 5.0 Blood Gas Critical Value Read Back MERLY VIVAR Blood Gas Notified Whom MA Blood Gas Notified Time 12/26/2016 8:26:57 PM Creatine Kinase 102 Creatine Kinase Index 4.4 Creatinine Kinase MB (Mass) 4.47 H Troponin I 0.129 *H White Blood Count 5.6 # Red Blood Count 4.16 L Hemoglobin 12.7 L Hematocrit 40.6 L Mean Corpuscular Volume 97.6 Mean Corpuscular Hemoglobin 30.5 Mean Corpuscular Hemoglobin Concent 31.3 L Red Cell Distribution Width 13.8 Platelet Count 160 Mean Platelet Volume 10.9 H Neutrophils % Segmented Neutrophils % (Manual) 65 Band Neutrophils % (Manual) 19 H Lymphocytes % (Manual) 10 L Monocytes % (Manual) 6 Eosinophils % Nucleated Red Blood Cells % 0.0 Neutrophils # Neutrophils # (Manual) 3.7 Band Neutrophils # 1.0 H Absolute Lymphocytes (Manual) 0.5 L Lymphocytes # 0.6 L Monocytes # 0.3 Absolute Monocytes (Manual) 0.3 Eosinophils # Prothrombin Time 14.3 H Prothrombin Time Ratio 1.1 INR International Normalized Ratio 1.11 Activated Partial Thromboplast Time 29.5 Fibrinogen 533.0 H Calcium Level 7.9 L Phosphorus Level 3.2 # Magnesium Level 1.7 Amylase Level 191 H Lipase 38 Thyroid Stimulating Hormone (TSH) 0.784 Test 12/26/16 21:57 12/26/16 23:05 12/27/16 00:00 12/27/16 00:38 Bedside Glucose 158 230 H Blood Gas Specimen Source Blood arterial Arterial Blood Date Drawn 12/27/2016 12:20:06 AM Arterial Blood pH (Temp corrected) 7.208 *L Arterial Blood pCO2 (Temp correct) 40.8 Arterial Blood pO2 (Temp corrected) 96.0 H Arterial Blood HCO3 15.9 L Arterial Blood Base Excess -11.4 L Arterial Blood Oxygen Saturation 96.3 Abdoulaye Test ACCEPTAB Arterial Blood Gas Puncture Site Right Radial Arterial Blood Carboxyhemoglobin 0 Arterial Blood Methemoglobin 0.2 Blood Gas A-a O2 Differential 214.6 H Oxyhemoglobin Percent 96.1 Total Hemoglobin 12.6 Blood Gas Temperature 37.0 Blood Gas Respiration Rate 20.0 Blood Gas Actual Respiration Rate 20 Blood Gas Modality VENT - AC FiO2 50.0 Blood Gas Tidal Volume 450.0 Blood Gas Low PEEP Setting 5.0 Blood Gas Inspiratory Pressure 36.0 Blood Gas Critical Value Read Back CB PAREKH Blood Gas Notified Whom BR Blood Gas Notified Time 12/27/2016 12:28:56 AM White Blood Count 3.8 #L Red Blood Count 4.25 L Hemoglobin 12.7 L Hematocrit 41.7 L Mean Corpuscular Volume 98.1 Mean Corpuscular Hemoglobin 29.9 Mean Corpuscular Hemoglobin Concent 30.5 L Red Cell Distribution Width 14.2 Platelet Count 141 Mean Platelet Volume 11.2 H Segmented Neutrophils % (Manual) 42 Band Neutrophils % (Manual) 40 H Lymphocytes % (Manual) 8 L Reactive Lymphocytes % (Manual) 1 H Monocytes % (Manual) 2 Metamyelocytes % (manual) 3 H Myelocytes % (Manual) 2 H Promyelocytes % (Manual) 2 H Neutrophils # (Manual) 1.7 Band Neutrophils # 1.5 H Absolute Lymphocytes (Manual) 0.3 L Reactive Lymphocytes # 0.0 Absolute Monocytes (Manual) 0.0 L Metamyelocytes # 0.1 H Myelocytes # 0.0 Promyelocytes # 0.0 Platelet Estimate DECREASED Giant Platelets 3 H Poikilocytosis 3+ Prothrombin Time 14.3 H Prothrombin Time Ratio 1.1 INR International Normalized Ratio 1.11 Activated Partial Thromboplast Time 27.0 Fibrinogen 533.0 H Sodium Level 146 H Potassium Level 3.4 L Chloride Level 110 Carbon Dioxide Level 22 Anion Gap 17 H Blood Urea Nitrogen 21 H Creatinine 0.63 Glucose Level 210 Calcium Level 7.9 L Phosphorus Level 3.0 Magnesium Level 1.7 Total Bilirubin 0.1 L Direct Bilirubin 0.00 Indirect Bilirubin 0.1 Aspartate Amino Transf (AST/SGOT) 68 H Alanine Aminotransferase (ALT/SGPT) 65 Alkaline Phosphatase 154 H Troponin I 0.118 Total Protein 6.6 Albumin 3.2 L Globulin 3.40 H Albumin/Globulin Ratio 0.94 Amylase Level 230 H Lipase 25 Test 12/27/16 00:51 12/27/16 02:25 12/27/16 03:22 12/27/16 03:30 Bedside Glucose 246 H 230 H 187 Blood Gas Specimen Source Blood arterial Arterial Blood Date Drawn 12/27/2016 3:40:58 AM Arterial Blood pH (Temp corrected) 7.292 *L Arterial Blood pCO2 (Temp correct) 40.8 Arterial Blood pO2 (Temp corrected) 75.5 L Arterial Blood HCO3 20.2 L Arterial Blood Base Excess -7.3 L Arterial Blood Oxygen Saturation 96.7 Abdoulaye Test ACCEPTAB Arterial Blood Gas Puncture Site Right Radial Arterial Blood Carboxyhemoglobin 0.1 Arterial Blood Methemoglobin 0.3 Blood Gas A-a O2 Differential 239.6 H Oxyhemoglobin Percent 96.3 Total Hemoglobin 14.3 Blood Gas Temperature 33.2 Blood Gas Respiration Rate 24.0 Blood Gas Actual Respiration Rate 24 Blood Gas Modality VENT - AC FiO2 50.0 Blood Gas Tidal Volume 450.0 Blood Gas Low PEEP Setting 5.0 Blood Gas Inspiratory Pressure 36.0 Blood Gas Critical Value Read Back Kiran MARTIN RN Blood Gas Notified Whom MG Blood Gas Notified Time 12/27/2016 3:52:52 AM Test 12/27/16 04:32 12/27/16 04:55 12/27/16 06:00 12/27/16 06:10 Bedside Glucose 167 133 White Blood Count 3.5 L Red Blood Count 4.20 L Hemoglobin 12.8 L Hematocrit 41.8 L Mean Corpuscular Volume 99.5 Mean Corpuscular Hemoglobin 30.5 Mean Corpuscular Hemoglobin Concent 30.6 L Red Cell Distribution Width 13.9 Platelet Count 146 Mean Platelet Volume 10.7 H Neutrophils % 83.1 H Segmented Neutrophils % (Manual) 34 L Band Neutrophils % (Manual) 44 H Lymphocytes % 9.7 L Lymphocytes % (Manual) 13 L Monocytes % 6.6 Monocytes % (Manual) 6 Eosinophils % 0.0 Basophils % 0.3 Metamyelocytes % (manual) 1 H Myelocytes % (Manual) 1 H Plasma Cells % (manual) 1 Nucleated Red Blood Cells % 0.0 Neutrophils # 2.9 Neutrophils # (Manual) 1.2 L Band Neutrophils # 1.5 H Absolute Lymphocytes (Manual) 0.4 L Lymphocytes # 0.3 L Monocytes # 0.2 L Absolute Monocytes (Manual) 0.2 L Eosinophils # 0.0 Basophils # 0.0 Metamyelocytes # 0.0 Myelocytes # 0.0 Plasma Cells # (manual) 0.0 Nucleated Red Blood Cells # 0.0 Platelet Estimate DECREASED Giant Platelets 5 H Platelet Morphology Comment @See below Poikilocytosis 3+ Anisocytosis 1+ Macrocytosis 1+ Ovalocytes 1+ Acanthocytes 1+ Prothrombin Time 14.5 H Prothrombin Time Ratio 1.1 INR International Normalized Ratio 1.13 Activated Partial Thromboplast Time 30.3 Fibrinogen 556.0 #H Sodium Level 146 H Potassium Level 2.7 *L Chloride Level 111 H Carbon Dioxide Level 24 Anion Gap 14 Blood Urea Nitrogen 20 Creatinine 0.68 Glucose Level 137 # Calcium Level 7.8 L Phosphorus Level 2.4 L Magnesium Level 1.6 L Total Bilirubin 0.1 L Direct Bilirubin 0.00 Indirect Bilirubin 0.1 Aspartate Amino Transf (AST/SGOT) 57 H Alanine Aminotransferase (ALT/SGPT) 65 Alkaline Phosphatase 139 H Creatine Kinase 121 Creatine Kinase Index 6.8 Creatinine Kinase MB (Mass) 8.22 H Troponin I 0.103 Total Protein 5.9 L Albumin 2.7 L Globulin 3.20 Albumin/Globulin Ratio 0.84 Amylase Level 383 #H Lipase 37 Blood Gas Specimen Source Blood arterial Arterial Blood Date Drawn 12/27/2016 6:00:10 AM Arterial Blood pH (Temp corrected) 7.254 *L Arterial Blood pCO2 (Temp correct) 39.4 Arterial Blood pO2 (Temp corrected) 83.0 Arterial Blood HCO3 18.0 L Arterial Blood Base Excess -10.0 L Arterial Blood Oxygen Saturation 97.2 Abdoulaye Test ACCEPTAB Arterial Blood Gas Puncture Site Left Radial Arterial Blood Carboxyhemoglobin 0.3 Arterial Blood Methemoglobin 0.2 Blood Gas A-a O2 Differential 233.9 H Oxyhemoglobin Percent 96.7 Total Hemoglobin 14.0 Blood Gas Temperature 32.9 Blood Gas Respiration Rate 24.0 Blood Gas Actual Respiration Rate 24 Blood Gas Modality VENT - AC FiO2 50.0 Blood Gas Tidal Volume 550.0 Blood Gas Low PEEP Setting 5.0 Blood Gas Critical Value Read Back JACKSON VIVAR Blood Gas Notified Whom SUSHANT Blood Gas Notified Time 12/27/2016 6:15:41 AM Test 12/27/16 07:14 12/27/16 08:17 12/27/16 09:01 12/27/16 10:54 Bedside Glucose 181 154 239 H 130 Test 12/27/16 11:54 12/27/16 12:00 12/27/16 12:02 12/27/16 12:48 White Blood Count 5.0 # Red Blood Count 3.94 L Hemoglobin 12.2 L Hematocrit 39.2 L Mean Corpuscular Volume 99.5 Mean Corpuscular Hemoglobin 31.0 Mean Corpuscular Hemoglobin Concent 31.1 L Red Cell Distribution Width 13.9 Platelet Count 151 Mean Platelet Volume 11.4 H Neutrophils % Segmented Neutrophils % (Manual) 42 Band Neutrophils % (Manual) 35 H Lymphocytes % Lymphocytes % (Manual) 5 L Reactive Lymphocytes % (Manual) 2 H Monocytes % Monocytes % (Manual) 9 Eosinophils % Eosinophils % (Manual) 2 Basophils % Metamyelocytes % (manual) 3 H Myelocytes % (Manual) 2 H Nucleated Red Blood Cells % 0.0 Neutrophils # Neutrophils # (Manual) 2.2 Band Neutrophils # 1.7 H Absolute Lymphocytes (Manual) 0.2 L Lymphocytes # Reactive Lymphocytes # 0.1 H Monocytes # Absolute Monocytes (Manual) 0.4 Eosinophils # Basophils # Metamyelocytes # 0.1 H Myelocytes # 0.1 H Nucleated Red Blood Cells # Platelet Estimate NORMAL Giant Platelets 2 H Poikilocytosis 3+ Anisocytosis 1+ Macrocytosis 1+ Acanthocytes 1+ Prothrombin Time 14.6 H Prothrombin Time Ratio 1.1 INR International Normalized Ratio 1.14 Activated Partial Thromboplast Time 30.3 Fibrinogen 527.0 #H Sodium Level 144 Potassium Level 3.4 L Chloride Level 113 H Carbon Dioxide Level 17 L Anion Gap 17 H Blood Urea Nitrogen 19 Creatinine 0.60 L Glucose Level 118 Calcium Level 7.7 L Phosphorus Level 2.1 L Magnesium Level 1.7 Total Bilirubin 0.1 L Direct Bilirubin 0.00 Indirect Bilirubin 0.1 Aspartate Amino Transf (AST/SGOT) 51 H Alanine Aminotransferase (ALT/SGPT) 57 Alkaline Phosphatase 127 H Troponin I 0.072 Total Protein 6.0 L Albumin 2.8 L Globulin 3.20 Albumin/Globulin Ratio 0.87 Amylase Level 472 H Lipase 21 L Blood Gas Specimen Source Blood arterial Arterial Blood Date Drawn 12/27/2016 1:00:00 PM Arterial Blood pH (Temp corrected) 7.215 *L Arterial Blood pCO2 (Temp correct) 39.2 Arterial Blood pO2 (Temp corrected) 87.7 Arterial Blood HCO3 16.3 L Arterial Blood Base Excess -12.1 L Arterial Blood Oxygen Saturation 97.4 Abdoulaye Test ACCEPTAB Arterial Blood Gas Puncture Site Right Radial Arterial Blood Carboxyhemoglobin 0.3 Arterial Blood Methemoglobin 0.2 Blood Gas A-a O2 Differential 229.4 H Oxyhemoglobin Percent 96.9 Total Hemoglobin 13.6 Blood Gas Temperature 33.0 Blood Gas Respiration Rate 24.0 Blood Gas Actual Respiration Rate 24 Blood Gas Modality VENT - AC FiO2 50.0 Blood Gas Tidal Volume 450.0 Blood Gas Low PEEP Setting 5.0 Blood Gas Critical Value Read Back DR. RODRIGUEZ Blood Gas Notified Whom RT Blood Gas Notified Time 12/27/2016 1:09:00 PM Bedside Glucose 73 147 Test 12/27/16 13:58 Bedside Glucose 119 Medications Medications Current Medications Acetaminophen (Tylenol Supp) 650 mg Q4H PRN [place] TEMP > 37C; Start 12/26/16 at 18 :00 Acetaminophen (Tylenol Liquid) 650 mg Q4H PRN PO TEMP > 37C; Start 12/26/16 at 18:00 Acetaminophen (Tylenol Supp) 500 mg Q6H NH ; Start 12/27/16 at 18:00 Acetaminophen (Tylenol Liquid) 500 mg Q6H PO ; Start 12/27/16 at 18:00 Meperidine HCl (Demerol) 12.5 mg Q4H PRN IV POST OPERATIVE SHIVERING; Start at 18:00 Meperidine HCl (Demerol) 25 mg Q4H PRN IV POST OPERATIVE SHIVERING; Start 12/26 at 18:00 Eye Lubricant (Akwa Oint) 1 applic Q6 BOTH EYES Last administered on 12/27/16 11:44; Admin Dose 1 APPLIC; Start 12/26/16 at 18:00 Eye Lubricant 2 drop 2 drop Q6 BOTH EYES Last administered on 12/27/16 11:44; Admin Dose 2 DROP; Start 12/26/16 at 18:00 Dextrose/Sodium Chloride (D5-1/2ns) 1,000 ml @ 100 mls/hr Q10H IV Last administered on 12/27/16 10:27; Admin Dose 100 MLS/HR; Start 12/26/16 at 18:00 Atropine Sulfate (Atropine (Syringe)) 0.5 mg PRN PRN IV DECREASED HEART RATE; Start 12/26/16 at 22:00 Diagnostic Test (Pha) (Accu-Chek) 1 ea Q1H XX Last administered on 12/27/16 14 :43; Admin Dose 1 EA; Start 12/26/16 at 23:30 Dextrose (D50w Syringe) 25 ml Q15M PRN IV Till BS 80 mg/dL or above x2; Start 12/26/16 at 23:30 Dextrose 50 ml 50 ml Q15M PRN IV Till BS 80 mg/dL or above x2; Start 12/26/16 at 23:30 Vancomycin HCl 250 ml @ 125 mls/hr Q24H IVPB Last administered on 12/27/16 11 :48; Admin Dose 125 MLS/HR; Start 12/27/16 at 12:00 Propofol 100 ml @ 1.86 mls/hr Q12H IV ; Start 12/27/16 at 23:30 Vecuronium Shaniko/Dextrose (Norcuron/D5W) 100 ml @ 3.1 mls/hr TITRATE IV Last administered on 12/27/16 15:31; Admin Dose 0.62 MLS/HR; Start 12/27/16 at 14:30 WANDA OLVERA MD Dec 27, 2016 15:37
[2016-12-27 17:46] LABS: ABNORMAL IP MESSAGE 1; HEMATOCRIT 37.1 % (42.0-52.0); HEMOGLOBIN 11.8 g/dl (14.0-18.0); MEAN CORPUSCULAR HEMOGLOBIN 30.8 pg (29.0-33.0); MEAN CORPUSCULAR HGB CONC 31.8 g/dl (32.0-37.0); MEAN CORPUSCULAR VOLUME 96.9 fl (82.0-101.0); MEAN PLATELET VOLUME 10.9 fl (7.4-10.4); PLATELET COUNT 148 10^3/UL (140-415); POSITIVE DIFF @See below; RED BLOOD COUNT 3.83 10^6/ul (4.70-6.10); WHITE BLOOD COUNT 4.8 10^3/ul (4.8-10.8)
[2016-12-27] MEDS: ACETAMINOPHEN 650 MG SUPP PR SCH (17:56)
[2016-12-27] MEDS: ACETAMINOPHEN 650MG/20.3ML CUP PO SCH (17:59)
[2016-12-27 18:03] LABS: INR 1.24; PROTIME 15.7 Sec (12.2-14.2); PT RATIO 1.2
[2016-12-27 18:04] LABS: ALBUMIN 2.7 g/dl (3.3-4.9); ALBUMIN/GLOBULIN RATIO 0.87; BILIRUBIN,INDIRECT 0.1 mg/dl (0-1.1); BILIRUBIN,TOTAL 0.1 mg/dl (0.2-1.3); CALCIUM 7.4 mg/dl (8.4-10.2); CREATININE 0.58 mg/dl (0.61-1.24); MAGNESIUM 1.6 mg/dl (1.7-2.5); PARTIAL THROMBOPLASTIN TIME 32.2 Sec (25.0-35.0); PHOSPHORUS 2.2 mg/dl (2.5-4.9); POTASSIUM 3.4 mmol/L (3.5-5.1); TOTAL PROTEIN 5.8 g/dl (6.1-8.1)
[2016-12-27 18:16] LABS: TROPONIN-I 0.063 ng/ml (0.00-0.12)
[2016-12-27 18:21] LABS: ANISOCYTOSIS 1+ (0-0); BURR CELLS 2+ (0-0); METAMYELOCYTES %M 5 % (0-0); MONOCYTES % (M) 15 % (0-11); PLATELET ESTIMATE NORMAL; POIKILOCYTOSIS 2+ (0-0); POLYCHROMASIA 1+ (0-0)
[2016-12-27] MEDS ORDERED: PROPOFOL 100 ML ONE (18:29)
[2016-12-27] MEDS ORDERED: LORAZEPAM 2 MG INJ ONE (23:50)
[2016-12-28] VITALS (58 sets, daily range): BP systolic 84–109; BP diastolic 52–70; PULSE 75–89; RESP 25–30
[2016-12-28] MEDS ORDERED: LORAZEPAM 2 MG INJ IV ONE
[2016-12-28] MEDS: ACCU-CHEK XX SCH ×9 (00:30→09:04)
[2016-12-28 01:17] LABS: ABNORMAL IP MESSAGE 1; BASOPHILS % 0.2 % (0.0-2.0); HEMATOCRIT 34.5 % (42.0-52.0); HEMOGLOBIN 10.9 g/dl (14.0-18.0); LYMPHOCYTES # 0.4 10^3/ul (0.8-2.9); LYMPHOCYTES % 9.8 % (15.0-51.0); MEAN CORPUSCULAR HEMOGLOBIN 30.8 pg (29.0-33.0); MEAN CORPUSCULAR HGB CONC 31.6 g/dl (32.0-37.0); MEAN CORPUSCULAR VOLUME 97.5 fl (82.0-101.0); MEAN PLATELET VOLUME 11.5 fl (7.4-10.4); MONOCYTE # 0.5 10^3/ul (0.3-0.9); NEUTROPHIL # 3.4 10^3/ul (1.6-7.5); NEUTROPHILS % 78.8 % (39.0-77.0); PLATELET COUNT 142 10^3/UL (140-415); POSITIVE DIFF @See below; RED BLOOD COUNT 3.54 10^6/ul (4.70-6.10); RED CELL DISTRIBUTION WIDTH 14.1 % (11.5-14.5); WHITE BLOOD COUNT 4.3 10^3/ul (4.8-10.8)
[2016-12-28] MEDS: ARTIFICIAL TEARS 15 ML OPH BOTH EYES SCH ×4 (01:33→17:50)
[2016-12-28 01:34] LABS: INR 1.38; PARTIAL THROMBOPLASTIN TIME 31.4 Sec (25.0-35.0); PT RATIO 1.3
[2016-12-28] MEDS: OCULAR LUBRICANT 3.5 GM OPH OINT BOTH EYES SCH ×4 (01:34→17:51)
[2016-12-28] MEDS: INSULIN HUMAN REGULAR 100 UNIT in SOD CHLORIDE 0.9% 99 ML IV SCH (01:35)
[2016-12-28 01:38] LABS: ALBUMIN 2.4 g/dl (3.3-4.9); ALBUMIN/GLOBULIN RATIO 0.75; CALCIUM 7.5 mg/dl (8.4-10.2); CREATININE 0.59 mg/dl (0.61-1.24); MAGNESIUM 1.6 mg/dl (1.7-2.5); PHOSPHORUS 3.1 mg/dl (2.5-4.9); TOTAL PROTEIN 5.6 g/dl (6.1-8.1)
[2016-12-28 01:48] LABS: TROPONIN-I 0.061 ng/ml (0.00-0.12)
[2016-12-28 02:30] LABS: AADO2 Arterial 196.7 mmHg (7.0-24.0); Allen Test ACCEPTAB; Arterial Base Excess -4.9 mmol/L (-3.0-3); Arterial COHb 0.3 % (0.0-3.0); Arterial Fraction of Oxyhgb 97.9 % (93.0-99.0); Arterial HCO3 20.4 mmol/L (22.0-26.0); Arterial MetHb 0.2 % (0.0-1.5); Arterial Total Hemglobin 13.1 g/dl (12.0-18.0); MODE VENT - AC
[2016-12-28] MEDS ORDERED: MAGNESIUM SULFATE 2 GM/50 ML 50 ML IVPB ONE (03:30)
[2016-12-28 04:30] LABS: ABNORMAL IP MESSAGE 1; HEMATOCRIT 33.1 % (42.0-52.0); HEMOGLOBIN 10.7 g/dl (14.0-18.0); MEAN CORPUSCULAR HEMOGLOBIN 30.7 pg (29.0-33.0); MEAN CORPUSCULAR HGB CONC 32.3 g/dl (32.0-37.0); MEAN CORPUSCULAR VOLUME 94.8 fl (82.0-101.0); MEAN PLATELET VOLUME 11.4 fl (7.4-10.4); PLATELET COUNT 143 10^3/UL (140-415); POSITIVE DIFF @See below; RED BLOOD COUNT 3.49 10^6/ul (4.70-6.10); RED CELL DISTRIBUTION WIDTH 14.1 % (11.5-14.5); WHITE BLOOD COUNT 5.9 10^3/ul (4.8-10.8)
[2016-12-28 04:47] LABS: INR 1.37; PARTIAL THROMBOPLASTIN TIME 33.1 Sec (25.0-35.0); PROTIME 16.9 Sec (12.2-14.2); PT RATIO 1.3
[2016-12-28 04:56] LABS: ALBUMIN 2.3 g/dl (3.3-4.9); ALBUMIN/GLOBULIN RATIO 0.71; CALCIUM 7.5 mg/dl (8.4-10.2); CREATININE 0.64 mg/dl (0.61-1.24); MAGNESIUM 1.6 mg/dl (1.7-2.5); PHOSPHORUS 2.8 mg/dl (2.5-4.9); POTASSIUM 4.1 mmol/L (3.5-5.1); TOTAL PROTEIN 5.5 g/dl (6.1-8.1)
[2016-12-28 05:06] LABS: TROPONIN-I 0.056 ng/ml (0.00-0.12)
[2016-12-28] MEDS: ACETAMINOPHEN 650 MG SUPP PR SCH ×4 (06:00→17:51)
[2016-12-28] MEDS: ACETAMINOPHEN 650MG/20.3ML CUP PO SCH ×4 (06:00→17:51)
[2016-12-28 08:43] LABS: ANISOCYTOSIS 1+ (0-0); EOSINOPHILS % (M) 1 % (0-7); GIANT THROMBO% (M) 5 % (0-0); MONOCYTES % (M) 14 % (0-11); PLATELET ESTIMATE NORMAL; POIKILOCYTOSIS 2+ (0-0); REACTIVE LYMPHOCYTES% (M) 2 % (0-0)
[2016-12-28 08:44] LABS: AADO2 Arterial 191.5 mmHg (7.0-24.0); Allen Test ACCEPTAB; Arterial Base Excess -2.7 mmol/L (-3.0-3); Arterial COHb 0.3 % (0.0-3.0); Arterial Fraction of Oxyhgb 97.8 % (93.0-99.0); Arterial HCO3 21.1 mmol/L (22.0-26.0); Arterial MetHb 0.2 % (0.0-1.5); MODE VENT - AC
[2016-12-28] MEDS: DEXTROSE 5%-0.45% NACL 1,000 ML IV SCH ×2 (09:04→21:42)
--- NOTE | 2016-12-28 09:53 | RADRPT ---
PROCEDURE: XR Chest. CLINICAL INDICATION: Shortness of breath. TECHNIQUE: Single frontal view. COMPARISON: 12/27/2016. FINDINGS: The endotracheal tube and nasogastric tube remain in satisfactory position. There is mild atelectasi s at the lung bases, unchanged. The lungs are otherwise clear. The heart size is normal. There is calcification in the aorta consistent with atherosclerosis. There is no pleural effusion. There is no pneumothorax. IMPRESSION: 1. Endotracheal tube and nasogastric tube in satisfactory position. 2. Mild atelectasis at the lung bases. 3. Atherosclerosis. 4. Otherwise unremarkable chest radiograph. RPTAT: QQ .Cole Calloway MD, MD Date Time Electronically viewed and signed by .Cole Calloway MD, on 12/28/2016 09:53 .R/
--- NOTE | 2016-12-28 11:11 | CONS ---
Date/Time of Note Date/Time of Note DATE: 12/28/16 TIME: 11:08 Consult Date/Type/Reason Admit Date/Time Dec 26, 2016 at 12:45 Initial Consult Date 12/26/16 Type of Consultation: Pulm/CCM Ordering Provider: MAJOR ROBIN MD Subjective Off cooling protocol. Now with evidence of myoclonic jerks, particularly in his face. Objective Vital Signs Date Time Temp Pulse Resp B/P Pulse Ox O2 Delivery O2 Flow Rate FiO2 12/28/16 09:20 85 29 100 50 12/28/16 06:30 93/61 12/28/16 06:00 97.5 Mechanical Ventilator 12/26/16 11:54 15.0 Intake and Output 12/27/16 12/27/16 12/28/16 15:00 23:00 07:00 Intake Total 1547.542 ml 730.22 ml 783.90 ml Output Total 305 ml 270 ml 260 ml Balance 1242.542 ml 460.22 ml 523.90 ml Exam HEENT: ET Tube in place CARDIAC: S1, S2, no added sounds or murmurs. CHEST: Diminished air entry bilaterally. ABDOMEN: Soft, nontender. No guarding or rebound. EXTREMITIES: No cyanosis, clubbing, 1+ edema. NEUROLOGIC: Unresponsive, + myoclonic movements; reduced tone Results/Medications Result Diagram: 12/28/16 0400 12/28/16 0400 Results 24 hrs Laboratory Tests Test 12/27/16 11:54 12/27/16 12:00 12/27/16 12:02 12/27/16 12:48 White Blood Count 5.0 # Red Blood Count 3.94 L Hemoglobin 12.2 L Hematocrit 39.2 L Mean Corpuscular Volume 99.5 Mean Corpuscular Hemoglobin 31.0 Mean Corpuscular Hemoglobin Concent 31.1 L Red Cell Distribution Width 13.9 Platelet Count 151 Mean Platelet Volume 11.4 H Neutrophils % Segmented Neutrophils % (Manual) 42 Band Neutrophils % (Manual) 35 H Lymphocytes % Lymphocytes % (Manual) 5 L Reactive Lymphocytes % (Manual) 2 H Monocytes % Monocytes % (Manual) 9 Eosinophils % Eosinophils % (Manual) 2 Basophils % Metamyelocytes % (manual) 3 H Myelocytes % (Manual) 2 H Nucleated Red Blood Cells % 0.0 Neutrophils # Neutrophils # (Manual) 2.2 Band Neutrophils # 1.7 H Absolute Lymphocytes (Manual) 0.2 L Lymphocytes # Reactive Lymphocytes # 0.1 H Monocytes # Absolute Monocytes (Manual) 0.4 Eosinophils # Basophils # Metamyelocytes # 0.1 H Myelocytes # 0.1 H Nucleated Red Blood Cells # Platelet Estimate NORMAL Giant Platelets 2 H Poikilocytosis 3+ Anisocytosis 1+ Macrocytosis 1+ Acanthocytes 1+ Prothrombin Time 14.6 H Prothrombin Time Ratio 1.1 INR International Normalized Ratio 1.14 Activated Partial Thromboplast Time 30.3 Fibrinogen 527.0 #H Sodium Level 144 Potassium Level 3.4 L Chloride Level 113 H Carbon Dioxide Level 17 L Anion Gap 17 H Blood Urea Nitrogen 19 Creatinine 0.60 L Glucose Level 118 Calcium Level 7.7 L Phosphorus Level 2.1 L Magnesium Level 1.7 Total Bilirubin 0.1 L Direct Bilirubin 0.00 Indirect Bilirubin 0.1 Aspartate Amino Transf (AST/SGOT) 51 H Alanine Aminotransferase (ALT/SGPT) 57 Alkaline Phosphatase 127 H Troponin I 0.072 Total Protein 6.0 L Albumin 2.8 L Globulin 3.20 Albumin/Globulin Ratio 0.87 Amylase Level 472 H Lipase 21 L Blood Gas Specimen Source Blood arterial Arterial Blood Date Drawn 12/27/2016 1:00:00 PM Arterial Blood pH (Temp corrected) 7.215 *L Arterial Blood pCO2 (Temp correct) 39.2 Arterial Blood pO2 (Temp corrected) 87.7 Arterial Blood HCO3 16.3 L Arterial Blood Base Excess -12.1 L Arterial Blood Oxygen Saturation 97.4 Abdoulaye Test ACCEPTAB Arterial Blood Gas Puncture Site Right Radial Arterial Blood Carboxyhemoglobin 0.3 Arterial Blood Methemoglobin 0.2 Blood Gas A-a O2 Differential 229.4 H Oxyhemoglobin Percent 96.9 Total Hemoglobin 13.6 Blood Gas Temperature 33.0 Blood Gas Respiration Rate 24.0 Blood Gas Actual Respiration Rate 24 Blood Gas Modality VENT - AC FiO2 50.0 Blood Gas Tidal Volume 450.0 Blood Gas Low PEEP Setting 5.0 Blood Gas Critical Value Read Back DR. RODRIGUEZ Blood Gas Notified Whom RT Blood Gas Notified Time 12/27/2016 1:09:00 PM Bedside Glucose 73 147 Test 12/27/16 13:58 12/27/16 15:06 12/27/16 16:11 12/27/16 16:49 Bedside Glucose 119 80 72 78 Test 12/27/16 17:30 12/27/16 18:35 12/27/16 18:52 12/27/16 19:53 White Blood Count 4.8 Red Blood Count 3.83 L Hemoglobin 11.8 L Hematocrit 37.1 L Mean Corpuscular Volume 96.9 Mean Corpuscular Hemoglobin 30.8 Mean Corpuscular Hemoglobin Concent 31.8 L Red Cell Distribution Width 14.0 Platelet Count 148 Mean Platelet Volume 10.9 H Neutrophils % Segmented Neutrophils % (Manual) 39 Band Neutrophils % (Manual) 25 H Lymphocytes % Lymphocytes % (Manual) 16 Monocytes % Monocytes % (Manual) 15 H Eosinophils % Basophils % Metamyelocytes % (manual) 5 H Nucleated Red Blood Cells % 0.0 Neutrophils # Neutrophils # (Manual) 1.9 Band Neutrophils # 1.2 H Absolute Lymphocytes (Manual) 0.7 L Lymphocytes # Monocytes # Absolute Monocytes (Manual) 0.7 Eosinophils # Basophils # Metamyelocytes # 0.2 H Nucleated Red Blood Cells # Platelet Estimate NORMAL Polychromasia 1+ Poikilocytosis 2+ Anisocytosis 1+ Macrocytosis 1+ Prothrombin Time 15.7 H Prothrombin Time Ratio 1.2 INR International Normalized Ratio 1.24 Activated Partial Thromboplast Time 32.2 Fibrinogen 538.0 H Sodium Level 144 Potassium Level 3.4 L Chloride Level 113 H Carbon Dioxide Level 18 L Anion Gap 16 Blood Urea Nitrogen 21 H Creatinine 0.58 L Glucose Level 75 # Calcium Level 7.4 L Phosphorus Level 2.2 L Magnesium Level 1.6 L Total Bilirubin 0.1 L Direct Bilirubin 0.00 Indirect Bilirubin 0.1 Aspartate Amino Transf (AST/SGOT) 40 Alanine Aminotransferase (ALT/SGPT) 52 Alkaline Phosphatase 125 H Troponin I 0.063 Total Protein 5.8 L Albumin 2.7 L Globulin 3.10 Albumin/Globulin Ratio 0.87 Amylase Level 565 H Lipase 19 L Bedside Glucose 72 82 88 Test 12/27/16 21:02 12/27/16 22:16 12/27/16 23:10 12/27/16 23:56 Bedside Glucose 134 133 153 117 Test 12/28/16 00:19 12/28/16 00:38 12/28/16 01:07 12/28/16 02:04 White Blood Count 4.3 L Red Blood Count 3.54 L Hemoglobin 10.9 L Hematocrit 34.5 L Mean Corpuscular Volume 97.5 Mean Corpuscular Hemoglobin 30.8 Mean Corpuscular Hemoglobin Concent 31.6 L Red Cell Distribution Width 14.1 Platelet Count 142 Mean Platelet Volume 11.5 H Neutrophils % 78.8 H Lymphocytes % 9.8 L Monocytes % 11.0 Eosinophils % 0.0 Basophils % 0.2 Nucleated Red Blood Cells % 0.0 Neutrophils # 3.4 Lymphocytes # 0.4 L Monocytes # 0.5 Eosinophils # 0.0 Basophils # 0.0 Nucleated Red Blood Cells # 0.0 Prothrombin Time 17.0 H Prothrombin Time Ratio 1.3 INR International Normalized Ratio 1.38 Activated Partial Thromboplast Time 31.4 Fibrinogen 431.0 # Sodium Level 141 Potassium Level 4.0 Chloride Level 111 H Carbon Dioxide Level 22 Anion Gap 12 Blood Urea Nitrogen 25 H Creatinine 0.59 L Glucose Level 126 # Calcium Level 7.5 L Phosphorus Level 3.1 Magnesium Level 1.6 L Total Bilirubin 0.0 L Direct Bilirubin 0.00 Indirect Bilirubin 0.0 Aspartate Amino Transf (AST/SGOT) 39 Alanine Aminotransferase (ALT/SGPT) 49 Alkaline Phosphatase 100 Troponin I 0.061 Total Protein 5.6 L Albumin 2.4 L Globulin 3.20 Albumin/Globulin Ratio 0.75 Amylase Level 668 H Lipase 12 L Blood Gas Specimen Source Blood arterial Arterial Blood Date Drawn 12/28/2016 12:35:29 AM Arterial Blood pH (Temp corrected) 7.359 Arterial Blood pCO2 (Temp correct) 36.5 Arterial Blood pO2 (Temp corrected) 120.5 H Arterial Blood HCO3 20.4 L Arterial Blood Base Excess -4.9 L Arterial Blood Oxygen Saturation 98.4 Abdoulaye Test ACCEPTAB Arterial Blood Gas Puncture Site Right Radial Arterial Blood Carboxyhemoglobin 0.3 Arterial Blood Methemoglobin 0.2 Blood Gas A-a O2 Differential 196.7 H Oxyhemoglobin Percent 97.9 Total Hemoglobin 13.1 Blood Gas Temperature 35.6 Blood Gas Respiration Rate 28.0 Blood Gas Actual Respiration Rate 28 Blood Gas Modality VENT - AC FiO2 50.0 Blood Gas Tidal Volume 450.0 Blood Gas Low PEEP Setting 5.0 Blood Gas Inspiratory Pressure 25.0 Blood Gas Notified Whom Riana [employer] Blood Gas Notified Time 12/28/2016 12:44:51 AM Bedside Glucose 113 121 Test 12/28/16 03:20 12/28/16 04:00 12/28/16 04:46 12/28/16 05:00 Bedside Glucose 118 148 White Blood Count 5.9 # Red Blood Count 3.49 L Hemoglobin 10.7 L Hematocrit 33.1 L Mean Corpuscular Volume 94.8 Mean Corpuscular Hemoglobin 30.7 Mean Corpuscular Hemoglobin Concent 32.3 Red Cell Distribution Width 14.1 Platelet Count 143 Mean Platelet Volume 11.4 H Neutrophils % Segmented Neutrophils % (Manual) 39 Band Neutrophils % (Manual) 28 H Lymphocytes % Lymphocytes % (Manual) 16 Reactive Lymphocytes % (Manual) 2 H Monocytes % Monocytes % (Manual) 14 H Eosinophils % Eosinophils % (Manual) 1 Basophils % Nucleated Red Blood Cells % 0.0 Neutrophils # Neutrophils # (Manual) 2.4 Band Neutrophils # 1.6 H Absolute Lymphocytes (Manual) 0.9 Lymphocytes # Reactive Lymphocytes # 0.1 H Monocytes # Absolute Monocytes (Manual) 0.8 Eosinophils # Basophils # Nucleated Red Blood Cells # Platelet Estimate NORMAL Giant Platelets 5 H Poikilocytosis 2+ Anisocytosis 1+ Macrocytosis 1+ Prothrombin Time 16.9 H Prothrombin Time Ratio 1.3 INR International Normalized Ratio 1.37 Activated Partial Thromboplast Time 33.1 Fibrinogen 527.0 #H Sodium Level 141 Potassium Level 4.1 Chloride Level 110 Carbon Dioxide Level 24 Anion Gap 11 Blood Urea Nitrogen 24 H Creatinine 0.64 Glucose Level 119 Lactic Acid Level 2.2 *H Calcium Level 7.5 L Phosphorus Level 2.8 Magnesium Level 1.6 L Total Bilirubin 0.0 L Direct Bilirubin 0.00 Indirect Bilirubin 0.0 Aspartate Amino Transf (AST/SGOT) 37 Alanine Aminotransferase (ALT/SGPT) 45 Alkaline Phosphatase 103 Troponin I 0.056 Total Protein 5.5 L Albumin 2.3 L Globulin 3.20 Albumin/Globulin Ratio 0.71 Amylase Level 542 #H Lipase 10 L Blood Gas Specimen Source Blood arterial Arterial Blood Date Drawn 12/27/2016 1:00:47 PM Arterial Blood pH (Temp corrected) 7.215 *L Arterial Blood pCO2 (Temp correct) 39.2 Arterial Blood pO2 (Temp corrected) 87.7 Arterial Blood HCO3 16.3 L Arterial Blood Base Excess -12.1 L Arterial Blood Oxygen Saturation 97.4 Abdoulaye Test ACCEPTAB Arterial Blood Gas Puncture Site Right Radial Arterial Blood Carboxyhemoglobin 0.3 Arterial Blood Methemoglobin 0.2 Blood Gas A-a O2 Differential 229.4 H Oxyhemoglobin Percent 96.9 Total Hemoglobin 13.6 Blood Gas Temperature 33.0 Blood Gas Respiration Rate 24.0 Blood Gas Actual Respiration Rate 24 Blood Gas Modality VENT - AC FiO2 50.0 Blood Gas Tidal Volume 450.0 Blood Gas Low PEEP Setting 5.0 Blood Gas Critical Value Read Back DR. RODRIGUEZ Blood Gas Notified Whom RT Blood Gas Notified Time 12/27/2016 1:09:33 PM Test 12/28/16 05:25 12/28/16 06:15 12/28/16 07:00 12/28/16 08:34 Bedside Glucose 131 171 138 116 Blood Gas Specimen Source Blood arterial Arterial Blood Date Drawn 12/28/2016 8:30:00 AM Arterial Blood pH (Temp corrected) 7.415 Arterial Blood pCO2 (Temp correct) 33.7 L Arterial Blood pO2 (Temp corrected) 127.1 H Arterial Blood HCO3 21.1 L Arterial Blood Base Excess -2.7 Arterial Blood Oxygen Saturation 98.3 Abdoulaye Test ACCEPTAB Arterial Blood Gas Puncture Site Right Radial Arterial Blood Carboxyhemoglobin 0.3 Arterial Blood Methemoglobin 0.2 Blood Gas A-a O2 Differential 191.5 H Oxyhemoglobin Percent 97.8 Total Hemoglobin 12.0 Blood Gas Temperature 37.0 Blood Gas Respiration Rate 28.0 Blood Gas Actual Respiration Rate 28 Blood Gas Modality VENT - AC FiO2 50.0 Blood Gas Tidal Volume 450.0 Blood Gas Low PEEP Setting 5.0 Blood Gas Notified Whom DT Blood Gas Notified Time 12/28/2016 8:43:00 AM Medications Current Medications Acetaminophen (Tylenol Supp) 650 mg Q4H PRN MO TEMP > 37C; Start 12/26/16 at 18 :00 Acetaminophen (Tylenol Liquid) 650 mg Q4H PRN PO TEMP > 37C; Start 12/26/16 at 18:00 Acetaminophen (Tylenol Supp) 500 mg Q6H MO Last administered on 12/27/16t 17:56 ; Admin Dose 500 MG; Start 12/27/16 at 18:00 Acetaminophen (Tylenol Liquid) 500 mg Q6H PO ; Start 12/27/16 at 18:00 Meperidine HCl (Demerol) 12.5 mg Q4H PRN IV POST OPERATIVE SHIVERING; Start at 18:00 Meperidine HCl (Demerol) 25 mg Q4H PRN IV POST OPERATIVE SHIVERING; Start 12/26 at 18:00 Eye Lubricant (Akwa Oint) 1 applic Q6 BOTH EYES Last administered on 12/28/16 06:11; Admin Dose 1 APPLIC; Start 12/26/16 at 18:00 Eye Lubricant 2 drop 2 drop Q6 BOTH EYES Last administered on 12/28/16 06:11; Admin Dose 2 DROP; Start 12/26/16 at 18:00 Dextrose/Sodium Chloride (D5-1/2ns) 1,000 ml @ 100 mls/hr Q10H IV Last administered on 12/28/16 09:04; Admin Dose 100 MLS/HR; Start 12/26/16 at 18:00 Atropine Sulfate 0.5 mg 0.5 mg PRN PRN IV DECREASED HEART RATE; Start 12/26/16 at 22:00 Vancomycin HCl 250 ml @ 125 mls/hr Q24H IVPB Last administered on 12/27/16 11 :48; Admin Dose 125 MLS/HR; Start 12/27/16 at 12:00 Propofol 100 ml @ 1.86 mls/hr Q12H IV Last administered on 12/27/16 18:31; Admin Dose 3.72 MLS/HR; Start 12/27/16 at 23:30 Levetiracetam (Keppra 1,000mg/ 100ml (Pmx)) 100 ml @ 400 mls/hr Q12 IVPB ; Start 12/28/16 at 11:00 Assessment/Plan Additional Assessment/Plan IMP: 1. s/p Cardiopulmonary arrest--2/2 #2 2. Possible aspiration pneumonia/mucus plugging 3. Small right PTX 4. Hypoxemic respiratory failure. 5. Myoclonic jerks vs. non-convulsive status--both poor prognosticators in setting of anoxia+ PLAN: 1. Keppra IV and propofol gtt 2. Broad-spectrum antibiotics 3. Stat EEG 4. Follow Neuro exam closely 5. Will need to discuss goals of care with family 35 min cc time NAIDA RODRIGUEZ MD Dec 28, 2016 11:11
[2016-12-28] MEDS: LEVETIRACETAM 1000 MG (PMX) 100 ML IVPB SCH ×2 (12:06→21:41)
[2016-12-28] MEDS: VANCOMYCIN 1 GM in NS 250 ML IVPB SCH (12:46)
--- NOTE | 2016-12-28 12:46 | CONS ---
Date/Time of Note Date/Time of Note DATE: 12/28/16 TIME: 12:45 Assessment/Plan Assessment/Plan Additional Assessment/Plan 1. cardiopulmonary arrest: appears probably related to pulm arrest 2. abnormal ECG 3. Likely anoxic brain injury 4. sepsis 5. severe lactic acidosis 6. hx dementia. 7. short P afib post arrest 8. small pneumothorax 9. hypoxemic resp failure: intubated now. Recommendations: myoclonus vs seizure activity post arrest neurology input appreciated ICU for close monitoring. Normal EF When support respiratory care will be continued as well. Pulmonary has been already been consulted to evaluate the patient. Consultation Date/Type/Reason Admit Date/Time Dec 26, 2016 at 12:45 Initial Consult Date 12/26/16 Type of Consultation: Pulm/CCM Referring Provider: MAJOR ROBIN MD 24 HR Interval Summary Free Text/Dictation seizure like activity Exam/Review of Systems Vital Signs Vitals Vital Signs Date Time Temp Pulse Resp B/P Pulse Ox O2 Delivery O2 Flow Rate FiO2 12/28/16 11:00 86 28 97/62 100 Mechanical Ventilator 12/28/16 09:20 50 12/28/16 08:30 99.4 12/26/16 11:54 15.0 Intake and Output 12/27/16 12/27/16 12/28/16 15:00 23:00 07:00 Intake Total 1547.542 ml 730.22 ml 783.90 ml Output Total 305 ml 270 ml 260 ml Balance 1242.542 ml 460.22 ml 523.90 ml Results Result Diagram: 12/28/16 0400 12/28/16 0400 Results 24 hrs Laboratory Tests Test 12/27/16 12:48 12/27/16 13:58 12/27/16 15:06 12/27/16 16:11 Bedside Glucose 147 119 80 72 Test 12/27/16 16:49 12/27/16 17:30 12/27/16 18:35 12/27/16 18:52 Bedside Glucose 78 72 82 White Blood Count 4.8 Red Blood Count 3.83 L Hemoglobin 11.8 L Hematocrit 37.1 L Mean Corpuscular Volume 96.9 Mean Corpuscular Hemoglobin 30.8 Mean Corpuscular Hemoglobin Concent 31.8 L Red Cell Distribution Width 14.0 Platelet Count 148 Mean Platelet Volume 10.9 H Neutrophils % Segmented Neutrophils % (Manual) 39 Band Neutrophils % (Manual) 25 H Lymphocytes % Lymphocytes % (Manual) 16 Monocytes % Monocytes % (Manual) 15 H Eosinophils % Basophils % Metamyelocytes % (manual) 5 H Nucleated Red Blood Cells % 0.0 Neutrophils # Neutrophils # (Manual) 1.9 Band Neutrophils # 1.2 H Absolute Lymphocytes (Manual) 0.7 L Lymphocytes # Monocytes # Absolute Monocytes (Manual) 0.7 Eosinophils # Basophils # Metamyelocytes # 0.2 H Nucleated Red Blood Cells # Platelet Estimate NORMAL Polychromasia 1+ Poikilocytosis 2+ Anisocytosis 1+ Macrocytosis 1+ Prothrombin Time 15.7 H Prothrombin Time Ratio 1.2 INR International Normalized Ratio 1.24 Activated Partial Thromboplast Time 32.2 Fibrinogen 538.0 H Sodium Level 144 Potassium Level 3.4 L Chloride Level 113 H Carbon Dioxide Level 18 L Anion Gap 16 Blood Urea Nitrogen 21 H Creatinine 0.58 L Glucose Level 75 # Calcium Level 7.4 L Phosphorus Level 2.2 L Magnesium Level 1.6 L Total Bilirubin 0.1 L Direct Bilirubin 0.00 Indirect Bilirubin 0.1 Aspartate Amino Transf (AST/SGOT) 40 Alanine Aminotransferase (ALT/SGPT) 52 Alkaline Phosphatase 125 H Troponin I 0.063 Total Protein 5.8 L Albumin 2.7 L Globulin 3.10 Albumin/Globulin Ratio 0.87 Amylase Level 565 H Lipase 19 L Test 12/27/16 19:53 12/27/16 21:02 12/27/16 22:16 12/27/16 23:10 Bedside Glucose 88 134 133 153 Test 12/27/16 23:56 12/28/16 00:19 12/28/16 00:38 12/28/16 01:07 Bedside Glucose 117 113 White Blood Count 4.3 L Red Blood Count 3.54 L Hemoglobin 10.9 L Hematocrit 34.5 L Mean Corpuscular Volume 97.5 Mean Corpuscular Hemoglobin 30.8 Mean Corpuscular Hemoglobin Concent 31.6 L Red Cell Distribution Width 14.1 Platelet Count 142 Mean Platelet Volume 11.5 H Neutrophils % 78.8 H Lymphocytes % 9.8 L Monocytes % 11.0 Eosinophils % 0.0 Basophils % 0.2 Nucleated Red Blood Cells % 0.0 Neutrophils # 3.4 Lymphocytes # 0.4 L Monocytes # 0.5 Eosinophils # 0.0 Basophils # 0.0 Nucleated Red Blood Cells # 0.0 Prothrombin Time 17.0 H Prothrombin Time Ratio 1.3 INR International Normalized Ratio 1.38 Activated Partial Thromboplast Time 31.4 Fibrinogen 431.0 # Sodium Level 141 Potassium Level 4.0 Chloride Level 111 H Carbon Dioxide Level 22 Anion Gap 12 Blood Urea Nitrogen 25 H Creatinine 0.59 L Glucose Level 126 # Calcium Level 7.5 L Phosphorus Level 3.1 Magnesium Level 1.6 L Total Bilirubin 0.0 L Direct Bilirubin 0.00 Indirect Bilirubin 0.0 Aspartate Amino Transf (AST/SGOT) 39 Alanine Aminotransferase (ALT/SGPT) 49 Alkaline Phosphatase 100 Troponin I 0.061 Total Protein 5.6 L Albumin 2.4 L Globulin 3.20 Albumin/Globulin Ratio 0.75 Amylase Level 668 H Lipase 12 L Blood Gas Specimen Source Blood arterial Arterial Blood Date Drawn 12/28/2016 12:35:29 AM Arterial Blood pH (Temp corrected) 7.359 Arterial Blood pCO2 (Temp correct) 36.5 Arterial Blood pO2 (Temp corrected) 120.5 H Arterial Blood HCO3 20.4 L Arterial Blood Base Excess -4.9 L Arterial Blood Oxygen Saturation 98.4 Abdoulaye Test ACCEPTAB Arterial Blood Gas Puncture Site Right Radial Arterial Blood Carboxyhemoglobin 0.3 Arterial Blood Methemoglobin 0.2 Blood Gas A-a O2 Differential 196.7 H Oxyhemoglobin Percent 97.9 Total Hemoglobin 13.1 Blood Gas Temperature 35.6 Blood Gas Respiration Rate 28.0 Blood Gas Actual Respiration Rate 28 Blood Gas Modality VENT - AC FiO2 50.0 Blood Gas Tidal Volume 450.0 Blood Gas Low PEEP Setting 5.0 Blood Gas Inspiratory Pressure 25.0 Blood Gas Notified Whom D [employer]I [employer]STRUCTION[employer]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 Blood Gas Notified Time 12/28/2016 12:44:51 AM Test 12/28/16 02:04 12/28/16 03:20 12/28/16 04:00 12/28/16 04:46 Bedside Glucose 121 118 148 White Blood Count 5.9 # Red Blood Count 3.49 L Hemoglobin 10.7 L Hematocrit 33.1 L Mean Corpuscular Volume 94.8 Mean Corpuscular Hemoglobin 30.7 Mean Corpuscular Hemoglobin Concent 32.3 Red Cell Distribution Width 14.1 Platelet Count 143 Mean Platelet Volume 11.4 H Neutrophils % Segmented Neutrophils % (Manual) 39 Band Neutrophils % (Manual) 28 H Lymphocytes % Lymphocytes % (Manual) 16 Reactive Lymphocytes % (Manual) 2 H Monocytes % Monocytes % (Manual) 14 H Eosinophils % Eosinophils % (Manual) 1 Basophils % Nucleated Red Blood Cells % 0.0 Neutrophils # Neutrophils # (Manual) 2.4 Band Neutrophils # 1.6 H Absolute Lymphocytes (Manual) 0.9 Lymphocytes # Reactive Lymphocytes # 0.1 H Monocytes # Absolute Monocytes (Manual) 0.8 Eosinophils # Basophils # Nucleated Red Blood Cells # Platelet Estimate NORMAL Giant Platelets 5 H Poikilocytosis 2+ Anisocytosis 1+ Macrocytosis 1+ Prothrombin Time 16.9 H Prothrombin Time Ratio 1.3 INR International Normalized Ratio 1.37 Activated Partial Thromboplast Time 33.1 Fibrinogen 527.0 #H Sodium Level 141 Potassium Level 4.1 Chloride Level 110 Carbon Dioxide Level 24 Anion Gap 11 Blood Urea Nitrogen 24 H Creatinine 0.64 Glucose Level 119 Lactic Acid Level 2.2 *H Calcium Level 7.5 L Phosphorus Level 2.8 Magnesium Level 1.6 L Total Bilirubin 0.0 L Direct Bilirubin 0.00 Indirect Bilirubin 0.0 Aspartate Amino Transf (AST/SGOT) 37 Alanine Aminotransferase (ALT/SGPT) 45 Alkaline Phosphatase 103 Troponin I 0.056 Total Protein 5.5 L Albumin 2.3 L Globulin 3.20 Albumin/Globulin Ratio 0.71 Amylase Level 542 #H Lipase 10 L Test 12/28/16 05:00 12/28/16 05:25 12/28/16 06:15 12/28/16 07:00 Blood Gas Specimen Source Blood arterial Blood arterial Arterial Blood Date Drawn 12/27/2016 1:00:47 PM 12/28/2016 8:30:00 AM Arterial Blood pH (Temp corrected) 7.215 *L 7.415 Arterial Blood pCO2 (Temp correct) 39.2 33.7 L Arterial Blood pO2 (Temp corrected) 87.7 127.1 H Arterial Blood HCO3 16.3 L 21.1 L Arterial Blood Base Excess -12.1 L -2.7 Arterial Blood Oxygen Saturation 97.4 98.3 Abdoulaye Test ACCEPTAB ACCEPTAB Arterial Blood Gas Puncture Site Right Radial Right Radial Arterial Blood Carboxyhemoglobin 0.3 0.3 Arterial Blood Methemoglobin 0.2 0.2 Blood Gas A-a O2 Differential 229.4 H 191.5 H Oxyhemoglobin Percent 96.9 97.8 Total Hemoglobin 13.6 12.0 Blood Gas Temperature 33.0 37.0 Blood Gas Respiration Rate 24.0 28.0 Blood Gas Actual Respiration Rate 24 28 Blood Gas Modality VENT - AC VENT - AC FiO2 50.0 50.0 Blood Gas Tidal Volume 450.0 450.0 Blood Gas Low PEEP Setting 5.0 5.0 Blood Gas Critical Value Read Back DR. RODRIGUEZ Blood Gas Notified Whom RT DT Blood Gas Notified Time 12/27/2016 1:09:33 PM 12/28/2016 8:43:00 AM Bedside Glucose 131 171 138 Test 12/28/16 08:34 Bedside Glucose 116 Medications Medications Current Medications Acetaminophen (Tylenol Supp) [address] TEMP > 37C; Start 12/26/16 at 18 :00 Acetaminophen (Tylenol Liquid) 650 mg Q4H PRN PO TEMP > 37C; Start 12/26/16 at 18:00 Acetaminophen (Tylenol Supp) [address] Last administered on 12/27/16 17:56 ; Admin Dose 500 MG; Start 12/27/16 at 18:00 Acetaminophen (Tylenol Liquid) 500 mg Q6H PO Last administered on 12/28/16 12: 06; Admin Dose 500 MG; Start 12/27/16 at 18:00 Meperidine HCl (Demerol) 12.5 mg Q4H PRN IV POST OPERATIVE SHIVERING; Start at 18:00 Meperidine HCl (Demerol) 25 mg Q4H PRN IV POST OPERATIVE SHIVERING; Start 12/26 at 18:00 Eye Lubricant (Akwa Oint) 1 applic Q6 BOTH EYES Last administered on 12/28/16 12:11; Admin Dose 1 APPLIC; Start 12/26/16 at 18:00 Eye Lubricant 2 drop 2 drop Q6 BOTH EYES Last administered on 12/28/16 12:10; Admin Dose 2 DROP; Start 12/26/16 at 18:00 Dextrose/Sodium Chloride (D5-1/2ns) 1,000 ml @ 100 mls/hr Q10H IV Last administered on 12/28/16 09:04; Admin Dose 100 MLS/HR; Start 12/26/16 at 18:00 Atropine Sulfate 0.5 mg 0.5 mg PRN PRN IV DECREASED HEART RATE; Start 12/26/16 at 22:00 Vancomycin HCl 250 ml @ 125 mls/hr Q24H IVPB Last administered on 12/27/16 11 :48; Admin Dose 125 MLS/HR; Start 12/27/16 at 12:00 Propofol 100 ml @ 1.86 mls/hr Q12H IV Last administered on 12/27/16 18:31; Admin Dose 3.72 MLS/HR; Start 12/27/16 at 23:30 Levetiracetam (Keppra 1,000mg/ 100ml (Pmx)) 100 ml @ 400 mls/hr Q12 IVPB Last administered on 12/28/16 12:06; Admin Dose 400 MLS/HR; Start 12/28/16 at 11:00 Miscellaneous Information (*Rx Drug Level Order Reminder*) VANCOMYCIN TROUGH AT 1100 ONCE ONCE XX ; Start 12/29/16 at 11:00; Stop 12/29/16 at 11:01 RICHI TORREZ MD Dec 28, 2016 12:46
[2016-12-28] MEDS: PROPOFOL 100 ML IV SCH ×2 (14:32→22:03)
--- NOTE | 2016-12-28 15:07 | PN ---
Date/Time of Note Date/Time of Note DATE: 12/28/16 TIME: 15:05 Assessment/Plan VTE Prophylaxis VTE Prophylaxis Intervention: LMWH Lines/Catheters IV Catheter Type (from Nrsg): Saline Lock Central line still needed: Yes Urinary Cath still in place: Yes Reason Cath still needed: urinary retention Assessment/Plan Chief Complaint/Hosp Course 89 yo male with unknown medical history preventing after PEA arrest, now with ROSC undergoing hypothermia protocol, small pneumothorax also present s/p PEA arrest: - Hypothermia protocol completed today Respiratory failure: - Continue mechanical ventilation via ETT - Abx for possible pneumonia Pneumothorax: - Likely from attempted IJ CVL, serial XR Will need to assess mental status over coming days to decide about further goals of care with family involvement 35 minutes ICU time Problems: Subjective 24 Hr Interval Summary Free Text/Dictation Completed hypothermia protocol Myotonic jerks vs seizures in face, started on IV Keppra, continues on propofol Moving head Exam/Review of Systems Vital Signs Vitals Vital Signs Date Time Temp Pulse Resp B/P Pulse Ox O2 Delivery O2 Flow Rate FiO2 12/28/16 14:30 83 28 94/60 100 12/28/16 14:00 Mechanical Ventilator 12/28/16 13:20 50 12/28/16 13:00 99.3 12/26/16 11:54 15.0 Intake and Output 12/27/16 12/27/16 12/28/16 15:00 23:00 07:00 Intake Total 1547.542 ml 730.22 ml 783.90 ml Output Total 305 ml 270 ml 260 ml Balance 1242.542 ml 460.22 ml 523.90 ml Results Result Diagram: 12/28/16 0400 12/28/16 0400 Results 24 hrs Laboratory Tests Test 12/27/16 15:06 12/27/16 16:11 12/27/16 16:49 12/27/16 17:30 Bedside Glucose 80 72 78 White Blood Count 4.8 Red Blood Count 3.83 L Hemoglobin 11.8 L Hematocrit 37.1 L Mean Corpuscular Volume 96.9 Mean Corpuscular Hemoglobin 30.8 Mean Corpuscular Hemoglobin Concent 31.8 L Red Cell Distribution Width 14.0 Platelet Count 148 Mean Platelet Volume 10.9 H Neutrophils % Segmented Neutrophils % (Manual) 39 Band Neutrophils % (Manual) 25 H Lymphocytes % Lymphocytes % (Manual) 16 Monocytes % Monocytes % (Manual) 15 H Eosinophils % Basophils % Metamyelocytes % (manual) 5 H Nucleated Red Blood Cells % 0.0 Neutrophils # Neutrophils # (Manual) 1.9 Band Neutrophils # 1.2 H Absolute Lymphocytes (Manual) 0.7 L Lymphocytes # Monocytes # Absolute Monocytes (Manual) 0.7 Eosinophils # Basophils # Metamyelocytes # 0.2 H Nucleated Red Blood Cells # Platelet Estimate NORMAL Polychromasia 1+ Poikilocytosis 2+ Anisocytosis 1+ Macrocytosis 1+ Prothrombin Time 15.7 H Prothrombin Time Ratio 1.2 INR International Normalized Ratio 1.24 Activated Partial Thromboplast Time 32.2 Fibrinogen 538.0 H Sodium Level 144 Potassium Level 3.4 L Chloride Level 113 H Carbon Dioxide Level 18 L Anion Gap 16 Blood Urea Nitrogen 21 H Creatinine 0.58 L Glucose Level 75 # Calcium Level 7.4 L Phosphorus Level 2.2 L Magnesium Level 1.6 L Total Bilirubin 0.1 L Direct Bilirubin 0.00 Indirect Bilirubin 0.1 Aspartate Amino Transf (AST/SGOT) 40 Alanine Aminotransferase (ALT/SGPT) 52 Alkaline Phosphatase 125 H Troponin I 0.063 Total Protein 5.8 L Albumin 2.7 L Globulin 3.10 Albumin/Globulin Ratio 0.87 Amylase Level 565 H Lipase 19 L Test 12/27/16 18:35 12/27/16 18:52 12/27/16 19:53 12/27/16 21:02 Bedside Glucose 72 82 88 134 Test 12/27/16 22:16 12/27/16 23:10 12/27/16 23:56 12/28/16 00:19 Bedside Glucose 133 153 117 White Blood Count 4.3 L Red Blood Count 3.54 L Hemoglobin 10.9 L Hematocrit 34.5 L Mean Corpuscular Volume 97.5 Mean Corpuscular Hemoglobin 30.8 Mean Corpuscular Hemoglobin Concent 31.6 L Red Cell Distribution Width 14.1 Platelet Count 142 Mean Platelet Volume 11.5 H Neutrophils % 78.8 H Lymphocytes % 9.8 L Monocytes % 11.0 Eosinophils % 0.0 Basophils % 0.2 Nucleated Red Blood Cells % 0.0 Neutrophils # 3.4 Lymphocytes # 0.4 L Monocytes # 0.5 Eosinophils # 0.0 Basophils # 0.0 Nucleated Red Blood Cells # 0.0 Prothrombin Time 17.0 H Prothrombin Time Ratio 1.3 INR International Normalized Ratio 1.38 Activated Partial Thromboplast Time 31.4 Fibrinogen 431.0 # Sodium Level 141 Potassium Level 4.0 Chloride Level 111 H Carbon Dioxide Level 22 Anion Gap 12 Blood Urea Nitrogen 25 H Creatinine 0.59 L Glucose Level 126 # Calcium Level 7.5 L Phosphorus Level 3.1 Magnesium Level 1.6 L Total Bilirubin 0.0 L Direct Bilirubin 0.00 Indirect Bilirubin 0.0 Aspartate Amino Transf (AST/SGOT) 39 Alanine Aminotransferase (ALT/SGPT) 49 Alkaline Phosphatase 100 Troponin I 0.061 Total Protein 5.6 L Albumin 2.4 L Globulin 3.20 Albumin/Globulin Ratio 0.75 Amylase Level 668 H Lipase 12 L Test 12/28/16 00:38 12/28/16 01:07 12/28/16 02:04 12/28/16 03:20 Blood Gas Specimen Source Blood arterial Arterial Blood Date Drawn 12/28/2016 12:35:29 AM Arterial Blood pH (Temp corrected) 7.359 Arterial Blood pCO2 (Temp correct) 36.5 Arterial Blood pO2 (Temp corrected) 120.5 H Arterial Blood HCO3 20.4 L Arterial Blood Base Excess -4.9 L Arterial Blood Oxygen Saturation 98.4 Abdoulaye Test ACCEPTAB Arterial Blood Gas Puncture Site Right Radial Arterial Blood Carboxyhemoglobin 0.3 Arterial Blood Methemoglobin 0.2 Blood Gas A-a O2 Differential 196.7 H Oxyhemoglobin Percent 97.9 Total Hemoglobin 13.1 Blood Gas Temperature 35.6 Blood Gas Respiration Rate 28.0 Blood Gas Actual Respiration Rate 28 Blood Gas Modality VENT - AC FiO2 50.0 Blood Gas Tidal Volume 450.0 Blood Gas Low PEEP Setting 5.0 Blood Gas Inspiratory Pressure 25.0 Blood Gas Notified Whom D 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 Blood Gas Notified Time 12/28/2016 12:44:51 AM Bedside Glucose 113 121 118 Test 12/28/16 04:00 12/28/16 04:46 12/28/16 05:00 12/28/16 05:25 White Blood Count 5.9 # Red Blood Count 3.49 L Hemoglobin 10.7 L Hematocrit 33.1 L Mean Corpuscular Volume 94.8 Mean Corpuscular Hemoglobin 30.7 Mean Corpuscular Hemoglobin Concent 32.3 Red Cell Distribution Width 14.1 Platelet Count 143 Mean Platelet Volume 11.4 H Neutrophils % Segmented Neutrophils % (Manual) 39 Band Neutrophils % (Manual) 28 H Lymphocytes % Lymphocytes % (Manual) 16 Reactive Lymphocytes % (Manual) 2 H Monocytes % Monocytes % (Manual) 14 H Eosinophils % Eosinophils % (Manual) 1 Basophils % Nucleated Red Blood Cells % 0.0 Neutrophils # Neutrophils # (Manual) 2.4 Band Neutrophils # 1.6 H Absolute Lymphocytes (Manual) 0.9 Lymphocytes # Reactive Lymphocytes # 0.1 H Monocytes # Absolute Monocytes (Manual) 0.8 Eosinophils # Basophils # Nucleated Red Blood Cells # Platelet Estimate NORMAL Giant Platelets 5 H Poikilocytosis 2+ Anisocytosis 1+ Macrocytosis 1+ Prothrombin Time 16.9 H Prothrombin Time Ratio 1.3 INR International Normalized Ratio 1.37 Activated Partial Thromboplast Time 33.1 Fibrinogen 527.0 #H Sodium Level 141 Potassium Level 4.1 Chloride Level 110 Carbon Dioxide Level 24 Anion Gap 11 Blood Urea Nitrogen 24 H Creatinine 0.64 Glucose Level 119 Lactic Acid Level 2.2 *H Calcium Level 7.5 L Phosphorus Level 2.8 Magnesium Level 1.6 L Total Bilirubin 0.0 L Direct Bilirubin 0.00 Indirect Bilirubin 0.0 Aspartate Amino Transf (AST/SGOT) 37 Alanine Aminotransferase (ALT/SGPT) 45 Alkaline Phosphatase 103 Troponin I 0.056 Total Protein 5.5 L Albumin 2.3 L Globulin 3.20 Albumin/Globulin Ratio 0.71 Amylase Level 542 #H Lipase 10 L Bedside Glucose 148 131 Blood Gas Specimen Source Blood arterial Arterial Blood Date Drawn 12/27/2016 1:00:47 PM Arterial Blood pH (Temp corrected) 7.215 *L Arterial Blood pCO2 (Temp correct) 39.2 Arterial Blood pO2 (Temp corrected) 87.7 Arterial Blood HCO3 16.3 L Arterial Blood Base Excess -12.1 L Arterial Blood Oxygen Saturation 97.4 Abdoulaye Test ACCEPTAB Arterial Blood Gas Puncture Site Right Radial Arterial Blood Carboxyhemoglobin 0.3 Arterial Blood Methemoglobin 0.2 Blood Gas A-a O2 Differential 229.4 H Oxyhemoglobin Percent 96.9 Total Hemoglobin 13.6 Blood Gas Temperature 33.0 Blood Gas Respiration Rate 24.0 Blood Gas Actual Respiration Rate 24 Blood Gas Modality VENT - AC FiO2 50.0 Blood Gas Tidal Volume 450.0 Blood Gas Low PEEP Setting 5.0 Blood Gas Critical Value Read Back DR. RODRIGUEZ Blood Gas Notified Whom RT Blood Gas Notified Time 12/27/2016 1:09:33 PM Test 12/28/16 06:15 12/28/16 07:00 12/28/16 08:34 Bedside Glucose 171 138 116 Blood Gas Specimen Source Blood arterial Arterial Blood Date Drawn 12/28/2016 8:30:00 AM Arterial Blood pH (Temp corrected) 7.415 Arterial Blood pCO2 (Temp correct) 33.7 L Arterial Blood pO2 (Temp corrected) 127.1 H Arterial Blood HCO3 21.1 L Arterial Blood Base Excess -2.7 Arterial Blood Oxygen Saturation 98.3 Abdoulaye Test ACCEPTAB Arterial Blood Gas Puncture Site Right Radial Arterial Blood Carboxyhemoglobin 0.3 Arterial Blood Methemoglobin 0.2 Blood Gas A-a O2 Differential 191.5 H Oxyhemoglobin Percent 97.8 Total Hemoglobin 12.0 Blood Gas Temperature 37.0 Blood Gas Respiration Rate 28.0 Blood Gas Actual Respiration Rate 28 Blood Gas Modality VENT - AC FiO2 50.0 Blood Gas Tidal Volume 450.0 Blood Gas Low PEEP Setting 5.0 Blood Gas Notified Whom DT Blood Gas Notified Time 12/28/2016 8:43:00 AM Medications Medications Current Medications Acetaminophen (Tylenol Supp) 650 mg Q4H PRN DC TEMP > 37C; Start 12/26/16 at 18 :00 Acetaminophen (Tylenol Liquid) 650 mg Q4H PRN PO TEMP > 37C; Start 12/26/16 at 18:00 Acetaminophen (Tylenol Supp) 500 mg Q6H DC Last administered on 12/27/16 17:56 ; Admin Dose 500 MG; Start 12/27/16 at 18:00 Acetaminophen (Tylenol Liquid) 500 mg Q6H PO Last administered on 12/28/16 12: 06; Admin Dose 500 MG; Start 12/27/16 at 18:00 Meperidine HCl (Demerol) 12.5 mg Q4H PRN IV POST OPERATIVE SHIVERING; Start at 18:00 Meperidine HCl (Demerol) 25 mg Q4H PRN IV POST OPERATIVE SHIVERING; Start 12/26 at 18:00 Eye Lubricant (Akwa Oint) 1 applic Q6 BOTH EYES Last administered on 12/28/16 12:11; Admin Dose 1 APPLIC; Start 12/26/16 at 18:00 Eye Lubricant 2 drop 2 drop Q6 BOTH EYES Last administered on 12/28/16 12:10; Admin Dose 2 DROP; Start 12/26/16 at 18:00 Dextrose/Sodium Chloride (D5-1/2ns) 1,000 ml @ 100 mls/hr Q10H IV Last administered on 12/28/16 09:04; Admin Dose 100 MLS/HR; Start 12/26/16 at 18:00 Atropine Sulfate 0.5 mg 0.5 mg PRN PRN IV DECREASED HEART RATE; Start 12/26/16 at 22:00 Vancomycin HCl 250 ml @ 125 mls/hr Q24H IVPB Last administered on 12/28/16 12 :46; Admin Dose 125 MLS/HR; Start 12/27/16 at 12:00 Propofol 100 ml @ 1.86 mls/hr Q12H IV Last administered on 12/28/16 14:32; Admin Dose 5.58 MLS/HR; Start 12/27/16 at 23:30 Levetiracetam (Keppra 1,000mg/ 100ml (Pmx)) 100 ml @ 400 mls/hr Q12 IVPB Last administered on 12/28/16 12:06; Admin Dose 400 MLS/HR; Start 12/28/16 at 11:00 Miscellaneous Information (*Rx Drug Level Order Reminder*) VANCOMYCIN TROUGH AT 1100 ONCE ONCE XX ; Start 12/29/16 at 11:00; Stop 12/29/16 at 11:01 MIGUEL ANGEL GARSIA MD Dec 28, 2016 15:06
[2016-12-28] MEDS ORDERED: MIDAZOLAM (DRIP) 50 mg/50 mL 50 ML IV ONE (21:48)
[2016-12-28] MEDS: MIDAZOLAM (DRIP) 50 mg/50 mL 50 ML IV SCH (22:02)
[2016-12-29] VITALS (46 sets, daily range): BP systolic 95–131; BP diastolic 56–74; PULSE 78–86; RESP 19–30
[2016-12-29 05:11] LABS: ABNORMAL IP MESSAGE 1; HEMATOCRIT 30.5 % (42.0-52.0); HEMOGLOBIN 9.8 g/dl (14.0-18.0); MEAN CORPUSCULAR HEMOGLOBIN 30.1 pg (29.0-33.0); MEAN CORPUSCULAR HGB CONC 32.1 g/dl (32.0-37.0); MEAN CORPUSCULAR VOLUME 93.6 fl (82.0-101.0); MEAN PLATELET VOLUME 11.8 fl (7.4-10.4); PLATELET COUNT 148 10^3/UL (140-415); POSITIVE DIFF @See below; RED BLOOD COUNT 3.26 10^6/ul (4.70-6.10); RED CELL DISTRIBUTION WIDTH 14.5 % (11.5-14.5); WHITE BLOOD COUNT 9.7 10^3/ul (4.8-10.8)
[2016-12-29 05:41] LABS: ALBUMIN 2.4 g/dl (3.3-4.9); ALBUMIN/GLOBULIN RATIO 0.8; BILIRUBIN,INDIRECT 0.1 mg/dl (0-1.1); BILIRUBIN,TOTAL 0.1 mg/dl (0.2-1.3); CALCIUM 7.6 mg/dl (8.4-10.2); CREATININE 0.73 mg/dl (0.61-1.24); POTASSIUM 3.8 mmol/L (3.5-5.1); TOTAL PROTEIN 5.4 g/dl (6.1-8.1)
[2016-12-29] MEDS: DEXTROSE 5%-0.45% NACL 1,000 ML IV SCH (06:00)
[2016-12-29] MEDS: ARTIFICIAL TEARS 15 ML OPH BOTH EYES SCH ×4 (06:23→18:00)
[2016-12-29] MEDS: OCULAR LUBRICANT 3.5 GM OPH OINT BOTH EYES SCH ×4 (06:23→18:00)
[2016-12-29 06:36] LABS: AADO2 Arterial 139.6 mmHg (7.0-24.0); Allen Test ACCEPTAB; Arterial Base Excess -0.8 mmol/L (-3.0-3); Arterial COHb 0.3 % (0.0-3.0); Arterial Fraction of Oxyhgb 97.6 % (93.0-99.0); Arterial HCO3 22.2 mmol/L (22.0-26.0); Arterial MetHb 0.3 % (0.0-1.5); Arterial Total Hemglobin 12.3 g/dl (12.0-18.0); MODE VENT - AC
--- NOTE | 2016-12-29 07:51 | RADRPT ---
PROCEDURE: XR Chest. CLINICAL INDICATION: Shortness of breath. TECHNIQUE: Single frontal view. COMPARISON: 12/28/2016. FINDINGS: The endotracheal tube and nasogastric tube remain in satisfactory position. There is mild atelectasi s at the lung bases, unchanged. The lungs are otherwise clear. The heart size is normal. There is calcification in the aorta consistent with atherosclerosis. There is no pleural effusion. There is no pneumothorax. IMPRESSION: 1. Endotracheal tube and nasogastric tube in satisfactory position. 2. Mild atelectasis at the lung bases. 3. Atherosclerosis. 4. Otherwise unremarkable chest radiograph. 5. No change from 12/28/2016. RPTAT: QQ .Cole Calloway MD, MD Date Time Electronically viewed and signed by .Cole Calloway MD, MD on 12/29/2016 07:50 .R/
[2016-12-29 08:55] LABS: MONOCYTES % (M) 5 % (0-11); POIKILOCYTOSIS 1+ (0-0)
--- NOTE | 2016-12-29 09:42 | CONS ---
Date/Time of Note Date/Time of Note DATE: 12/29/16 TIME: 09:40 Consult Date/Type/Reason Admit Date/Time Dec 26, 2016 at 12:45 Initial Consult Date 12/26/16 Type of Consultation: Pulm/CCM Ordering Provider: MAJOR ROBIN MD Subjective Pulmonary status remains stable remains intubated on mechanical ventilation. Evidence of seizure activity off sedation. Continues Versed and propofol. Objective Vital Signs Date Time Temp Pulse Resp B/P Pulse Ox O2 Delivery O2 Flow Rate FiO2 12/29/16 08:30 82 28 106/59 99 12/29/16 08:30 40 12/29/16 08:00 99.6 Mechanical Ventilator 12/26/16 11:54 15.0 Intake and Output 12/28/16 12/28/16 12/29/16 15:00 23:00 07:00 Intake Total 1050 ml 988.90 ml 740.48 ml Output Total 434 ml 590 ml 445 ml Balance 616 ml 398.90 ml 295.48 ml Exam PHYSICAL EXAMINATION GENERAL: Elderly gentleman, intubated on mechanical ventilation, VITAL SIGNS: see below. HEENT: Pupils equal, round, and reactive to light. CARDIAC: S1, S2, 1/6 systolic ejection murmur CHEST: Diminished air entry bilaterally. ABDOMEN: Mildly distended. Bowel sounds present no guarding or rebound EXTREMITIES: No cyanosis, clubbing edema +1 NEUROLOGIC: Generalized weakness Results/Medications Result Diagram: 12/29/16 0500 12/29/16 0500 Results 24 hrs Laboratory Tests Test 12/29/16 05:00 White Blood Count 9.7 # Red Blood Count 3.26 L Hemoglobin 9.8 L Hematocrit 30.5 L Mean Corpuscular Volume 93.6 Mean Corpuscular Hemoglobin 30.1 Mean Corpuscular Hemoglobin Concent 32.1 Red Cell Distribution Width 14.5 Platelet Count 148 Mean Platelet Volume 11.8 H Neutrophils % Segmented Neutrophils % (Manual) 50 Band Neutrophils % (Manual) 33 H Lymphocytes % Lymphocytes % (Manual) 12 L Monocytes % Monocytes % (Manual) 5 Eosinophils % Basophils % Nucleated Red Blood Cells % 0.0 Neutrophils # Neutrophils # (Manual) 5.2 Band Neutrophils # 3.2 H Absolute Lymphocytes (Manual) 1.1 Lymphocytes # Monocytes # Absolute Monocytes (Manual) 0.4 Eosinophils # Basophils # Nucleated Red Blood Cells # Poikilocytosis 1+ Blood Gas Specimen Source Blood arterial Arterial Blood Date Drawn 12/29/2016 5:00:00 AM Arterial Blood pH (Temp corrected) 7.465 H Arterial Blood pCO2 (Temp correct) 31.6 L Arterial Blood pO2 (Temp corrected) 109.3 H Arterial Blood HCO3 22.2 Arterial Blood Base Excess -0.8 Arterial Blood Oxygen Saturation 98.2 Abdoulaye Test ACCEPTAB Arterial Blood Gas Puncture Site Right Radial Arterial Blood Carboxyhemoglobin 0.3 Arterial Blood Methemoglobin 0.3 Blood Gas A-a O2 Differential 139.6 H Oxyhemoglobin Percent 97.6 Total Hemoglobin 12.3 Blood Gas Temperature 37.0 Blood Gas Respiration Rate 28.0 Blood Gas Actual Respiration Rate 28 Blood Gas Modality VENT - AC FiO2 40.0 Blood Gas Tidal Volume 450.0 Blood Gas Low PEEP Setting 5.0 Blood Gas Notified Whom MH Blood Gas Notified Time 12/29/2016 5:06:00 AM Sodium Level 141 Potassium Level 3.8 Chloride Level 110 Carbon Dioxide Level 25 Anion Gap 10 Blood Urea Nitrogen 17 Creatinine 0.73 Glucose Level 140 Calcium Level 7.6 L Magnesium Level 2.2 Total Bilirubin 0.1 L Direct Bilirubin 0.00 Indirect Bilirubin 0.1 Aspartate Amino Transf (AST/SGOT) 46 Alanine Aminotransferase (ALT/SGPT) 39 Alkaline Phosphatase 99 Total Protein 5.4 L Albumin 2.4 L Globulin 3.00 Albumin/Globulin Ratio 0.80 Medications Current Medications Acetaminophen (Tylenol Supp) 650 mg Q4H PRN NV TEMP > 37C; Start 12/26/16 at 18 :00 Acetaminophen (Tylenol Liquid) 650 mg Q4H PRN PO TEMP > 37C; Start 12/26/16 at 18:00 Eye Lubricant (Akwa Oint) 1 applic Q6 BOTH EYES Last administered on 12/29/16 06:23; Admin Dose 1 APPLIC; Start 12/26/16 at 18:00 Eye Lubricant 2 drop 2 drop Q6 BOTH EYES Last administered on 12/29/16 06:23; Admin Dose 2 DROP; Start 12/26/16 at 18:00 Dextrose/Sodium Chloride (D5-1/2ns) 1,000 ml @ 100 mls/hr Q10H IV Last administered on 12/28/16 21:42; Admin Dose 100 MLS/HR; Start 11/3/17 at 18:00 Atropine Sulfate 0.5 mg 0.5 mg PRN PRN IV DECREASED HEART RATE; Start 12/26/16 at 22:00 Vancomycin HCl 250 ml @ 125 mls/hr Q24H IVPB Last administered on 12/28/16 12 :46; Admin Dose 125 MLS/HR; Start 12/27/16 at 12:00 Propofol 100 ml @ 1.86 mls/hr Q12H IV Last administered on 12/28/16 22:03; Admin Dose 7.44 MLS/HR; Start 12/27/16 at 23:30 Levetiracetam (Keppra 1,000mg/ 100ml (Pmx)) 100 ml @ 400 mls/hr Q12 IVPB Last administered on 12/28/16 21:41; Admin Dose 400 MLS/HR; Start 12/28/16 at 11:00 Miscellaneous Information VANCOMYCIN TROUGH 12/29 AT 1100 ONCE ONCE XX ; Start 12/29/16 at 11:00; Stop 12/29/16 at 11:01 Midazolam HCl (Versed) 50 ml @ 1 mls/hr TITRATE IV Last administered on 22:02; Admin Dose 1 MLS/HR; Start 12/28/16 at 22:00 Assessment/Plan Chief Complaint/Hosp Course IMP: 1. s/p Cardiopulmonary arrest--2/2 #2 2. Possible aspiration pneumonia/mucus plugging 3. Small right PTX 4. Hypoxemic respiratory failure. 5. Myoclonic jerks vs. non-convulsive status--both poor prognosticators in setting of anoxia+ preliminary EEG suggestive of status epilepticus PLAN: 1. Keppra IV and propofol gtt 2. Broad-spectrum antibiotics 3. Continue neuro recs. 4. Continue sedation with propofol and Versed for seizure control. 5. Will need to discuss goals of care with family Prognosis very poor. Critical care time 40 minutes. Problems: REJI FISHER MD, [facility] Dec 29, 2016 09:42
[2016-12-29] MEDS: LEVETIRACETAM 1000 MG (PMX) 100 ML IVPB SCH ×2 (09:51→22:53)
[2016-12-29] MEDS: PROPOFOL 100 ML IV SCH ×3 (11:30→21:30)
[2016-12-29] MEDS: VANCOMYCIN 1 GM in NS 250 ML IVPB SCH (12:36)
--- NOTE | 2016-12-29 14:07 | CONS ---
Date/Time of Note Date/Time of Note DATE: 12/29/16 TIME: 14:05 Consult Date/Type/Reason Admit Date/Time Dec 26, 2016 at 12:45 Initial Consult Date 12/26/16 Type of Consultation: CARD Ordering Provider: MAJOR ROBIN MD Subjective CARDIOLOGY FOLLOW UP NOTE: S: D.W STAFF and rhythm was reviewed. pt remains intubated on vent in ICU AND NONRESPONSIVE General: s/p intubation on vent and non responsive. HEENT: NC/AT. pupils are . round. NECK: no stridor. CV: RRR. systolic murmur; no gallop or rubs. PULM: + diffuse rhonchi. GI: SOFT, NT, ND, no rebound or guarding Extremity: trace B/L LE edema. no clubbing. neuro: non responsive Psych: unable to assess rectal: deferred : normal male ECG as above echo personally reviewed: 1. Lower limits of normal systolic function. Normal left ventricular cavity size. Moderate concentric left ventricular hypertrophy. Paradoxical septal motion consistent with IVCD or bundle branch block. Ejection fraction is visually estimated at 50 %. Tissue Doppler/Mitral Doppler indices are consistent with impaired relaxation (Stage I diastolic dysfunction). Multiple segmental wall motion abnormalities. 2. Mild mitral leaflet calcification. Mild mitral annular calcification. Trace mitral regurgitation. 3. Normal appearance of the aortic valve. No significant aortic stenosis or insufficiency. Aortic cusps appear mildly calcified. Mild to moderate aortic valve regurgitation. 4. Normal IVC with poor respiratory collapse, however patient on ventilator. CT Chest results reviewed. CXR reviewed. Objective Vital Signs Date Time Temp Pulse Resp B/P Pulse Ox O2 Delivery O2 Flow Rate FiO2 12/29/16 13:30 83 20 111/66 100 12/29/16 13:00 Mechanical Ventilator 12/29/16 12:00 99.6 12/29/16 11:10 40 12/26/16 11:54 15.0 Intake and Output 12/28/16 12/28/16 12/29/16 15:00 23:00 07:00 Intake Total 1050 ml 988.90 ml 740.48 ml Output Total 434 ml 590 ml 445 ml Balance 616 ml 398.90 ml 295.48 ml Results/Medications Result Diagram: 12/29/16 0500 12/29/16 0500 Results 24 hrs Laboratory Tests Test 12/29/16 05:00 12/29/16 11:03 White Blood Count 9.7 # Red Blood Count 3.26 L Hemoglobin 9.8 L Hematocrit 30.5 L Mean Corpuscular Volume 93.6 Mean Corpuscular Hemoglobin 30.1 Mean Corpuscular Hemoglobin Concent 32.1 Red Cell Distribution Width 14.5 Platelet Count 148 Mean Platelet Volume 11.8 H Neutrophils % Segmented Neutrophils % (Manual) 50 Band Neutrophils % (Manual) 33 H Lymphocytes % Lymphocytes % (Manual) 12 L Monocytes % Monocytes % (Manual) 5 Eosinophils % Basophils % Nucleated Red Blood Cells % 0.0 Neutrophils # Neutrophils # (Manual) 5.2 Band Neutrophils # 3.2 H Absolute Lymphocytes (Manual) 1.1 Lymphocytes # Monocytes # Absolute Monocytes (Manual) 0.4 Eosinophils # Basophils # Nucleated Red Blood Cells # Poikilocytosis 1+ Blood Gas Specimen Source Blood arterial Arterial Blood Date Drawn 12/29/2016 5:00:00 AM Arterial Blood pH (Temp corrected) 7.465 H Arterial Blood pCO2 (Temp correct) 31.6 L Arterial Blood pO2 (Temp corrected) 109.3 H Arterial Blood HCO3 22.2 Arterial Blood Base Excess -0.8 Arterial Blood Oxygen Saturation 98.2 Abdoulaye Test ACCEPTAB Arterial Blood Gas Puncture Site Right Radial Arterial Blood Carboxyhemoglobin 0.3 Arterial Blood Methemoglobin 0.3 Blood Gas A-a O2 Differential 139.6 H Oxyhemoglobin Percent 97.6 Total Hemoglobin 12.3 Blood Gas Temperature 37.0 Blood Gas Respiration Rate 28.0 Blood Gas Actual Respiration Rate 28 Blood Gas Modality VENT - AC FiO2 40.0 Blood Gas Tidal Volume 450.0 Blood Gas Low PEEP Setting 5.0 Blood Gas Notified Whom Blood Gas Notified Time 12/29/2016 5:06:00 AM Sodium Level 141 Potassium Level 3.8 Chloride Level 110 Carbon Dioxide Level 25 Anion Gap 10 Blood Urea Nitrogen 17 Creatinine 0.73 Glucose Level 140 Calcium Level 7.6 L Magnesium Level 2.2 Total Bilirubin 0.1 L Direct Bilirubin 0.00 Indirect Bilirubin 0.1 Aspartate Amino Transf (AST/SGOT) 46 Alanine Aminotransferase (ALT/SGPT) 39 Alkaline Phosphatase 99 Total Protein 5.4 L Albumin 2.4 L Globulin 3.00 Albumin/Globulin Ratio 0.80 Vancomycin Level Trough 5.3 L Medications Current Medications Acetaminophen (Tylenol Supp) 650 mg Q4H PRN DC TEMP > 37C; Start 11/3/17 at 18 :00 Acetaminophen (Tylenol Liquid) 650 mg Q4H PRN PO TEMP > 37C; Start 12/26/16 at 18:00 Eye Lubricant (Akwa Oint) 1 applic Q6 BOTH EYES Last administered on 12/29/16 12:36; Admin Dose 1 APPLIC; Start 12/26/16 at 18:00 Eye Lubricant (Artificial Tears Oph) 2 drop Q6 BOTH EYES Last administered on 12/29/16 12:36; Admin Dose 2 DROP; Start 12/26/16 at 18:00 Atropine Sulfate 0.5 mg 0.5 mg PRN PRN IV DECREASED HEART RATE; Start 12/26/16 at 22:00 Vancomycin HCl 250 ml @ 125 mls/hr Q24H IVPB Last administered on 12/29/16 12 :36; Admin Dose 125 MLS/HR; Start 12/27/16 at 12:00; Stop 12/29/16 at 15:00 Propofol 100 ml @ 1.86 mls/hr Q12H IV Last administered on 12/28/16 22:03; Admin Dose 7.44 MLS/HR; Start 12/27/16 at 23:30 Levetiracetam 100 ml @ 400 mls/hr Q12 IVPB Last administered on 12/29/16 09: 51; Admin Dose 400 MLS/HR; Start 12/28/16 at 11:00 Midazolam HCl (Versed) 50 ml @ 1 mls/hr TITRATE IV Last administered on 22:02; Admin Dose 1 MLS/HR; Start 12/28/16 at 22:00 Pantoprazole 40 mg 40 mg DAILY@06 IV ; Start 12/30/16 at 06:00 Vancomycin HCl/ Dextrose/Water (Vancocin/D5W) 150 ml @ 75 mls/hr Q12H IVPB ; Start 12/30/16 at 01:00 Assessment/Plan Chief Complaint/Hosp Course 1. cardiopulmonary arrest: appears probably related to pulm arrest 2. abnormal ECG 3. Likely anoxic brain injury 4. sepsis 5. severe lactic acidosis 6. hx dementia. 7. short P afib post arrest 8. small pneumothorax 9. hypoxemic resp failure: intubated now. 10. seizures 11.mildly abnormal trop due to above Recommendations: Patient has completed hypothermia protocol. When support respiratory care will be continued as well. neuro eval and managment as per IM/ neuro cont ICU care for now. prognosis is poor. Thank you for his referral. We will continue to follow along with you. MARYA SAUER MD [facility] Problems: MARYA SAUER MD Dec 29, 2016 14:07
--- NOTE | 2016-12-29 14:57 | PN ---
Date/Time of Note Date/Time of Note DATE: 12/29/16 TIME: 14:44 Assessment/Plan VTE Prophylaxis VTE Prophylaxis Intervention: SCD's Assessment/Plan Chief Complaint/Hosp Course 1. s/p PEA arrest and hypothermia protocol Monitor functional status Family conference tomorrow 2. Respiratory failure: Continue mechanical ventilation via ETT Abx for possible pneumonia 3. Pneumothorax Likely from attempted IJ CVL, serial XR Prophylaxis: SCDs Problems: Subjective 24 Hr Interval Summary Subjective hx not possible: pt non-verbal Exam/Review of Systems Vital Signs Vitals Vital Signs Date Time Temp Pulse Resp B/P Pulse Ox O2 Delivery O2 Flow Rate FiO2 12/29/16 14:00 81 21 117/67 100 Mechanical Ventilator 12/29/16 12:00 99.6 12/29/16 11:10 40 12/26/16 11:54 15.0 Intake and Output 12/28/16 12/28/16 12/29/16 15:00 23:00 07:00 Intake Total 1050 ml 988.90 ml 740.48 ml Output Total 434 ml 590 ml 445 ml Balance 616 ml 398.90 ml 295.48 ml Exam Constitutional: non-verbal ENMT: intubated Respiratory: clear to auscultation Cardiovascular: regular rate and rhythm Gastrointestinal: soft, No distended Musculoskeletal: nl extremities to inspection Results Result Diagram: 12/29/16 0500 12/29/16 0500 Results 24 hrs Laboratory Tests Test 12/29/16 05:00 12/29/16 11:03 White Blood Count 9.7 # Red Blood Count 3.26 L Hemoglobin 9.8 L Hematocrit 30.5 L Mean Corpuscular Volume 93.6 Mean Corpuscular Hemoglobin 30.1 Mean Corpuscular Hemoglobin Concent 32.1 Red Cell Distribution Width 14.5 Platelet Count 148 Mean Platelet Volume 11.8 H Neutrophils % Segmented Neutrophils % (Manual) 50 Band Neutrophils % (Manual) 33 H Lymphocytes % Lymphocytes % (Manual) 12 L Monocytes % Monocytes % (Manual) 5 Eosinophils % Basophils % Nucleated Red Blood Cells % 0.0 Neutrophils # Neutrophils # (Manual) 5.2 Band Neutrophils # 3.2 H Absolute Lymphocytes (Manual) 1.1 Lymphocytes # Monocytes # Absolute Monocytes (Manual) 0.4 Eosinophils # Basophils # Nucleated Red Blood Cells # Poikilocytosis 1+ Blood Gas Specimen Source Blood arterial Arterial Blood Date Drawn 12/29/2016 5:00:00 AM Arterial Blood pH (Temp corrected) 7.465 H Arterial Blood pCO2 (Temp correct) 31.6 L Arterial Blood pO2 (Temp corrected) 109.3 H Arterial Blood HCO3 22.2 Arterial Blood Base Excess -0.8 Arterial Blood Oxygen Saturation 98.2 Abdoulaye Test ACCEPTAB Arterial Blood Gas Puncture Site Right Radial Arterial Blood Carboxyhemoglobin 0.3 Arterial Blood Methemoglobin 0.3 Blood Gas A-a O2 Differential 139.6 H Oxyhemoglobin Percent 97.6 Total Hemoglobin 12.3 Blood Gas Temperature 37.0 Blood Gas Respiration Rate 28.0 Blood Gas Actual Respiration Rate 28 Blood Gas Modality VENT - AC FiO2 40.0 Blood Gas Tidal Volume 450.0 Blood Gas Low PEEP Setting 5.0 Blood Gas Notified Whom MH Blood Gas Notified Time 12/29/2016 5:06:00 AM Sodium Level 141 Potassium Level 3.8 Chloride Level 110 Carbon Dioxide Level 25 Anion Gap 10 Blood Urea Nitrogen 17 Creatinine 0.73 Glucose Level 140 Calcium Level 7.6 L Magnesium Level 2.2 Total Bilirubin 0.1 L Direct Bilirubin 0.00 Indirect Bilirubin 0.1 Aspartate Amino Transf (AST/SGOT) 46 Alanine Aminotransferase (ALT/SGPT) 39 Alkaline Phosphatase 99 Total Protein 5.4 L Albumin 2.4 L Globulin 3.00 Albumin/Globulin Ratio 0.80 Vancomycin Level Trough 5.3 L Medications Medications Current Medications Acetaminophen (Tylenol Supp) 650 mg Q4H PRN [place] TEMP > 37C; Start 12/26/16 at 18 :00 Acetaminophen (Tylenol Liquid) 650 mg Q4H PRN [place] TEMP > 37C; Start 12/26/16 at 18:00 Eye Lubricant (Akwa Oint) 1 applic Q6 BOTH EYES Last administered on 12/29/16 12:36; Admin Dose 1 APPLIC; Start 12/26/16 at 18:00 Eye Lubricant (Artificial Tears Oph) 2 drop Q6 BOTH EYES Last administered on 12/29/16 12:36; Admin Dose 2 DROP; Start 12/26/16 at 18:00 Atropine Sulfate 0.5 mg 0.5 mg PRN PRN IV DECREASED HEART RATE; Start 12/26/16 at 22:00 Vancomycin HCl 250 ml @ 125 mls/hr Q24H IVPB Last administered on 12/29/16 12 :36; Admin Dose 125 MLS/HR; Start 12/27/16 at 12:00; Stop 12/29/16 at 15:00 Propofol 100 ml @ 1.86 mls/hr Q12H IV Last administered on 12/28/16 22:03; Admin Dose 7.44 MLS/HR; Start 12/27/16 at 23:30 Levetiracetam 100 ml @ 400 mls/hr Q12 IVPB Last administered on 12/29/16 09: 51; Admin Dose 400 MLS/HR; Start 12/28/16 at 11:00 Midazolam HCl (Versed) 50 ml @ 1 mls/hr TITRATE IV Last administered on 22:02; Admin Dose 1 MLS/HR; Start 12/28/16 at 22:00 Pantoprazole 40 mg 40 mg DAILY@06 IV ; Start 12/30/16 at 06:00 Vancomycin HCl/ Dextrose/Water (Vancocin/D5W) 150 ml @ 75 mls/hr Q12H IVPB ; Start 12/30/16 at 01:00 JOVITA LERMA Dec 29, 2016 14:57
[2016-12-29] MEDS: MIDAZOLAM (DRIP) 50 mg/50 mL 50 ML IV SCH ×2 (21:30→22:52)
[2016-12-30] VITALS (45 sets, daily range): BP systolic 89–133; BP diastolic 53–79; PULSE 71–84; RESP 16–25
[2016-12-30] MEDS: ARTIFICIAL TEARS 15 ML OPH BOTH EYES SCH ×5 (01:11→23:46)
[2016-12-30] MEDS: OCULAR LUBRICANT 3.5 GM OPH OINT BOTH EYES SCH ×5 (01:11→23:46)
[2016-12-30] MEDS: VANCOMYCIN 750 MG in DEXTROSE 5% 150 ML IVPB SCH ×2 (01:12→12:18)
[2016-12-30 05:45] LABS: CALCIUM 7.7 mg/dl (8.4-10.2); CREATININE 0.79 mg/dl (0.61-1.24); MAGNESIUM 2.1 mg/dl (1.7-2.5); POTASSIUM 3.9 mmol/L (3.5-5.1)
[2016-12-30] MEDS ORDERED: PANTOPRAZOLE 40 MG INJ IV SCH (06:00)
[2016-12-30] MEDS: MIDAZOLAM (DRIP) 50 mg/50 mL 50 ML IV SCH (06:19)
--- NOTE | 2016-12-30 06:59 | RADRPT ---
PROCEDURE: XR Chest. CLINICAL INDICATION: Shortness of breath. TECHNIQUE: Single frontal view. COMPARISON: 12/29/2016. FINDINGS: The endotracheal tube and nasogastric tube remain in satisfactory position. Mild atelectasis at the lung bases is unchanged. The lungs are otherwise clear. The heart size is normal. There is calcification in the aorta consistent with atherosclerosis. There is no pleural effusion. There is no pneumothorax. IMPRESSION: 1. No change from the 12/29/2016 chest radiograph. RPTAT: QQ .Cole Calloway MD, MD Date Time Electronically viewed and signed by .Cole Calloway MD, MD on 12/30/2016 06:59 .R/
[2016-12-30] MEDS: LEVETIRACETAM 1000 MG (PMX) 100 ML IVPB SCH ×2 (08:39→20:30)
--- NOTE | 2016-12-30 09:38 | CONS ---
Date/Time of Note Date/Time of Note DATE: 12/30/16 TIME: 09:37 Consult Date/Type/Reason Admit Date/Time Dec 26, 2016 at 12:45 Initial Consult Date 12/26/16 Type of Consultation: Pulmonary Ordering Provider: MAJOR ROBIN MD Subjective No further seizure activity. Continues mechanical ventilation with sedation. Currently hemodynamically stable. Objective Vital Signs Date Time Temp Pulse Resp B/P Pulse Ox O2 Delivery O2 Flow Rate FiO2 12/30/16 08:00 74 12/30/16 08:00 40 12/30/16 07:30 98.6 20 122/65 99 Mechanical Ventilator 12/26/16 11:54 15.0 Intake and Output 12/29/16 12/29/16 12/30/16 15:00 23:00 07:00 Intake Total 493 ml 208.90 ml 563.06 ml Output Total 355 ml 290 ml 475 ml Balance 138 ml -81.10 ml 88.06 ml Exam PHYSICAL EXAMINATION GENERAL: Elderly gentleman, intubated on mechanical ventilation, VITAL SIGNS: see below. HEENT: Pupils equal, round, and reactive to light. CARDIAC: S1, S2, 1/6 systolic ejection murmur CHEST: Diminished air entry bilaterally. ABDOMEN: Mildly distended. Bowel sounds present no guarding or rebound EXTREMITIES: No cyanosis, clubbing edema +1 NEUROLOGIC: Generalized weakness Results/Medications Result Diagram: 12/30/16 0500 12/30/16 0500 Results 24 hrs Laboratory Tests Test 12/29/16 11:03 12/30/16 05:00 Vancomycin Level Trough 5.3 L White Blood Count 11.1 H Red Blood Count 3.33 L Hemoglobin 10.1 L Hematocrit 31.6 L Mean Corpuscular Volume 94.9 Mean Corpuscular Hemoglobin 30.3 Mean Corpuscular Hemoglobin Concent 32.0 Red Cell Distribution Width 14.5 Platelet Count 152 Mean Platelet Volume 11.7 H Neutrophils % 81.6 H Lymphocytes % 10.3 L Monocytes % 6.2 Eosinophils % 0.8 Basophils % 0.3 Nucleated Red Blood Cells % 0.0 Neutrophils # 9.0 H Lymphocytes # 1.1 Monocytes # 0.7 Eosinophils # 0.1 Basophils # 0.0 Nucleated Red Blood Cells # 0.0 Sodium Level 141 Potassium Level 3.9 Chloride Level 108 Carbon Dioxide Level 28 Anion Gap 9 Blood Urea Nitrogen 17 Creatinine 0.79 Glucose Level 114 Calcium Level 7.7 L Phosphorus Level 3.0 Magnesium Level 2.1 Medications Current Medications Acetaminophen (Tylenol Supp) 650 mg Q4H PRN [place] TEMP > 37C; Start 12/26/16 at 18 :00 Acetaminophen (Tylenol Liquid) 650 mg Q4H PRN PO TEMP > 37C; Start 12/26/16 at 18:00 Eye Lubricant (Akwa Oint) 1 applic Q6 BOTH EYES Last administered on 12/30/16 05:38; Admin Dose 1 APPLIC; Start 12/26/16 at 18:00 Eye Lubricant (Artificial Tears Oph) 2 drop Q6 BOTH EYES Last administered on 12/30/16 05:37; Admin Dose 2 DROP; Start 12/26/16 at 18:00 Atropine Sulfate 0.5 mg 0.5 mg PRN PRN IV DECREASED HEART RATE; Start 12/26/16 at 22:00 Propofol 100 ml @ 1.86 mls/hr Q12H IV Last administered on 12/29/16 21:30; Admin Dose 5.58 MLS/HR; Start 12/27/16 at 23:30 Levetiracetam 100 ml @ 400 mls/hr Q12 IVPB Last administered on 12/30/16 08: 39; Admin Dose 400 MLS/HR; Start 12/28/16 at 11:00 Midazolam HCl (Versed) 50 ml @ 1 mls/hr TITRATE IV Last administered on 06:19; Admin Dose 2 MLS/HR; Start 12/28/16 at 22:00 Pantoprazole 40 mg 40 mg DAILY@06 IV Last administered on 12/30/16 05:40; Admin Dose 40 MG; Start 12/30/16 at 06:00 Vancomycin HCl/ Dextrose/Water (Vancocin/D5W) 150 ml @ 75 mls/hr Q12H IVPB Last administered on 12/30/16 01:12; Admin Dose 75 MLS/HR; Start 12/30/16 at 01 :00 Assessment/Plan Chief Complaint/Hosp Course IMP: 1. s/p Cardiopulmonary arrest--2/2 #2 2. Possible aspiration pneumonia/mucus plugging 3. Small right PTX 4. Hypoxemic respiratory failure. 5. Myoclonic jerks vs. non-convulsive status--both poor prognosticators in setting of anoxia+ preliminary EEG suggestive of status epilepticus PLAN: 1. Keppra IV and sedation as needed. 2. Broad-spectrum antibiotics 3. Continue neuro recs. 4. Continue nasogastric tube feeding 5. Will need to discuss goals of care with family Prognosis very poor. Critical care time 40 minutes. Problems: REJI FISHER MD, [facility] Dec 30, 2016 09:38
--- NOTE | 2016-12-30 10:09 | CONS ---
Date/Time of Note Date/Time of Note DATE: 12/30/16 TIME: 10:07 Consult Date/Type/Reason Admit Date/Time Dec 26, 2016 at 12:45 Initial Consult Date 12/26/16 Type of Consultation: card Ordering Provider: MAJOR ROBIN MD Subjective CARDIOLOGY FOLLOW UP NOTE: S: D.W STAFF and rhythm was reviewed. pt remains intubated on vent in ICU AND NONRESPONSIVE BP has remained stable O: General: s/p intubation on vent and non responsive. HEENT: NC/AT. pupils are . round. NECK: no stridor. CV: RRR. systolic murmur; no gallop or rubs. PULM: + diffuse rhonchi. GI: SOFT, NT, ND, no rebound or guarding Extremity: trace B/L LE edema. no clubbing. neuro: non responsive Psych: unable to assess rectal: deferred : normal male echo personally reviewed: 1. Lower limits of normal systolic function. Normal left ventricular cavity size. Moderate concentric left ventricular hypertrophy. Paradoxical septal motion consistent with IVCD or bundle branch block. Ejection fraction is visually estimated at 50 %. Tissue Doppler/Mitral Doppler indices are consistent with impaired relaxation (Stage I diastolic dysfunction). Multiple segmental wall motion abnormalities. 2. Mild mitral leaflet calcification. Mild mitral annular calcification. Trace mitral regurgitation. 3. Normal appearance of the aortic valve. No significant aortic stenosis or insufficiency. Aortic cusps appear mildly calcified. Mild to moderate aortic valve regurgitation. 4. Normal IVC with poor respiratory collapse, however patient on ventilator. CT Chest results reviewed. CXR reviewed. Objective Vital Signs Date Time Temp Pulse Resp B/P Pulse Ox O2 Delivery O2 Flow Rate FiO2 12/30/16 09:30 75 20 118/61 100 Mechanical Ventilator 12/30/16 08:00 40 12/30/16 07:30 98.6 12/26/16 11:54 15.0 Intake and Output 12/29/16 12/29/16 12/30/16 15:00 23:00 07:00 Intake Total 493 ml 208.90 ml 563.06 ml Output Total 355 ml 290 ml 475 ml Balance 138 ml -81.10 ml 88.06 ml Results/Medications Result Diagram: 12/30/16 0500 12/30/16 0500 Results 24 hrs Laboratory Tests Test 12/29/16 11:03 12/30/16 05:00 Vancomycin Level Trough 5.3 L White Blood Count 11.1 H Red Blood Count 3.33 L Hemoglobin 10.1 L Hematocrit 31.6 L Mean Corpuscular Volume 94.9 Mean Corpuscular Hemoglobin 30.3 Mean Corpuscular Hemoglobin Concent 32.0 Red Cell Distribution Width 14.5 Platelet Count 152 Mean Platelet Volume 11.7 H Neutrophils % 81.6 H Lymphocytes % 10.3 L Monocytes % 6.2 Eosinophils % 0.8 Basophils % 0.3 Nucleated Red Blood Cells % 0.0 Neutrophils # 9.0 H Lymphocytes # 1.1 Monocytes # 0.7 Eosinophils # 0.1 Basophils # 0.0 Nucleated Red Blood Cells # 0.0 Sodium Level 141 Potassium Level 3.9 Chloride Level 108 Carbon Dioxide Level 28 Anion Gap 9 Blood Urea Nitrogen 17 Creatinine 0.79 Glucose Level 114 Calcium Level 7.7 L Phosphorus Level 3.0 Magnesium Level 2.1 Medications Current Medications Acetaminophen (Tylenol Supp) 650 mg Q4H PRN [place] TEMP > 37C; Start 12/26/16 at 18 :00 Acetaminophen (Tylenol Liquid) 650 mg Q4H PRN PO TEMP > 37C; Start 12/26/16 at 18:00 Eye Lubricant (Akwa Oint) 1 applic Q6 BOTH EYES Last administered on 12/30/16 05:38; Admin Dose 1 APPLIC; Start 12/26/16 at 18:00 Eye Lubricant (Artificial Tears Oph) 2 drop Q6 BOTH EYES Last administered on 12/30/16 05:37; Admin Dose 2 DROP; Start 12/26/16 at 18:00 Atropine Sulfate 0.5 mg 0.5 mg PRN PRN IV DECREASED HEART RATE; Start 12/26/16 at 22:00 Propofol 100 ml @ 1.86 mls/hr Q12H IV Last administered on 12/29/16 21:30; Admin Dose 5.58 MLS/HR; Start 12/27/16 at 23:30 Levetiracetam 100 ml @ 400 mls/hr Q12 IVPB Last administered on 12/30/16 08: 39; Admin Dose 400 MLS/HR; Start 12/28/16 at 11:00 Midazolam HCl (Versed) 50 ml @ 1 mls/hr TITRATE IV Last administered on 06:19; Admin Dose 2 MLS/HR; Start 12/28/16 at 22:00 Pantoprazole 40 mg 40 mg DAILY@06 IV Last administered on 12/30/16 05:40; Admin Dose 40 MG; Start 12/30/16 at 06:00 Vancomycin HCl/ Dextrose/Water (Vancocin/D5W) 150 ml @ 75 mls/hr Q12H IVPB Last administered on 12/30/16 01:12; Admin Dose 75 MLS/HR; Start 12/30/16 at 01 :00 Assessment/Plan Chief Complaint/Hosp Course 1. cardiopulmonary arrest: appears probably related to pulm arrest 2. abnormal ECG 3. Likely anoxic brain injury 4. sepsis 5. severe lactic acidosis 6. hx dementia. 7. short P afib post arrest 8. small pneumothorax 9. hypoxemic resp failure: intubated now. 10. seizures 11.mildly abnormal trop due to above Recommendations: Patient has completed hypothermia protocol. neuro eval and managment as per IM/ neuro cont ICU care for now. prognosis is poor. vent support for now family conf today Thank you for his referral. We will continue to follow along with you. MARYA SAUER MD [facility] Problems: MARYA SAUER MD Dec 30, 2016 10:08
--- NOTE | 2016-12-30 14:53 | RADRPT ---
Vent Rate: 70 bpm RR Interval: 0 msec MT Interval: 252 msec QRS Duration: 108 msec QT Interval: 392 msec QTC Interval: 423 msec P-R-T [place]: 38 - 5 - 51 degrees Sinus rhythm with 1st degree AV block with fusion complexes and premature atrial complexes with aberrant conduction Cannot rule out Inferior infarct , age undetermined Abnormal ECG Electronically Signed By: Mark Tellez [id number]
[2016-12-30] MEDS: PROPOFOL 100 ML IV SCH (16:15)
--- NOTE | 2016-12-30 16:32 | PN ---
Date/Time of Note Date/Time of Note DATE: 12/30/16 TIME: 16:29 Assessment/Plan VTE Prophylaxis VTE Prophylaxis Intervention: SCD's Assessment/Plan Chief Complaint/Hosp Course 1. s/p PEA arrest and hypothermia protocol Patient with persistent seizure activity, EEG does show seizure activity Family conference held today and plan is for DNR and hospice 2. Respiratory failure: Continue mechanical ventilation via ETT Abx for possible pneumonia 3. Pneumothorax Likely from attempted IJ CVL, serial XR 4. History of severe dementia Prophylaxis: SCDs Problems: Subjective 24 Hr Interval Summary Subjective hx not possible: pt non-verbal Exam/Review of Systems Vital Signs Vitals Vital Signs Date Time Temp Pulse Resp B/P Pulse Ox O2 Delivery O2 Flow Rate FiO2 12/30/16 16:00 99.5 79 20 108/67 99 Mechanical Ventilator 12/30/16 08:00 40 12/26/16 11:54 15.0 Intake and Output 12/29/16 12/29/16 12/30/16 15:00 23:00 07:00 Intake Total 493 ml 208.90 ml 563.06 ml Output Total 355 ml 290 ml 475 ml Balance 138 ml -81.10 ml 88.06 ml Exam Constitutional: non-verbal Respiratory: clear to auscultation Cardiovascular: regular rate and rhythm Gastrointestinal: soft, No distended Musculoskeletal: nl extremities to inspection Results Result Diagram: 12/30/16 0500 12/30/16 0500 Results 24 hrs Laboratory Tests Test 12/30/16 05:00 White Blood Count 11.1 H Red Blood Count 3.33 L Hemoglobin 10.1 L Hematocrit 31.6 L Mean Corpuscular Volume 94.9 Mean Corpuscular Hemoglobin 30.3 Mean Corpuscular Hemoglobin Concent 32.0 Red Cell Distribution Width 14.5 Platelet Count 152 Mean Platelet Volume 11.7 H Neutrophils % 81.6 H Lymphocytes % 10.3 L Monocytes % 6.2 Eosinophils % 0.8 Basophils % 0.3 Nucleated Red Blood Cells % 0.0 Neutrophils # 9.0 H Lymphocytes # 1.1 Monocytes # 0.7 Eosinophils # 0.1 Basophils # 0.0 Nucleated Red Blood Cells # 0.0 Sodium Level 141 Potassium Level 3.9 Chloride Level 108 Carbon Dioxide Level 28 Anion Gap 9 Blood Urea Nitrogen 17 Creatinine 0.79 Glucose Level 114 Calcium Level 7.7 L Phosphorus Level 3.0 Magnesium Level 2.1 Medications Medications Current Medications Acetaminophen (Tylenol Supp) 650 mg Q4H PRN [place] TEMP > 37C; Start 12/26/16 at 18 :00 Acetaminophen (Tylenol Liquid) 650 mg Q4H PRN PO TEMP > 37C; Start 12/26/16 at 18:00 Eye Lubricant (Akwa Oint) 1 applic Q6 BOTH EYES Last administered on 12/30/16 12:19; Admin Dose 1 APPLIC; Start 12/26/16 at 18:00 Eye Lubricant (Artificial Tears Oph) 2 drop Q6 BOTH EYES Last administered on 12/30/16 12:18; Admin Dose 2 DROP; Start 12/26/16 at 18:00 Atropine Sulfate 0.5 mg 0.5 mg PRN PRN IV DECREASED HEART RATE; Start 12/26/16 at 22:00 Propofol 100 ml @ 1.86 mls/hr Q12H IV Last administered on 12/30/16 16:15; Admin Dose 7.44 MLS/HR; Start 12/27/16 at 23:30 Levetiracetam 100 ml @ 400 mls/hr Q12 IVPB Last administered on 12/30/16 08: 39; Admin Dose 400 MLS/HR; Start 12/28/16 at 11:00 Midazolam HCl 50 ml @ 1 mls/hr TITRATE IV Last administered on 12/30/16 06:19 ; Admin Dose 2 MLS/HR; Start 12/28/16 at 22:00 Vancomycin HCl/ Dextrose/Water (Vancocin/D5W) 150 ml @ 75 mls/hr Q12H IVPB Last administered on 12/30/16 12:18; Admin Dose 75 MLS/HR; Start 12/30/16 at 01 :00 Miscellaneous Information (*Rx Drug Level Order Reminder*) 1 ONCE ONCE XX ; Start 12/31/16 at 12:00; Stop 12/31/16 at 12:01 Famotidine (Pepcid Iv) 20 mg DAILY IV ; Start 12/31/16 at 09:00 JOVITA LERMA Dec 30, 2016 16:32
[2016-12-31] VITALS (28 sets, daily range): BP systolic 77–134; BP diastolic 52–82; PULSE 63–119; RESP 16–24
[2016-12-31] MEDS: VANCOMYCIN 750 MG in DEXTROSE 5% 150 ML IVPB SCH (01:00)
[2016-12-31] MEDS: PROPOFOL 100 ML IV SCH ×2 (02:01→06:48)
[2016-12-31] MEDS: ARTIFICIAL TEARS 15 ML OPH BOTH EYES SCH (05:20)
[2016-12-31] MEDS: OCULAR LUBRICANT 3.5 GM OPH OINT BOTH EYES SCH (05:20)
--- NOTE | 2016-12-31 07:22 | CONS ---
Date/Time of Note Date/Time of Note DATE: 12/31/16 TIME: 07:21 Consult Date/Type/Reason Admit Date/Time Dec 26, 2016 at 12:45 Initial Consult Date 12/26/16 Type of Consultation: card Ordering Provider: MAJOR ROBIN MD Subjective CARDIOLOGY FOLLOW UP NOTE: S: D.W STAFF and rhythm was reviewed. pt remains intubated on vent in ICU AND NONRESPONSIVE BP has remained stable code status is DNR now O: General: s/p intubation on vent and non responsive. HEENT: NC/AT. pupils are . round. NECK: no stridor. CV: RRR. systolic murmur; no gallop or rubs. PULM: + diffuse rhonchi. GI: SOFT, NT, ND, no rebound or guarding Extremity: trace B/L LE edema. no clubbing. neuro: non responsive Psych: unable to assess rectal: deferred : normal male echo personally reviewed: 1. Lower limits of normal systolic function. Normal left ventricular cavity size. Moderate concentric left ventricular hypertrophy. Paradoxical septal motion consistent with IVCD or bundle branch block. Ejection fraction is visually estimated at 50 %. Tissue Doppler/Mitral Doppler indices are consistent with impaired relaxation (Stage I diastolic dysfunction). Multiple segmental wall motion abnormalities. 2. Mild mitral leaflet calcification. Mild mitral annular calcification. Trace mitral regurgitation. 3. Normal appearance of the aortic valve. No significant aortic stenosis or insufficiency. Aortic cusps appear mildly calcified. Mild to moderate aortic valve regurgitation. 4. Normal IVC with poor respiratory collapse, however patient on ventilator. CT Chest results reviewed. CXR reviewed. Objective Vital Signs Date Time Temp Pulse Resp B/P Pulse Ox O2 Delivery O2 Flow Rate FiO2 12/31/16 06:00 74 20 115/70 99 Mechanical Ventilator 12/31/16 05:21 40 12/31/16 04:00 98.5 Intake and Output 12/30/16 12/30/16 12/31/16 15:00 23:00 07:00 Intake Total 665.12 ml 434.40 ml 1488.12 ml Output Total 435 ml 585 ml 510 ml Balance 230.12 ml -150.60 ml 978.12 ml Results/Medications Result Diagram: 12/29/16 0500 12/30/16 0500 Medications Current Medications Acetaminophen (Tylenol Supp) 650 mg Q4H PRN [place] TEMP > 37C; Start 12/26/16 at 18 :00 Acetaminophen (Tylenol Liquid) 650 mg Q4H PRN PO TEMP > 37C; Start 12/26/16 at 18:00 Eye Lubricant (Akwa Oint) 1 applic Q6 BOTH EYES Last administered on 12/31/16 05:20; Admin Dose 1 APPLIC; Start 12/26/16 at 18:00 Eye Lubricant (Artificial Tears Oph) 2 drop Q6 BOTH EYES Last administered on 12/31/16 05:20; Admin Dose 2 DROP; Start 12/26/16 at 18:00 Atropine Sulfate 0.5 mg 0.5 mg PRN PRN IV DECREASED HEART RATE; Start 12/26/16 at 22:00 Propofol 100 ml @ 1.86 mls/hr Q12H IV Last administered on 12/31/16 06:48; Admin Dose 11.16 MLS/HR; Start 12/27/16 at 23:30 Levetiracetam 100 ml @ 400 mls/hr Q12 IVPB Last administered on 12/30/16 20: 30; Admin Dose 400 MLS/HR; Start 12/28/16 at 11:00 Midazolam HCl 50 ml @ 1 mls/hr TITRATE IV Last administered on 12/30/16 06:19 ; Admin Dose 2 MLS/HR; Start 12/28/16 at 22:00 Vancomycin HCl/ Dextrose/Water (Vancocin/D5W) 150 ml @ 75 mls/hr Q12H IVPB Last administered on 12/31/16 01:00; Admin Dose 75 MLS/HR; Start 12/30/16 at 01 :00 Miscellaneous Information (*Rx Drug Level Order Reminder*) 1 ONCE ONCE XX ; Start 12/31/16 at 12:00; Stop 12/31/16 at 12:01 Famotidine (Pepcid Iv) 20 mg DAILY IV ; Start 12/31/16 at 09:00 Assessment/Plan Chief Complaint/Hosp Course 1. cardiopulmonary arrest: appears probably related to pulm arrest 2. abnormal ECG 3. anoxic brain injury and seizures 4. sepsis 5. severe lactic acidosis 6. hx dementia. 7. short P afib post arrest 8. small pneumothorax 9. hypoxemic resp failure: intubated now. 10. seizures 11.mildly abnormal trop due to above Recommendations: Patient has completed hypothermia protocol. neuro eval and managment as per IM/ neuro cont ICU care for now. prognosis is poor. vent support for now but family to consider withdrawal of care. code DNR now Thank you for his referral. We will continue to follow along with you. MARYA SAUER MD [facility] Problems: MARYA SAUER MD Dec 31, 2016 07:22
[2016-12-31] MEDS: LEVETIRACETAM 1000 MG (PMX) 100 ML IVPB SCH (08:20)
[2016-12-31] MEDS ORDERED: FAMOTIDINE 20 MG INJ IV SCH (09:00)
--- NOTE | 2016-12-31 09:23 | CONS ---
Date/Time of Note Date/Time of Note DATE: 12/31/16 TIME: 09:22 Consult Date/Type/Reason Admit Date/Time Dec 26, 2016 at 12:45 Initial Consult Date 12/26/16 Type of Consultation: Pulmonary Ordering Provider: MAJOR ROBIN MD Subjective No significant changes. Remains intubated on mechanical ventilation. Family meeting towards comfort measures. Objective Vital Signs Date Time Temp Pulse Resp B/P Pulse Ox O2 Delivery O2 Flow Rate FiO2 12/31/16 08:30 71 20 116/69 98 Mechanical Ventilator 12/31/16 08:00 40 12/31/16 08:00 97.9 Intake and Output 12/30/16 12/30/16 12/31/16 15:00 23:00 07:00 Intake Total 665.12 ml 434.40 ml 1518.12 ml Output Total 435 ml 585 ml 710 ml Balance 230.12 ml -150.60 ml 808.12 ml Exam PHYSICAL EXAMINATION GENERAL: Elderly gentleman, intubated on mechanical ventilation, VITAL SIGNS: see below. HEENT: Pupils equal, round, and reactive to light. CARDIAC: S1, S2, 1/6 systolic ejection murmur CHEST: Diminished air entry bilaterally. ABDOMEN: Mildly distended. Bowel sounds present no guarding or rebound EXTREMITIES: No cyanosis, clubbing edema +1 NEUROLOGIC: Generalized weakness Results/Medications Result Diagram: 12/29/16 0500 12/30/16 0500 Medications Current Medications Acetaminophen (Tylenol Supp) 650 mg Q4H PRN [place] TEMP > 37C; Start 12/26/16 at 18 :00 Acetaminophen (Tylenol Liquid) 650 mg Q4H PRN PO TEMP > 37C; Start 12/26/16 at 18:00 Eye Lubricant (Akwa Oint) 1 applic Q6 BOTH EYES Last administered on 12/31/16t 05:20; Admin Dose 1 APPLIC; Start 12/26/16 at 18:00 Eye Lubricant (Artificial Tears Oph) 2 drop Q6 BOTH EYES Last administered on 12/31/16t 05:20; Admin Dose 2 DROP; Start 12/26/16 at 18:00 Atropine Sulfate 0.5 mg 0.5 mg PRN PRN IV DECREASED HEART RATE; Start 12/26/16 at 22:00 Propofol 100 ml @ 1.86 mls/hr Q12H IV Last administered on 12/31/16 06:48; Admin Dose 11.16 MLS/HR; Start 12/27/16 at 23:30 Levetiracetam 100 ml @ 400 mls/hr Q12 IVPB Last administered on 12/31/16 08: 20; Admin Dose 400 MLS/HR; Start 12/28/16 at 11:00 Midazolam HCl 50 ml @ 1 mls/hr TITRATE IV Last administered on 12/30/16 06:19 ; Admin Dose 2 MLS/HR; Start 12/28/16 at 22:00 Vancomycin HCl/ Dextrose/Water (Vancocin/D5W) 150 ml @ 75 mls/hr Q12H IVPB Last administered on 12/31/16 01:00; Admin Dose 75 MLS/HR; Start 12/30/16 at 01 :00 Miscellaneous Information (*Rx Drug Level Order Reminder*) 1 ONCE ONCE XX ; Start 12/31/16 at 12:00; Stop 12/31/16 at 12:01 Famotidine (Pepcid Iv) 20 mg DAILY IV Last administered on 12/31/16 08:20; Admin Dose 20 MG; Start 12/31/16 at 09:00 Assessment/Plan Chief Complaint/Hosp Course IMP: 1. s/p Cardiopulmonary arrest--2/2 #2 2. Possible aspiration pneumonia/mucus plugging 3. Small right PTX 4. Hypoxemic respiratory failure. 5. Myoclonic jerks vs. non-convulsive status--both poor prognosticators in setting of anoxia+ preliminary EEG suggestive of status epilepticus PLAN: 1. Keppra IV and sedation as needed. 2. Broad-spectrum antibiotics 3. Continue neuro recs. 4. Continue nasogastric tube feeding 5. Likely comfort care today. With extubation Prognosis very poor. Critical care time 40 minutes. Problems: REJI FISHER MD, [facility] Dec 31, 2016 09:23
[2016-12-31] MEDS ORDERED: ONDANSETRON 4 MG INJ IV PRN (12:30)
[2016-12-31] MEDS ORDERED: morphine 4 MG/ML VIAL IV ONE (12:30)
[2016-12-31] MEDS ORDERED: ARTIFICIAL TEARS 15 ML OPH BOTH EYES PRN (12:30)
[2016-12-31] MEDS ORDERED: ATROPINE 1% 5 ML OPH SL PRN (12:30)
[2016-12-31] MEDS ORDERED: LORAZEPAM 2 MG INJ IV PRN ×2 (12:30)
[2016-12-31] MEDS: morphine (DRIP) 100 MG/100 ML 100 ML IV SCH ×3 (12:54→21:55)
[2016-12-31] MEDS: SCOPOLAMINE 1.5 MG PATCH TRANSDERM SCH (14:48)
--- NOTE | 2016-12-31 15:57 | DS ---
Date/Time of Note Date/Time of Note DATE: 12/31/16 TIME: 15:50 Discharge Summary Admission/Discharge Info Admit Date/Time Dec 26, 2016 at 12:45 Discharge Date/Time December 31, 2016 Discharge Diagnosis 1. s/p PEA arrest and hypothermia protocol Patient with persistent seizure activity, EEG does show seizure activity Family conference held plan is for DNR and inpatient hospice, patient to be extubated today 2. Respiratory failure: Plan for extubation today 3. Pneumothorax Likely from attempted IJ CVL, serial XR 4. History of severe dementia Patient Condition: Serious Hospital Course She has a 89 yo male with history of severe dementia, patient is a [facility] resident who presented after found with PEA arrest at [place]. EMS initiated ACLS, Intubated in field. Received 2 rounds of epinephrine in the field. Patient is status post hypothermia protocol, patient showed no signs of any functional brain status, patient continued to have seizure activity and was put on sedation. Patient did have an EEG which did suggest seizure activity. After family conference it was decided that patient will be made DNR, compassionate extubation will be done and patient will be transferred to inpatient hospice. Family was clear that patient would not have wanted artificial life support. Home Meds Unable to Obtain Active Prescriptions or Reported Meds Follow-up Plan Follow-up with physicians at hospice Primary Care Provider Care Physician No Primary Time spent on discharge: > 30 minutes JOVITA LERMA Dec 31, 2016 15:57
[2017-01-01] MEDS: morphine (DRIP) 100 MG/100 ML 100 ML IV SCH ×5 (03:14→22:27)
--- NOTE | 2017-01-01 07:02 | HP ---
DATE OF ADMISSION: 12/26/2016 LEVEL OF CARE: [facility]. PRIMARY HOSPITAL DIAGNOSES: 1. Cardiac arrest with anoxic encephalopathy. 2. Comorbid respiratory failure. 3. Pneumothorax. 4. Alzheimer's dementia. CHIEF COMPLAINT AND HISTORY OF PRESENT ILLNESS: History has been obtained from medical record as th e patient is nonverbal. Patient is an 89-year-old gentleman with a history of severe dementia. Ev gray is a resident of [facility] and presented after he was found with pulseless electrical activi ty at [facility]. Patient was brought into the hospital on 12/26/2016. Patient was intubated in field. CPR was performed. The patient was put on hypothermia protocol; however, after rewarming, demetra goyal did not have any improvement in his mental status. Family conference was held and patient's family decided to make him DNR and subsequently requested for hospice evaluation. Patient was seen by from cardiology standpoint, Dr. Christensen from pulmonary standpoint, Dr. Graf from [facility] medicine standpoint. Patient was to undergo terminal extubation today. No reported fever or clinical seizures today. No reported vomiting. Patient does have coarse breath sounds as mentioned above. REVIEW OF SYSTEMS: Limited as the patient is nonverbal. PAST MEDICAL HISTORY: As stated above. SOCIAL HISTORY: Could not be obtained. PAST SURGICAL HISTORY: Could not be obtained. FAMILY HISTORY: Could not be obtained. PHYSICAL EXAMINATION: GENERAL: Patient to be nonverbal and appears to have shortness of breath. VITAL SIGNS: Pulse 119, blood pressure 77/55, O2 saturation 99%, respirations 20, temperature 98. HEENT: No eye discharge or redness. Nose and ears normal. Oropharynx examination was deferred. NECK: No mass. CHEST: Coarse breath sounds. CARDIOVASCULAR: S1, S2 normal. No murmur. ABDOMEN: Soft, nondistended, nontender. EXTREMITIES: No edema. NEUROLOGIC: The patient is nonverbal. RECENT LABORATORY DATA: WBC 9.7, hemoglobin 9.8, platelets 148. Chemistry: Sodium 141, potassium 3.9, BUN 17, creatinine 0.7. CT brain was negative for any bleed. IMPRESSION: 1. Cardiopulmonary arrest. 2. Anoxic encephalopathy. 3. History of Alzheimer's dementia. 4. Acute respiratory failure. PLAN: The patient will be terminally extubated and prior to extubation, the patient will receive 5 mg of morphine and 2 mg of Ativan, and subsequently he will be started on morphine drip at 1 mg an h our, which will be titrated up by 1 mg every 15 minutes. The patient will also be started on atropi ne drops for congestion and IV Ativan q.2 hours p.r.n. for anxiety and seizures. We will also place scopolamine patch as patient already has significant chest congestion due to secretions. I met wit h patient's daughter and updated regarding plan of care. [facility] at [facility]. The patient remains terminally ill and appropriate for [facility] level of care. Dictated By: FAHEEM LOPES MD AB/NTS Conf#: [id number] DID#: [id number] CC: MIGUEL ANGEL GARSIA MD;*End*
[2017-01-01 12:00] VITALS: BP 120/68; PULSE 89
--- NOTE | 2017-01-01 13:06 | PN ---
DATE: 01/01/2017 LEVEL OF CARE: [facility] PRIMARY HOSPITAL DIAGNOSIS: Cardiac arrest, anoxic encephalopathy, dementia pneumothorax and respir atory failure. Since yesterday the patient has continued to decline and due to shortness of breath, patient's morphine dose has been progressively increased to 23 mg an hour. The patient's pain and shortness of breath seems controlled now. Patient's blood pressure is in the 70s. The patient has continued to remain nonverbal and is now completely unresponsive. No reported seizure, no reported temperature spike. PHYSICAL EXAMINATION: GENERAL: The patient is nonverbal. VITAL SIGNS: Last blood pressure systolic in the 70s, heart rate in the low 100s, temperature 98.2, O2 saturation 97%. HEENT: No eye discharge or redness. Nose and ears normal. NECK: No mass. CHEST: Coarse breath sounds. CARDIOVASCULAR: S1, S2 normal. No murmur. ABDOMEN: Soft, nondistended. EXTREMITIES: Edema present. NEUROLOGIC: The patient is nonverbal. IMPRESSION: 1. Cardiac arrest with anoxic encephalopathy 2. Dementia. 3. Recent pneumothorax which has improved now on a resting chest x-ray. PLAN: Continue morphine drip at 23 mg an hour and will continue to increase as necessary. Due to i ncreasing secretions, will change atropine drops to 2 q.4h. around the clock. The patient remains t erminally ill. I met with the patient's daughter and updated her regarding patient's condition and plan of care. Dictated By: FAHEEM RICHARDSON/MICHAEL Conf#: [id number] DID#: [id number]
[2017-01-01] MEDS: DIMETHICONE STICK TOP PRN ×2 (16:21→22:27)
[2017-01-01] MEDS: ATROPINE 1% 5 ML OPH SL SCH ×2 (16:21→21:01)
[2017-01-01 18:30] VITALS: BP 112/71; PULSE 86; RESP 15
[2017-01-02] MEDS: ATROPINE 1% 5 ML OPH SL SCH ×6 (00:07→21:09)
[2017-01-02] MEDS: morphine (DRIP) 100 MG/100 ML 100 ML IV SCH ×5 (03:37→21:42)
[2017-01-02] MEDS: DIMETHICONE STICK TOP PRN (03:45)
[2017-01-02] MEDS ORDERED: INFLUENZA VIRUS VACCINE 0.5 ML (DISPENSING) IM* ONE (09:00)
[2017-01-02] MEDS ORDERED: ACETAMINOPHEN 120 MG SUPP PR PRN (15:00)
[2017-01-02] MEDS ORDERED: ACETAMINOPHEN 650 MG SUPP PR PRN (15:30)
[2017-01-03] MEDS: ATROPINE 1% 5 ML OPH SL SCH ×6 (00:36→19:46)
[2017-01-03] MEDS: morphine (DRIP) 100 MG/100 ML 100 ML IV SCH ×6 (01:47→21:00)
--- NOTE | 2017-01-03 02:07 | PN ---
DATE: 01/02/2017 SUBJECTIVE: Follow up on cardiac arrest with anoxic encephalopathy, recent respiratory failure, dem entia. The patient since yesterday has continued to decline. Did have increasing shortness of precious th and chest congestion; therefore, morphine dose has been increased to 25 mg an hour. No reported seizure. The patient also had terminal fever for which the patient received Tylenol suppository. B ecause of increasing chest congestion and secretion, atropine drops have been made around the clock with improvement. The patient did not have any vomiting, no reported seizures. PHYSICAL EXAMINATION: GENERAL: The patient is nonverbal. VITAL SIGNS: Blood pressure 112/71, pulse 56, respirations 15, O2 saturation 94%. HEENT: No eye discharge or redness. NECK: No mass. CHEST: Coarse breath sounds. CARDIOVASCULAR: Regular rate and rhythm. ABDOMEN: Soft, nondistended. EXTREMITIES: ____ edema. NEUROLOGIC: The patient is nonverbal. IMPRESSION: 1. Cardiac arrest leading to anoxic encephalopathy. 2. Alzheimer dementia. 3. Recent pneumothorax, resolved. PLAN: Will continue morphine drip at 25 mg an hour, which will be titrated up as necessary for comf ort care. Continue scopolamine patch and atropine drops for secretions. The patient remains termin ally ill and appropriate for [facility] level of care. Plan of care discussed with Demetris Grace. Dictated By: FAHEEM RICHARDSON/NTS Conf#: [id number] DID#: [id number] CC: MIGUEL ANGEL GARSIA MD;*EndCC*
[2017-01-03 08:22] VITALS: RESP 12
--- NOTE | 2017-01-03 08:48 | PN ---
Date/Time of Note Date/Time of Note DATE: 01/03/17 TIME: 08:47 Assessment/Plan VTE Prophylaxis VTE Prophylaxis Intervention: other Lines/Catheters IV Catheter Type (from Nrsg): Central Line Central line still needed: Yes Urinary Cath still in place: Yes Reason Cath still needed: skin wounds contaminated by urine Assessment/Plan Chief Complaint/Hosp Course 1. Cardiac arrest leading to anoxic encephalopathy. 2. Alzheimer dementia. 3. Recent pneumothorax, resolved. - on hospice care Problems: Subjective 24 Hr Interval Summary Free Text/Dictation Patient is stable, resting Exam/Review of Systems Vital Signs Vitals Vital Signs Date Time Temp Pulse Resp B/P Pulse Ox O2 Delivery O2 Flow Rate FiO2 01/03/17 08:22 12 01/03/17 01:06 2.0 01/02/17 20:00 Nasal Cannula 01/01/17 18:30 86 112/71 94 12/31/16 21:56 98.2 12/31/16 20:48 27 Intake and Output 01/02/17 01/02/17 01/03/17 15:00 23:00 07:00 Intake Total 131 ml 100 ml 0 ml Output Total 800 ml 1400 ml Balance 131 ml -700 ml -1400 ml Exam Constitutional: well developed Head: atraumatic, normocephalic Neck: supple Respiratory: diminished breath sounds Cardiovascular: regular rate and rhythm Gastrointestinal: non-tender, soft Extremities: normal pulses Results Result Diagram: 12/30/16 0500 Medications Medications Current Medications Morphine Sulfate/ Sodium Chloride (morphine) 100 ml @ 1 mls/hr TITRATE IV Last administered on 01/03/17 05:58; Admin Dose 25 MLS/HR; Start 12/31/16 at 12:30 Lorazepam (Ativan) 2 mg Q2H PRN IV ANXIETY/SEIZURES Last administered on 14:44; Admin Dose 2 MG; Start 12/31/16 at 12:30 Ondansetron HCl (Zofran Inj) 4 mg Q6H PRN IV NAUSEA AND/OR VOMITING; Start 12/31/16 at 12:30 Scopolamine (Transderm-Scop) 1 patch Q72H TRANSDERM Last administered on 14:48; Admin Dose 1 PATCH; Start 12/31/16 at 12:30 Atropine Sulfate (Atropine 1% Oph) 2 drop Q4H SL Last administered on t 08:19; Admin Dose 2 DROP; Start 01/01/17 at 16:30 Acetaminophen (Tylenol Supp) 650 mg Q4H PRN [place] PAIN OR TEMP ABOVE 38C; Start 01/02/17 at 15:30 MARTY GILBERT Jan 03, 2017 08:48
[2017-01-03] MEDS: SCOPOLAMINE 1.5 MG PATCH TRANSDERM SCH (12:45)
[2017-01-03 19:30] VITALS: RESP 22
[2017-01-03] MEDS: DIMETHICONE STICK TOP PRN (19:46)
[2017-01-03 21:00] VITALS: RESP 28
[2017-01-03 21:20] VITALS: RESP 20
[2017-01-03 22:16] VITALS: RESP 14
--- NOTE | 2017-01-03 22:22 | NEURPT ---
DATE: 12/28/2016 EKG done using 10-20 [employer] electrode system with photic stimulation. Bilateral occipital he mispheres showed delta and theta wave low symmetric bilateral, 6 to 7 Hz. No epileptiform dis charge or seizure activity recorded. Photic stimulation done did not elicit a drive. IMPRESSION: This is abnormal electroencephalogram, showed generalized slowing consistent with a his tory of underlying possible dementia. No epileptiform discharge or seizure activity is recorded. F ollowup EEG may be needed if clinically indicated. Again, thank you for asking me to see the patient with you. Dictated By: NAIDA CAST/NTS Conf#: [id number] DID#: [id number]
[2017-01-04] MEDS: ATROPINE 1% 5 ML OPH SL SCH (00:30)
== END 2017-01-04 05:10 | disposition expired | DRG 870 ==
LOC: E/R 11:50 → ICU 12:45 → MS1 12-31 21:19
PROVIDERS: ADMIT Internal Medicine; ATTEND Internal Medicine
PROC: 5A1955Z Respiratory Ventilation, Greater than 96 Consecutive Hours (ICD-10-PCS; principal; 2016-12-26)
PROC: 06HM33Z Insertion of Infusion Device into Right Femoral Vein, Percutaneous Approach (ICD-10-PCS; 2016-12-26)
DX: A41.9 Sepsis, unspecified organism (principal); J96.91 Respiratory failure, unspecified with hypoxia; I46.9 Cardiac arrest, cause unspecified; R65.21 Severe sepsis with septic shock; E87.2 Acidosis; G93.1 Anoxic brain damage, not elsewhere classified; J93.9 Pneumothorax, unspecified; E87.6 Hypokalemia; I48.91 Unspecified atrial fibrillation; R56.9 Unspecified convulsions; R79.89 Other specified abnormal findings of blood chemistry; G30.9 Alzheimer's disease, unspecified; F02.80 Dementia in other diseases classified elsewhere, unspecified severity, without behavioral disturbance, psychotic disturbance, mood disturbance, and anxiety; Z66 Do not resuscitate
CPT/HCPCS: 36415; 36600; 70450; 71010; 71275; 75635; 76937; 80048; 80053; 80202; 82150; 82310; 82550; 82553; 82803; 82962; 83605; 83690; 83735; 84100; 84443; 84484; 85025; 85384; 85610; 85730; 87040; 87081; 90686; 93005; 93306; 94002; 94003; 94770; 95819; 96374; 96375; C9113; J0171; J0461; J0692; J1815; J1953; J2060; J2270; J3370; J3475; J3480; J7030; J7040; J7042; Q9967